=== PATIENT | male | born 1965 | race Caucasian/White ===

== ENCOUNTER 2022-08-18 15:30 | Outpatient (RCR) | payer OTHER, SELFPAY | END 2023-02-05 23:59 | disposition home or self-care (01) | PROVIDERS: PCP Family Medicine; Visit Provider Student in an Organized Health Care Education/Training Program | DX: M54.50 Low back pain, unspecified (principal); M70.61 Trochanteric bursitis, right hip; M54.6 Pain in thoracic spine; Z51.89 Encounter for other specified aftercare | CPT/HCPCS: 97110; 97140; 97162 ==

== ENCOUNTER 2023-02-17 07:01 | Day surgery (SDC) | payer OTHER, SELFPAY ==
[2023-02-17] VITALS (12 sets, daily range): BP systolic 130–157; BP diastolic 62–92; PULSE 52–68; RESP 12–16; TEMP 36.3–36.6; O2SAT 96–99; BMI 39.4
[2023-02-17] MEDS: SODIUM CHLORIDE 0.9 % (FLUSH) 10 ML SYRINGE IVF (07:50)
[2023-02-17] MEDS: LACTATED RINGERS 1000 ML 1,000 ML 100 ML IV (07:50)
--- NOTE | 2023-02-17 09:00 | W.ANESCHARGE ---
Anesthesia Charges Start Date/Time Anesthesia Start Date: 02/17/23 Anesthesia Start Time: 08:30 Stop Date/Time Anesthesia Stop Date: 02/17/23 Anesthesia Stop Time: 09:47
--- NOTE | 2023-02-17 09:10 | W.ANESCHARGE ---
Anesthesia Charges Start Date/Time Anesthesia Start Date: 02/17/23 Anesthesia Start Time: 08:30 Stop Date/Time Anesthesia Stop Date: 02/17/23 Anesthesia Stop Time: 09:47
--- NOTE | 2023-02-17 09:31 | P.ORPRC_ITS ---
Procedure Note Date of procedure: 02/17/23 Procedure: PREOPERATIVE DIAGNOSIS: Right knee medial meniscus root tear POSTOPERATIVE DIAGNOSIS: Right knee medial meniscus root tear NAME OF OPERATION: Right knee arthroscopic medial meniscus root repair SURGEON: Williams Ye MD FIRE PREVENTION CAPTAIN: Winifred Lovett PA-C ANESTHESIA: Spinal ESTIMATED BLOOD LOSS: 0 mL COMPLICATIONS: None SPECIMENS: None DRAINS: None PREOPERATIVE ANTIBIOTICS: Ancef 3 gram INDICATIONS: The patient is a 57-year-old male with a history of right knee medial pain. MRI scan is consistent with a medial meniscus root tear. Despite appropriate nonoperative management, including activity modification, antiinflammatories, [id number] pain medication, bracing, physical therapy, and injections they continue to have pain and disability. Operative intervention was offered. The risks, benefits and expected outcomes were discussed in detail. These included but were not limited to: Infection, bleeding, injury to blood vessel or nerve, venous thromboembolism. All questions were answered to their satisfaction. PROCEDURE: Spinal anesthesia was administered. The patient was placed supine on the operating room table. The right lower extremity was prepped and draped in the usual sterile fashion. The limb was exsanguinated with the Johnie bandage. The pneumatic tourniquet was inflated to 300 mmHg. A standard anterolateral portal was established. The arthroscope was introduced. The working portal was established anteromedially. Diagnostic arthroscopy was performed with findings as follows: The suprapatellar pouch is normal. Articular surface on the patella is normal. Articular surface on the trochlea is normal. The medial gutter is normal. The medial compartment shows diffuse grade 3 change on the medial femoral condyle, grade 2 change on the medial tibial plateau. The medial meniscus has a radial tear from the leading edge, to the capsule, just off of the posterior tibial attachment. This completely detached is it from the tibia. The notch shows the ACL to be intact. The lateral compartment shows normal articular cartilage on the lateral femoral condyle and lateral tibial plateau. The lateral meniscus is normal. The lateral gutter is normal. Unstable chondral flaps on the medial femoral condyle were debrided with the shaver. The knee scorpion was used to pass a fiber link x 2 in the posterior horn of the medial meniscus. The tibial drill guide was used over the footprint of the root. A longitudinal incision over the anteromedial face of the tibia was placed. The flip cutter was drilled into the footprint. The flip cutter was flipped and back cut 10 mm. It was removed and exchanged for a fiber stick. The fiber stick was brought out the anteromedial portal and was used to shuttle both of the fiber link luggage tag sutures on the posterior horn out the anteromedial tibia. We then tensioned the sutures and fixed them to the tibia with a SwiveLock anchor. This provided an excellent repair of the posterior tibial attachment of the medial meniscus to its anatomic footprint. Arthroscopic instruments were removed, the portal sites were Steri-Stripped closed, the incision over the tibia was closed with 3-0 Vicryl and 4-0 Monocryl, the knee was infiltrated with 30 mL of 0.25% Marcaine without epinephrine. A dry dressing was applied, the tourniquet was released. Sponge and needle counts were correct x 2. The patient tolerated the procedure well. There were no apparent complications. They were carefully transferred to the hospital bed and taken to the postanesthesia care unit in satisfactory condition. PLAN: The patient will be discharged to home. They will be strict nonweightbearing on the lower extremity for 6 weeks postoperatively. Range of motion will be allowed from 0-90 degrees x 2 weeks then unrestricted range of motion. They will follow up in 1-2 weeks for a wound check. We will
--- NOTE | 2023-02-17 09:32 | P.NB_ITS ---
Nerve Block Nerve Block Time Seen by Provider: 09:31 Date Seen: 02/17/23 Type of block requested by surgeon for post-operative analgesia: geniculars Side: right Time out performed: Yes Verification of patient name: Yes Verification of date of : Yes Site marking: site marked Name of person performing procedure: Tristan Continuous monitoring Was continuous monitoring of O2 sat, B/P, alarm security or surveillance monitor, recorded every 15 minutes?: Yes Procedure Checklist: sterile prep, needles and gloves Medications given in 5ml increments after negative aspiration: Ropivicaine %: 0.5 mL: 9 Needle gauge: 25 Patient tolerated procedure well: Yes Block Charges Block Charge (with Pro Fee): Genicular Nerve Block Use of Ultrasound Machine for Block: No
[2023-02-17] MEDS: fentaNYL 100 MCG/2 ML inj 50 MCG IVP (10:00)
[2023-02-17] MEDS: hydrOXYzine pamoate 25 MG CAPSULE PO (11:30)
[2023-02-17] MEDS: OxyCODONE/APAP 5-325 TABLET PO (11:30)
== END 2023-02-17 12:00 | disposition home or self-care (01) ==
PROVIDERS: PCP Family Medicine; Visit Provider Orthopaedic Surgery
PROC: (CPT 29882; principal; 2023-02-17 08:15)
DX: S83.241A Other tear of medial meniscus, current injury, right knee, initial encounter (principal); G89.18 Other acute postprocedural pain
CPT/HCPCS: 29882; 01400; 64454; 82962; A9270; C1713; J1100; J1170; J2250; J2405; J2704; J2795; J3010; J7120

== ENCOUNTER 2023-04-30 08:46 | Emergency (ER) | payer OTHER, SELFPAY ==
[2023-04-30 08:50] VITALS: BP 144/80; PULSE 76; RESP 16; TEMP 36.3; O2SAT 97; BMI 38.7
--- NOTE | 2023-04-30 09:09 | CRLHL7_ITS ---
For Patients: As a result of the Cures Act, medical imaging exams and procedure reports are released immediately into your electronic medical record. You may view this report before your referring provider. If you have questions, please contact your health care provider. Indication: SMASHED FINGER, 2ND DIGIT TIP PAIN Technique: Left hand 2nd digit, 3 views. Comparison: None. Impression: Mildly comminuted fracture involving the medial tuft of the 2nd distal phalanx. Tiny adjacent avulsed fracture fragments. Subjacent soft tissue swelling. Dictated by Marquise Beltran MD @ 04/30/2023 9:32:46 AM (Electronically Signed)
--- NOTE | 2023-04-30 09:10 | ED_ITS ---
HPI - Wound/Laceration General Chief Complaint: Laceration/Wound Stated Complaint: L pointer finger lac Time Seen by Provider: 04/30/23 08:55 History of Present Illness HPI narrative: Patient is a 57-year-old gentleman up-to-date on his tetanus shot who was working outside today pinched his finger between hitch and a left. He suffered a laceration approximately 3 cm in length on the palmar aspect of his left index finger. He is not certain whether the bone underneath the laceration feels broken. Is no neural muscular defects and hemostasis has been achieved. No other concerns are noted. No other injuries noted. Related Data Home Medications Medication Instructions Recorded Confirmed acetaminophen 500 mg tablet 500 mg PO Q6H PRN 01/12/23 04/30/23 (Tylenol Extra Strength) gabapentin 300 mg capsule 300 mg PO TID 01/12/23 04/30/23 naproxen sodium 220 mg capsule 220 mg PO BID PRN 01/12/23 04/30/23 (Aleve) tamsulosin 0.4 mg capsule 0.8 mg PO DAILY 01/12/23 04/30/23 tramadol 50 mg tablet 50 mg PO 3XD PRN 01/12/23 04/30/23 calcium citrate 315 mg-vitamin D3 1 tab PO TID 02/13/23 04/30/23 5 mcg (200 unit) tablet hyoscyamine sulfate 0.125 mg 0.125 mg PO Q4H PRN 02/13/23 04/30/23 sublingual tablet omeprazole 20 mg capsule,delayed 20 mg PO DAILY 02/13/23 04/30/23 release sildenafil 50 mg tablet 50 mg PO PRN PRN 02/13/23 04/30/23 valacyclovir 1 gram tablet 1,000 mg PO BID PRN 02/13/23 04/30/23 (Valtrex) Previous Rx's Medication Instructions Recorded cephalexin 500 mg capsule 500 mg PO TID 7 days #21 caps 04/30/23 Allergies Allergy/AdvReac Type Severity Reaction Status Date / Time penicillin V Allergy Mild Rash Verified 04/30/23 08:54 NSAIDS (Non-Steroidal AdvReac Verified 04/30/23 08:54 Anti-Inflamma Blood group specific Allergy Uncoded 04/01/23 10:48 Substance Review of Systems Status of ROS: Reports: 10 or more systems reviewed and unremarkable except as noted in History and below PFSH PFSH Medical History Hx of pilonidal cyst ?Z87.2 - Personal history of diseases of the skin and subcutaneous tissue (ICD-10) Type 2 diabetes mellitus ?E11.9 - Type 2 diabetes mellitus without complications (ICD-10) Pulmonary nodule ?R91.1 - Solitary pulmonary nodule (ICD-10) Neuropathy ?G62.9 - Polyneuropathy, unspecified (ICD-10) Anxiety state, unspecified ?F41.1 - Generalized anxiety disorder (ICD-10) Diverticulitis ?K57.92 - Diverticulitis of intestine, part unspecified, without perforation or abscess without bleeding (ICD-10) Plantar fasciitis of left foot (~2011) ?M72.2 - Plantar fascial fibromatosis (ICD-10) Medial epicondylitis, right elbow (~11/2017) ?M77.01 - Medial epicondylitis, right elbow (ICD-10) Lateral epicondylitis, right elbow (~11/2017) ?M77.11 - Lateral epicondylitis, right elbow (ICD-10) Bilateral shoulder bursitis ?M75.51 - Bursitis of right shoulder (ICD-10) ?M75.52 - Bursitis of left shoulder (ICD-10) Surgical History History of medial meniscus repair of right knee (02/17/23) ?Z98.890 - Other specified postprocedural states (ICD-10) Hx of vasectomy ?Z98.52 - Vasectomy status (ICD-10) History of bariatric surgery ?Z98.84 - Bariatric surgery status (ICD-10) History of arthroscopy of left knee (10/25/20) ?Z98.890 - Other specified postprocedural states (ICD-10) Family History Mother Lung cancer Diabetes Heart disease Father Diabetes Heart disease Other Aneurysm Bleeding disorder Social History Smoking Status: Never smoker Do you use any of these nicotine containing products: Smokeless Tobacco How often do you have a drink containing alcohol: monthly or less How many standard drinks containing alcohol do you have on a typical day: 1 or 2 How often do you have six or more drinks on one occasion: Never AUDIT-C Alcohol total score: 1 Non-prescribed substance use: denies use Caffeine: Yes (8c/day) service: No Exam Narrative: Exam Narrative: EXAM GENERAL: Patient appears comfortable and well. EYES: No scleral icterus. ENT: Tympanic membranes and oropharynx normal. THYROID: no thyroid nodules or thyromegaly. LYMPH: No supraclavicular or cervical lymphadenopathy. SKIN: Well-approximated laceration noted on the palmar surface of the index finger on the left. 3 cm in length. EXT: No dependent lower extremity pedal edema. HEART: Regular rate and rhythm with no murmurs, rubs, or gallops. LUNGS: Clear to auscultation bilaterally with no crackles or wheezes. ABD: Soft, non tender, non distended. PSYCH: Good eye contact, speech is not pressured. Const: Vital Signs, click to edit/add: Vital Signs - 24 hr 04/30/23 08:50 Temperature 97.4 F L Pulse Rate [Pulse Oximeter] 76 Respiratory Rate 16 Blood Pressure [Ri ght Upper Arm] 144/80 H Pulse Oximetry 97 Oxygen Delivery Me thod Room Air Course Course ED Course: Patient seen and examined. Wound is cleaned. X-ray ordered. Vital Signs Vital signs: Initial Vital Signs Temperature 97.4 F L 04/30/23 08:50 Temperature Source Temporal Artery Scan 04/30/23 08:50 Pulse Rate 76 04/30/23 08:50 Respiratory Rate 16 04/30/23 08:50 Blood Pressure 144/80 H 04/30/23 08:50 Blood Pressure Mean 101 04/30/23 08:50 Blood Pressure Position Sitting 04/30/23 08:50 Pulse Oximetry 97 04/30/23 08:50 Oxygen Delivery Method Room Air 04/30/23 08:50 Vital Signs Temperature 97.4 F L 04/30/23 08:50 Pulse Rate 76 04/30/23 08:50 Respiratory Rate 16 04/30/23 08:50 Blood Pressure 144/80 H 04/30/23 08:50 Pulse Oximetry 97 04/30/23 08:50 Oxygen Delivery Method Room Air 04/30/23 08:50 Temperature 97.4 F L 04/30/23 08:50 Pulse Rate 76 04/30/23 08:50 Respiratory Rate 16 04/30/23 08:50 Blood Pressure 144/80 H 04/30/23 08:50 Pulse Oximetry 97 04/30/23 08:50 Oxygen Delivery Method Room Air 04/30/23 08:50 MDM - Wound/Laceration MDM Narrative Medical decision making narrative: Patient is a 57-year-old gentleman who pinched his left index finger between his trailer and his hitch. He suffered a 3 cm laceration on the palmar surface of his left index finger. He on x-ray does have a small avulsion fracture at the tip of his finger. I did review this with Ortho I did recommend closure of the laceration as well as antibiotic prophylaxis. After explaining the risks and benefits I did provide a digital block of the left index finger. I then aggressively irrigated the wound after which I close the defect with 7 running 3-0 Ethilon [address] did place him in a protective with finger splint. We recommend that he get his sutures out in approximately 10 days. In addition, I did cover him with Keflex for the next week due to the location of his wound. Differential Diagnosis Differential diagnosis: Likely laceration, abscess, abrasion and avulsion of skin Discharge Plan Discharge Clinical Impression: Laceration Patient Disposition: Home, Self-Care Condition: Stable Instructions: Finger Laceration (ED) Additional Instructions: Keep wound covered in clean Change bandage daily Sutures out in approximately 10 days. Keflex for the next week. Activity Level: No Restrictions Discharge Diet: Regular Prescriptions: New cephalexin 500 mg capsule 500 mg PO TID 7 Days Qty: 21 0RF No Action tramadol 50 mg tablet 50 mg PO 3XD PRN gabapentin 300 mg capsule 300 mg PO TID tamsulosin 0.4 mg capsule 0.8 mg PO DAILY acetaminophen [Tylenol Extra Strength] 500 mg tablet 500 mg PO Q6H PRN naproxen sodium [Aleve] 220 mg capsule 220 mg PO BID PRN calcium citrate-vitamin D3 315 mg-5 mcg (200 unit) tablet 1 tab PO TID hyoscyamine sulfate 0.125 mg tablet, sublingual 0.125 mg PO Q4H PRN omeprazole 20 mg capsule,delayed release(DR/EC) 20 mg PO DAILY sildenafil 50 mg tablet 50 mg PO PRN PRN valacyclovir [Valtrex] 1 gram tablet 1,000 mg PO BID PRN Follow Up/Referrals: Trell Akins MD [Primary Care Provider] - Stand Alone Forms: [employer] [facility] Info Instructions
--- NOTE | 2023-04-30 09:47 | ED.NURSE ---
soaking the left hand in Hibiclens and water after Dr. Samayoa placed a local in the index finger on the left hand.
== END 2023-04-30 10:23 | disposition home or self-care (01) ==
PROVIDERS: Emergency Provider Internal Medicine; PCP Family Medicine
DX: S61.211A Laceration without foreign body of left index finger without damage to nail, initial encounter (principal); W23.0XXA Caught, crushed, jammed, or pinched between moving objects, initial encounter
CPT/HCPCS: 12002; 73140; 99283

== ENCOUNTER 2023-05-15 11:05 | Emergency (ER) | payer OTHER, SELFPAY ==
[2023-05-15 11:33] LABS: Appearance Urine Clear (Clear); Bilirubin Urine Negative (Negative); Blood Urine Negative (Negative); Color Urine Yellow (Yellow); Glucose Urine Negative (Negative); Ketones Urine Negative (Negative); Leukocyte Esterase Urine Negative (Negative); Nitrite Urine Negative (Negative); Protein Urine Negative (Negative); Specific Gravity Urine 1.015 (1.000-1.030); Urobilinogen Urine 0.2 (0.2-1.0); pH Urine 5.5 (5.0-8.5)
[2023-05-15 11:48] VITALS: BP 131/88; PULSE 75; RESP 18; TEMP 36.4; O2SAT 98; BMI 37.6
--- NOTE | 2023-05-15 12:21 | ED.ABDPAIN ---
HPI - Abdominal Pain General Time Seen by Provider: 12:21 Date Seen: 05/15/23 Chief Complaint: Abdominal Pain Stated Complaint: L side abdominal pain, diverticulitis flare up Time Seen by Provider: 05/15/23 12:21 Source: patient and RN notes reviewed Mode of arrival: ambulatory Limitations: no limitations History of Present Illness HPI narrative: Darline is a very pleasant 57-year-old gentleman with a history of diverticulitis, recent orthopedic surgeries who comes to the emergency room for evaluation of abdominal pain. Does notes that this started last night and seemed to be rather sudden. He states that within an hour it was rather severe. He is showing this to be his left upper quadrant. It is not associated with fever, chills. He has noticed increased constipation but no blood in his stools lately. He notes that he has had episodes of diverticulitis in the past in this particular area. It has not happened for a couple of years. He states he has had a colonoscopy and even a surgical consult but at the that time it was decided that he did not need to have surgery. He is preferring to lie still and seems to have more discomfort with movement. Patient does imply that the pain radiates to the left side of the abdomen and maybe even to the back a bit Patient did have COVID 3 weeks ago otherwise has been healthy with no fever cough cold today. Related Data Home Medications Medication Instructions Recorded Confirmed acetaminophen 500 mg tablet 500 mg PO Q6H PRN 01/12/23 05/13/23 (Tylenol Extra Strength) gabapentin 300 mg capsule 300 mg PO TID 01/12/23 05/13/23 naproxen sodium 220 mg capsule 220 mg PO BID PRN 01/12/23 05/13/23 (Aleve) tamsulosin 0.4 mg capsule 0.8 mg PO DAILY 01/12/23 05/13/23 tramadol 50 mg tablet 50 mg PO 3XD PRN 01/12/23 05/13/23 calcium citrate 315 mg-vitamin D3 1 tab PO TID 02/13/23 05/13/23 5 mcg (200 unit) tablet hyoscyamine sulfate 0.125 mg 0.125 mg PO Q4H PRN 02/13/23 05/13/23 sublingual tablet omeprazole 20 mg capsule,delayed 20 mg PO DAILY 02/13/23 05/13/23 release sildenafil 50 mg tablet 50 mg PO PRN PRN 02/13/23 05/13/23 valacyclovir 1 gram tablet 1,000 mg PO BID PRN 02/13/23 05/13/23 (Valtrex) Allergies Allergy/AdvReac Type Severity Reaction Status Date / Time penicillin V Allergy Mild Rash Verified 05/28/23 11:55 NSAIDS (Non-Steroidal AdvReac Verified 05/28/23 11:55 Anti-Inflamma Blood group specific Allergy Uncoded 05/13/23 14:33 Substance Review of Systems Status of ROS Reports: 10 or more systems reviewed and unremarkable except as noted in History and below Const Denies: fever, chills, change in weight or fatigue ENMT Denies: difficulty swallowing Cardio Denies: chest pain or shortness of breath with exertion Resp Denies: shortness of breath or cough GI Reports: abdominal pain and constipation; Denies: nausea, vomiting, diarrhea, difficulty swallowing or blood in stool Denies: painful urination or urinary frequency Endo Denies: fatigue PFSH PFSH Medical History Hx of pilonidal cyst ?Z87.2 - Personal history of diseases of the skin and subcutaneous tissue (ICD-10) Type 2 diabetes mellitus ?E11.9 - Type 2 diabetes mellitus without complications (ICD-10) Pulmonary nodule ?R91.1 - Solitary pulmonary nodule (ICD-10) Neuropathy ?G62.9 - Polyneuropathy, unspecified (ICD-10) Anxiety state, unspecified ?F41.1 - Generalized anxiety disorder (ICD-10) Diverticulitis ?K57.92 - Diverticulitis of intestine, part unspecified, without perforation or abscess without bleeding (ICD-10) Plantar fasciitis of left foot (~2011) ?M72.2 - Plantar fascial fibromatosis (ICD-10) Medial epicondylitis, right elbow (~11/2017) ?M77.01 - Medial epicondylitis, right elbow (ICD-10) Lateral epicondylitis, right elbow (~11/2017) ?M77.11 - Lateral epicondylitis, right elbow (ICD-10) Bilateral shoulder bursitis ?M75.51 - Bursitis of right shoulder (ICD-10) ?M75.52 - Bursitis of left shoulder (ICD-10) Surgical History History of medial meniscus repair of right knee (02/17/23) ?Z98.890 - Other specified postprocedural states (ICD-10) Hx of vasectomy ?Z98.52 - Vasectomy status (ICD-10) History of bariatric surgery ?Z98.84 - Bariatric surgery status (ICD-10) History of arthroscopy of left knee (10/25/20) ?Z98.890 - Other specified postprocedural states (ICD-10) Family History Mother Lung cancer Diabetes Heart disease Father Diabetes Heart disease Other Aneurysm Bleeding disorder Social History Smoking Status: Never smoker Do you use any of these nicotine containing products: Smokeless Tobacco Second hand tobacco smoke exposure: Yes How often do you have a drink containing alcohol: monthly or less How many standard drinks containing alcohol do you have on a typical day: 1 or 2 How often do you have six or more drinks on one occasion: Never AUDIT-C Alcohol total score: 1 Non-prescribed substance use: denies use Caffeine: Yes (8c/day) service: No Exam Narrative: Exam Narrative: Patient is alert and oriented very well-spoken gentleman in no acute distress. He is moving slowly it does appear to be uncomfortable with movement. External ears eyes nose clear. Speech is normal mentation normal. Heart with regular rate and rhythm without murmur or rub Lungs are clear bilaterally. Abdomen is soft and not bloated. Tenderness noted in the left upper quadrant. No significant rebound tenderness. Lower extremities without edema calf tenderness. Const: Vital Signs, click to edit/add: Vital Signs - 24 hr 05/15/23 11:48 Temperature 97.6 F Pulse Rate [Pulse Oximeter] 75 Respiratory Rate 18 Blood Pressure [Ri ght Upper Arm] 131/88 Pulse Oximetry 98 Oxygen Delivery Me thod Room Air Documenting provider has reviewed patient's vital signs: yes Course Course ED Course: Differential diagnosis includes but is not limited to colitis, diverticulitis, internal hernia, musculoskeletal issue, shingles. We will place IV and give Toradol and fluids. We will check labs to include CBC, Comp panel, CRP. Abd CT with contrast, as well. Reevaluation(s) Reevaluation #1: Patient noted to be much improved with Toradol Vital Signs Vital signs: Initial Vital Signs Temperature 97.6 F 05/15/23 11:48 Temperature Source Temporal Artery Scan 05/15/23 11:48 Pulse Rate 75 05/15/23 11:48 Pulse Rhythm Regular 05/15/23 11:48 Respiratory Rate 18 05/15/23 11:48 Blood Pressure 131/88 05/15/23 11:48 Blood Pressure Mean 102 05/15/23 11:48 Blood Pressure Position Sitting 05/15/23 11:48 Pulse Oximetry 98 05/15/23 11:48 Oxygen Delivery Method Room Air 05/15/23 11:48 Vital Signs Temperature 97.6 F 05/15/23 11:48 Pulse Rate 75 05/15/23 11:48 Respiratory Rate 18 05/15/23 11:48 Blood Pressure 131/88 05/15/23 11:48 Pulse Oximetry 98 05/15/23 11:48 Oxygen Delivery Method Room Air 05/15/23 11:48 Temperature 97.6 F 05/15/23 11:48 Pulse Rate 75 05/15/23 11:48 Respiratory Rate 18 05/15/23 11:48 Blood Pressure 131/88 05/15/23 11:48 Pulse Oximetry 98 05/15/23 11:48 Oxygen Delivery Method Room Air 05/15/23 11:48 MDM - Abdominal Pain MDM Narrative Medical decision making narrative: 1. Diverticulitis - Diverticulitis of the proximal descending colon noted on CT. White count normal, CRP elevated at 5.7. No evidence of sepsis or abscess or perfpration at this time. WIll treat with Flagyl 500mg tid x 7 days as well as Cipro 500mg bid x 7 days. Suggest follow up with primary MD before the end of the seven days as with ongoing pain, we may want to extend the dosing for additional days. Push fluids. For pain, Vicodin 5.325 1-2 tabs q6 hours prn. Using sparingly and take a stool softener. 2. Cholelithiasis - no evidence of cholecystitis. 3. Disposition - home with clinic follow up. Suggest scheduling of colonoscopy in the near future. Return for increasing abd pain, vomiting, fever and worsening symptoms. Medical Records Attestation: I reviewed the patient's medical records. Lab Data Attestation: I reviewed the patient's lab results. Labs: Lab Results 05/15/23 05/15/23 Range/Units 11:10 13:03 WBC 7.53 (4.50-11.00) K/uL RBC 4.44 (4.30-5.90) m/uL Hgb 14.0 (13.5-17.5) gm/dL Hct 42.3 (37.0-53.0) % MCV 95 (80-100) fL MCH 32 (26-34) pg MCHC 33 (32-36) gm/dL RDW Coeff of Mariia 13.1 (11.5-15.5) % Plt Count 206 (140-440) K/uL Neut % (Auto) 71.5 (42.0-72.0) % Lymph % (Auto) 17.3 L (20-44) % [place] % (Auto) 8.5 (0.0-11.0) % Eos % (Auto) 1.6 (0.0-7.0) % Baso % (Auto) 0.3 (0.0-3.0) % Neut # (Auto) 5.39 (1.7-7.0) K/uL Lymph # (Auto) 1.30 (0.90-2.90) K/uL [place] # (Auto) 0.60 (0.00-0.90) K/UL Eos # (Auto) 0.12 (0.00-0.50) K/uL Baso # (Auto) 0.02 (0.00-0.30) K/uL Abs Immat Gran (auto) 0.06 (0.00-0.30) K/uL Imm/Tot Granulo (auto) 0.8 % Sodium 138 (135-149) mmol/L Potassium 4.1 (3.6-5.1) mmol/L Chloride 103 (96-114) mmol/L Carbon Dioxide 28 (20-32) mmol/L Anion Gap 7 (7-15) mEq/L BUN 13 (7-30) mg/dL Creatinine 0.9 (0.5-1.5) mg/dL Estimated Creat Clear 103.57 Estimated GFR 100 ml/min Glucose 106 (60-115) mg/dL Calcium 9.0 (8.4-10.6) mg/dL Total Bilirubin 1.1 (0.1-1.5) mg/dL AST 24 (12-35) U/L ALT 19 (4-50) U/L Alkaline Phosphatase 75 (40-150) U/L C-Reactive Protein 5.7 H (0.5-1.0) mg/dL Total Protein 7.1 (6.0-8.3) g/dL Albumin 4.2 (3.3-5.0) g/dL Urine Color Yellow (Yellow) Urine Appearance Clear (Clear) Urine pH 5.5 (5.0-8.5) Ur Specific [place] 1.015 (1.000-1.030) Urine Protein Negative (Negative) Urine Glucose (UA) Negative (Negative) Urine Ketones Negative (Negative) Urine Blood Negative (Negative) Urine Nitrite Negative (Negative) Urine Bilirubin Negative (Negative) Urine Urobilinogen 0.2 (0.2-1.0) Ur Leukocyte Esterase Negative (Negative) Imaging Data CT scan - abdomen: Attestation: I have reviewed the pertinent imaging results. My impression: NO evidence of free air, Suspect diverticulitis Radiologist's impression: Lower chest: Discoid atelectasis in the right middle lobe and right lower lobe. Liver: Diffusely decreased density of the liver with calcification consistent with old granulomatous disease. Gallbladder and bile ducts: Minimal density within the dependent portion of the gallbladder, likely cholelithiasis Spleen: Unremarkable. Normal in size without mass. Pancreas: Unremarkable. No mass or inflammation. Adrenal glands: Unremarkable. No nodules. Kidneys: Unremarkable. No masses, stones, or hydronephrosis. Vasculature: Unremarkable. GI tract: The patient is status post a gastric bypass. No dilated loops of large or small intestine. Normal appendix. Colonic diverticulosis with focal inflammation adjacent to a proximal descending colon diverticulum. Trace fascial thickening. No abscess. Pelvis: Unremarkable. Bones: Degenerative disc disease lumbar spine. IMPRESSION: 1. Acute diverticulitis proximal descending colon without evidence of abscess. 2. Moderate hepatic steatosis. 3. Likely cholelithiasis without evidence of cholecystitis. Discharge Plan Discharge Clinical Impression: Diverticulitis, Cholelithiasis Patient Disposition: Home, Self-Care Condition: Improved Additional Instructions: 2 antibiotics will be utilized for the treatment of diverticulitis: Flagyl and Cipro. Do not use alcohol with either of these medications. Complete the full treatment. Follow-up with your MD in about 1 week because if you are having continued pain they may extend both of these medications for an additional 5 4-7 days. For discomfort you may use Vicodin sparingly. This is a narcotic containing medication mixed with Tylenol. This will make you constipated so you will want to start on a stool softener. Return to the emergency room for worsening symptoms and as needed. Again, follow-up with your MD/surgeon to see if they want to do a colonoscopy in a month. Note on your CT there was evidence of gallbladder stones in the gallbladder. However, they are not causing any problems. Stones will cause problems when they tried to escape and blocked the ducts Prescriptions: No Action tramadol 50 mg tablet 50 mg PO 3XD PRN gabapentin 300 mg capsule 300 mg PO TID tamsulosin 0.4 mg capsule 0.8 mg PO DAILY acetaminophen [Tylenol Extra Strength] 500 mg tablet 500 mg PO Q6H PRN naproxen sodium [Aleve] 220 mg capsule 220 mg PO BID PRN calcium citrate-vitamin D3 315 mg-5 mcg (200 unit) tablet 1 tab PO TID hyoscyamine sulfate 0.125 mg tablet, sublingual 0.125 mg PO Q4H PRN omeprazole 20 mg capsule,delayed release(DR/EC) 20 mg PO DAILY sildenafil 50 mg tablet 50 mg PO PRN PRN valacyclovir [Valtrex] 1 gram tablet 1,000 mg PO BID PRN Follow Up/Referrals: Trell Akins MD [Primary Care Provider] - Stand Alone Forms: [facility] Schouer Info Instructions
--- NOTE | 2023-05-15 12:28 | CRLHL7_ITS ---
For Patients: As a result of the Century Cures Act, medical imaging exams and procedure reports are released immediately into your electronic medical record. You may view this report before your referring provider. If you have questions, please contact your health care provider. INDICATION: Left upper quadrant pain TECHNIQUE: Axial images were obtained from the diaphragm to the pubic symphysis. Reformats were obtained in the coronal and sagittal plane. IV Contrast: 139 cc Isovue 370 Oral Contrast: None COMPARISON: Abdomen and pelvis CT 10/29/2017 FINDINGS: Lower chest: Discoid atelectasis in the right middle lobe and right lower lobe. Liver: Diffusely decreased density of the liver with calcification consistent with old granulomatous disease. Gallbladder and bile ducts: Minimal density within the dependent portion of the gallbladder, likely cholelithiasis Spleen: Unremarkable. Normal in size without mass. Pancreas: Unremarkable. No mass or inflammation. Adrenal glands: Unremarkable. No nodules. Kidneys: Unremarkable. No masses, stones, or hydronephrosis. Vasculature: Unremarkable. GI tract: The patient is status post a gastric bypass. No dilated loops of large or small intestine. Normal appendix. Colonic diverticulosis with focal inflammation adjacent to a proximal descending colon diverticulum. Trace fascial thickening. No abscess. Pelvis: Unremarkable. Bones: Degenerative disc disease lumbar spine. IMPRESSION: 1. Acute diverticulitis proximal descending colon without evidence of abscess. 2. Moderate hepatic steatosis. 3. Likely cholelithiasis without evidence of cholecystitis. Please note that all CT scans at this facility use dose modulation, iterative reconstruction, and/or weight-based dosing when appropriate to reduce radiation dose to as low as reasonably achievable. Dictated by Choco Begum MD @ 05/15/2023 2:36:03 PM (Electronically Signed)
[2023-05-15 13:14] LABS: Basophils Absolute Auto 0.02 K/uL (0.00-0.30); Basophils Percent Auto 0.3 % (0.0-3.0); Eosinophils Absolute Auto 0.12 K/uL (0.00-0.50); Eosinophils Percent Auto 1.6 % (0.0-7.0); Hematocrit 42.3 % (37.0-53.0); Immature Granulocytes Abs Auto 0.06 K/uL (0.00-0.30); Immature Granulocytes Pct Auto 0.8 %; Lymphocytes Percent Auto 17.3 % (20-44); Mean Corpuscular HGB Conc 33 gm/dL (32-36); Mean Corpuscular Hemoglobin 32 pg (26-34); Mean Corpuscular Volume 95 fL (80-100); Monocytes Percent Auto 8.5 % (0.0-11.0); Neutrophils Absolute Auto 5.39 K/uL (1.7-7.0); Neutrophils Percent Auto 71.5 % (42.0-72.0); Platelet Count* 206 K/uL (140-440); RDW Coefficient of Variation % 13.1 % (11.5-15.5); Red Blood Count 4.44 m/uL (4.30-5.90); White Blood Count* 7.53 K/uL (4.50-11.00)
[2023-05-15 13:15] LABS: Slide Review Reflex No
[2023-05-15 13:29] LABS: Albumin* 4.2 g/dL (3.3-5.0); Chloride* 103 mmol/L (96-114); Sodium* 138 mmol/L (135-149)
[2023-05-15 13:30] LABS: Potassium* 4.1 mmol/L (3.6-5.1)
[2023-05-15 13:31] LABS: Creatinine* 0.9 mg/dL (0.5-1.5); Est. Creatinine Clearance* 103.57
[2023-05-15 13:32] LABS: Alanine Aminotransferase* 19 U/L (4-50); Alkaline Phosphatase* 75 U/L (40-150); Anion Gap 7 mEq/L (7-15); Aspartate Amino Transferase* 24 U/L (12-35); Bilirubin Total* 1.1 mg/dL (0.1-1.5); Blood Urea Nitrogen* 13 mg/dL (7-30); Carbon Dioxide* 28 mmol/L (20-32); Estimated Glomerular Filt Rate 100 ml/min; Total Protein* 7.1 g/dL (6.0-8.3)
[2023-05-15 13:33] LABS: Glucose* 106 mg/dL (60-115)
[2023-05-15 13:35] LABS: C Reactive Protein* 5.7 mg/dL (0.5-1.0)
[2023-05-15] MEDS: KETOROLAC 15 MG/ML inj IVP (13:45)
[2023-05-15] MEDS: 0.9 % SODIUM CHLORIDE 1000 ml 1,000 ML IV (13:46)
== END 2023-05-15 15:04 | disposition home or self-care (01) ==
PROVIDERS: Emergency Provider Family Medicine; PCP Family Medicine
DX: K80.20 Calculus of gallbladder without cholecystitis without obstruction (principal)
CPT/HCPCS: 36415; 74177; 80053; 81001; 81003; 85025; 86140; 96374; 99284; J1885; J7030; Q9967

== ENCOUNTER 2023-05-22 16:15 | Outpatient (RCR) | payer OTHER, SELFPAY | END 2023-08-07 17:20 | disposition home or self-care (01) | PROVIDERS: PCP Family Medicine; Visit Provider Orthopaedic Surgery | DX: S83.241A Other tear of medial meniscus, current injury, right knee, initial encounter (principal); Z02.6 Encounter for examination for insurance purposes; Z98.890 Other specified postprocedural states; M25.561 Pain in right knee; M25.661 Stiffness of right knee, not elsewhere classified; Z48.89 Encounter for other specified surgical aftercare | CPT/HCPCS: 97110; 97116; 97161 ==

== ENCOUNTER 2023-05-28 11:13 | Outpatient (CLI) | payer OTHER, SELFPAY | END 2023-05-28 11:14 | disposition home or self-care (01) | PROVIDERS: PCP Family Medicine; Visit Provider Student in an Organized Health Care Education/Training Program | DX: M54.9 Dorsalgia, unspecified (principal) | CPT/HCPCS: A0425; A0427 ==

== ENCOUNTER 2023-05-28 11:42 | Emergency (ER) | payer OTHER, SELFPAY ==
[2023-05-28 11:49] VITALS: BP 143/85; PULSE 59; RESP 18; TEMP 36.6; O2SAT 98; BMI 42.3
--- NOTE | 2023-05-28 12:14 | CRLHL7_ITS ---
For Patients: As a result of the Century Cures Act, medical imaging exams and procedure reports are released immediately into your electronic medical record. You may view this report before your referring provider. If you have questions, please contact your health care provider. INDICATION: Cold foot. Left foot pain. TECHNIQUE: Right lower extremity arterial duplex ultrasound with color Doppler and spectral waveform analysis. COMPARISON: None. FINDINGS: Atherosclerosis is present. Arterial blood flow is as follows: Common femoral: 101 cm/sec. Triphasic. The femoral: 149 cm/sec. Triphasic. Femoral proximal: 99 cm/sec. Triphasic. Femoral mid: 76 cm/sec. Triphasic. Femoral distal: 67 cm/sec. Triphasic. Popliteal: 70 cm/sec. Triphasic. Peroneal: 67 cm/sec. Triphasic. Posterior tibial: 90 cm/sec. Triphasic. Anterior tibial: 42 cm/sec. Biphasic. Dorsalis pedis: 22 cm/sec. Biphasic. IMPRESSION: Unremarkable ultrasound of the right lower extremity arteries. No major occlusions or significant stenoses. Blood flow is demonstrated in the foot. Dictated by Aly Hawk MD @ 05/28/2023 3:26:01 PM (Electronically Signed)
--- NOTE | 2023-05-28 12:16 | ED_ITS ---
HPI - General Adult General Date Seen: 05/28/23 Chief complaint: Extremity Pain/Injury, Lower Stated complaint: Back pain Time Seen by Provider: 05/28/23 12:01 Source: patient and old records reviewed Mode of arrival: EMS Limitations: no limitations History of Present Illness HPI narrative: Patient is a 57-year-old male who has had chronic left foot pain for over a decade. It sounds like he had attributed this to plantar fasciitis but the diagnosis may have come in to question and he was treated today with a sympathetic nerve block to help with pain. This was done at [facility]. He is not sure what imaging he had prior to this. He says after the procedure he had some difficulty moving his leg which they said was not unexpected. He knows that they put something in with a kevin at the end of it. He went home feeling okay otherwise and after a few hours developed severe pain in the left back. He does not have any numbness, movement has improved although he says it hurts to move. He did call the clinic but says that while he was on the phone with them he just changed his mind and called 911. He received morphine EN route and is feeling better. He does not have a history of diabetes or vascular disease that he is aware of. He was unable to walk due to pain. Related Data Home Medications Medication Instructions Recorded Confirmed acetaminophen 500 mg tablet 500 mg PO Q6H PRN 01/12/23 05/13/23 (Tylenol Extra Strength) gabapentin 300 mg capsule 300 mg PO TID 01/12/23 05/13/23 naproxen sodium 220 mg capsule 220 mg PO BID PRN 01/12/23 05/13/23 (Aleve) tamsulosin 0.4 mg capsule 0.8 mg PO DAILY 01/12/23 05/13/23 tramadol 50 mg tablet 50 mg PO 3XD PRN 01/12/23 05/13/23 calcium citrate 315 mg-vitamin D3 1 tab PO TID 02/13/23 05/13/23 5 mcg (200 unit) tablet hyoscyamine sulfate 0.125 mg 0.125 mg PO Q4H PRN 02/13/23 05/13/23 sublingual tablet omeprazole 20 mg capsule,delayed 20 mg PO DAILY 02/13/23 05/13/23 release sildenafil 50 mg tablet 50 mg PO PRN PRN 02/13/23 05/13/23 valacyclovir 1 gram tablet 1,000 mg PO BID PRN 02/13/23 05/13/23 (Valtrex) Allergies Allergy/AdvReac Type Severity Reaction Status Date / Time penicillin V Allergy Mild Rash Verified 05/28/23 11:55 NSAIDS (Non-Steroidal AdvReac Verified 05/28/23 11:55 Anti-Inflamma Blood group specific Allergy Uncoded 05/13/23 14:33 Substance Review of Systems Status of ROS: Reports: 6 or more systems reviewed and unremarkable except as noted in History and below [facility] Medical History Hx of pilonidal cyst ?Z87.2 - Personal history of diseases of the skin and subcutaneous tissue (ICD-10) Type 2 diabetes mellitus ?E11.9 - Type 2 diabetes mellitus without complications (ICD-10) Pulmonary nodule ?R91.1 - Solitary pulmonary nodule (ICD-10) Neuropathy ?G62.9 - Polyneuropathy, unspecified (ICD-10) Anxiety state, unspecified ?F41.1 - Generalized anxiety disorder (ICD-10) Diverticulitis ?K57.92 - Diverticulitis of intestine, part unspecified, without perforation or abscess without bleeding (ICD-10) Plantar fasciitis of left foot (~2011) ?M72.2 - Plantar fascial fibromatosis (ICD-10) Medial epicondylitis, right elbow (~11/2017) ?M77.01 - Medial epicondylitis, right elbow (ICD-10) Lateral epicondylitis, right elbow (~11/2017) ?M77.11 - Lateral epicondylitis, right elbow (ICD-10) Bilateral shoulder bursitis ?M75.51 - Bursitis of right shoulder (ICD-10) ?M75.52 - Bursitis of left shoulder (ICD-10) Surgical History History of medial meniscus repair of right knee (02/17/23) ?Z98.890 - Other specified postprocedural states (ICD-10) Hx of vasectomy ?Z98.52 - Vasectomy status (ICD-10) History of bariatric surgery ?Z98.84 - Bariatric surgery status (ICD-10) History of arthroscopy of left knee (10/25/20) ?Z98.890 - Other specified postprocedural states (ICD-10) Family History Mother Lung cancer Diabetes Heart disease Father Diabetes Heart disease Other Aneurysm Bleeding disorder Social History Smoking Status: Never smoker Do you use any of these nicotine containing products: Smokeless Tobacco Second hand tobacco smoke exposure: Yes How often do you have a drink containing alcohol: monthly or less How many standard drinks containing alcohol do you have on a typical day: 1 or 2 How often do you have six or more drinks on one occasion: Never AUDIT-C Alcohol total score: 1 Non-prescribed substance use: denies use Caffeine: Yes (8c/day) service: No Exam Narrative: Exam Narrative: Vital signs as noted above. In general, an alert, well-appearing patient. Looks comfortable this time. Head: Normocephalic, atraumatic. Eyes: Pupils are equal reactive. Extraocular movements are full. Conjunctivae are normal. ENT: Mucous membranes are moist. Throat is normal. Neck: Supple without lymphadenopathy. Heart: Regular rate and rhythm. No murmur or rub. Lungs: Clear bilaterally. No increased work of breathing, crackles or wheezes. Abdomen: Soft and nontender. No organomegaly. Extremities: Both feet are warm and appear well perfused, capillary refill less than 2 seconds. He has an easily palpable pulse on the right, I am not able to palpate a pulse on the left. Neurologic: Patient is alert and oriented to person and place. Speech is fluent. Face is symmetric. Moves all extremities equally. Strength is 5 of 5 in bilateral lower extremities, sensation is intact to light touch. Notes back pain with active flexion of left hip. Affect: Normal. Skin: Warm and dry. Well perfused. Const: Vital Signs, click to edit/add: Vital Signs - 24 hr 05/28/23 11:49 Temperature 97.8 F Pulse Rate [Right Pulse Oximeter] 59 L Respiratory Rate 18 Blood Pressure [Ri ght Upper Arm] 143/85 H Pulse Oximetry 98 Oxygen Delivery Me thod Room Air Documenting provider has reviewed patient's vital signs: yes Course Course ED Course: I had the nurse try to Doppler a pulse and she is not able to find 1 with the Doppler either. His foot certainly does not look like it is poorly perfused but in the presence of severe pain following this injection I think we do need to make sure that arterial supply is normal. I have ordered an ultrasound to that effect. Ultrasound showed good blood flow to the foot. Patient complained more more of back pain in the left low lumbar region. Had some tenderness in that area. Did not have fever, neurologic exam remained intact. I did talk with somebody at the pain clinic as to whether not this was typical after sympathetic nerve block, felt to be outside the range of typical and ultimately I decided to do an MRI to evaluate for any evidence of hematoma. In the meantime, he had a couple more doses of morphine and then an oxycodone. He is able to be up and ambulatory with a walker. MRI of the lumbar spine read by Radiology showing a small fluid collection in the psoas muscle about 2 cm, unclear whether this is hematoma or residual fluid from his injection. I talked with the doctor on-call at the [facility] and he said that they typically inject 10 mL of lidocaine which may account for that small fluid collection. I do not think that is infection given that he just had his injection earlier today. The myositis apparently is not unexpected related to the injection itself, and the pain clinic doctor felt it was reasonable to give him pain management and observation. Would anticipate this should gradually improve over the next few days. It should not get significantly worse. If severe uncontrolled pain, new symptoms such as fever or neurologic changes return at any time. Otherwise I have asked him to check in with the pain clinic unless he is feeling significantly improved by Thursday. Vital Signs Vital signs: Initial Vital Signs Temperature 97.8 F 05/28/23 11:49 Temperature Source Temporal Artery Scan 05/28/23 11:49 Pulse Rate 59 L 05/28/23 11:49 Pulse Rhythm Regular 05/28/23 11:49 Pulse Strength 3+ Normal 05/28/23 11:49 Respiratory Rate 18 05/28/23 11:49 Blood Pressure 143/85 H 05/28/23 11:49 Blood Pressure Mean 104 05/28/23 11:49 Blood Pressure Position Sitting 05/28/23 11:49 Pulse Oximetry 98 05/28/23 11:49 Oxygen Delivery Method Room Air 05/28/23 11:49 Vital Signs Temperature 97.8 F 05/28/23 11:49 Pulse Rate 59 L 05/28/23 11:49 Respiratory Rate 18 05/28/23 11:49 Blood Pressure 143/85 H 05/28/23 11:49 Pulse Oximetry 98 05/28/23 11:49 Oxygen Delivery Method Room Air 05/28/23 11:49 Temperature 97.8 F 05/28/23 11:49 Pulse Rate 59 L 05/28/23 11:49 Respiratory Rate 18 05/28/23 11:49 Blood Pressure 143/85 H 05/28/23 11:49 Pulse Oximetry 98 05/28/23 11:49 Oxygen Delivery Method Room Air 05/28/23 11:49 Medications Administered Medications: Discontinued Medications Generic Name Dose Route Start Last Admin Trade Name Jennie PRN Reason Stop Dose Admin Morphine Sulfate 4 mg 05/28/23 12:54 05/28/23 13:03 Morphine 4 Mg/Ml Inj IVP 05/28/23 12:55 4 mg ONCE ONE Administration Discharge Plan Discharge Clinical Impression: Myositis Patient Disposition: Home, Self-Care Condition: Improved Additional Instructions: Your MRI shows inflammation of the psoas muscle. Your spinal cord is normal. For now, we will manage pain with ibuprofen and/or Tylenol, with oxycodone for more significant pain. Pain should gradually improve over the next few days, check in with your clinic on Thursday if not significantly improved. For wo rsening, severe uncontrolled pain, new symptoms such as fever or neurologic changes, return to the emergency department at any time. Prescriptions: No Action tramadol 50 mg tablet 50 mg PO 3XD PRN gabapentin 300 mg capsule 300 mg PO TID tamsulosin 0.4 mg capsule 0.8 mg PO DAILY acetaminophen [Tylenol Extra Strength] 500 mg tablet 500 mg PO Q6H PRN naproxen sodium [Aleve] 220 mg capsule 220 mg PO BID PRN calcium citrate-vitamin D3 315 mg-5 mcg (200 unit) tablet 1 tab PO TID hyoscyamine sulfate 0.125 mg tablet, sublingual 0.125 mg PO Q4H PRN omeprazole 20 mg capsule,delayed release(DR/EC) 20 mg PO DAILY sildenafil 50 mg tablet 50 mg PO PRN PRN valacyclovir [Valtrex] 1 gram tablet 1,000 mg PO BID PRN Follow Up/Referrals: Trell Akins MD [Primary Care Provider] - Stand Alone Forms: [employer] Info Instructions
[2023-05-28] MEDS: MORPHINE 4 MG/ML INJ IVP (13:03)
--- NOTE | 2023-05-28 14:47 | CRLHL7_ITS ---
For Patients: As a result of the Century Cures Act, medical imaging exams and procedure reports are released immediately into your electronic medical record. You may view this report before your referring provider. If you have questions, please contact your health care provider. Indication: Severe back pain. Recent lumbar sympathetic nerve block injection. Technique: Multiplanar, multisequence MRI of the lumbar spine was performed without intravenous contrast. Comparison: CT abdomen/pelvis 05/15/2023. Findings: There are 5 lumbar type vertebral segments identified. The vertebral body heights are maintained without evidence of fracture. There is no discrete T1 hypointense marrow infiltrating process. The conus medullaris terminates at L1, normal. Cauda equina appears unremarkable. T12-L1: No spinal canal or neural foraminal stenosis. L1-2: No spinal canal or neural foraminal stenosis. L2-3: Disc degeneration. Minimal disc bulge without spinal canal or neural foraminal narrowing. Facet arthropathy. L3-4: Disc degeneration. Mild disc bulge without spinal canal narrowing. Mild neural foraminal narrowing. Mild facet arthropathy. L4-5: Disc degeneration. Disc bulge coupled with facet hypertrophy resulting in mild spinal canal narrowing. Mild neural foraminal narrowing. Moderate facet arthropathy. L5-S1: Disc degeneration. Disc bulge coupled with facet hypertrophy and ligamentum flavum thickening resulting in mild spinal canal narrowing. Mild neural foraminal narrowing. Moderate facet arthropathy. The visualized sacroiliac joints appear patent. There is enlargement and T2 hyperintensity involving the left psoas muscle. There appears a small, 2.2 x 1.9 cm fluid collection located within the psoas muscle centered at the L3-4 disc level. Impression: 1. Small left psoas intramuscular fluid collection or hematoma, with surrounding myositis. 2. Mild multilevel spondylosis throughout the lumbar spine. The above findings were communicated over the telephone with Dr. Pat Childers by Dr. Pacheco at 1713 hours on 05/28/2023. Dictated by Silver Pacheco MD @ 05/28/2023 5:14:41 PM (Electronically Signed)
== END 2023-05-28 18:37 | disposition home or self-care (01) ==
PROVIDERS: Emergency Provider Emergency Medicine; PCP Family Medicine
DX: M60.9 Myositis, unspecified (principal)
CPT/HCPCS: 72148; 93926; 96374; 99283; 99284; J2270

== ENCOUNTER 2023-08-16 00:10 | Observation (INO) | payer OTHER, SELFPAY ==
[2023-08-16] VITALS (10 sets, daily range): BP systolic 113–137; BP diastolic 70–91; PULSE 57–70; RESP 16–18; TEMP 36.3–36.8; O2SAT 95–98; BMI 36.9; BMI 38.8
--- NOTE | 2023-08-16 00:27 | CRLHL7_ITS ---
For Patients: As a result of the Century Cures Act, medical imaging exams and procedure reports are released immediately into your electronic medical record. You may view this report before your referring provider. If you have questions, please contact your health care provider. INDICATION: Left lower quadrant pain, constipation for 1 week TECHNIQUE: CT abdomen and pelvis acquired with 138 cc Isovue 370 IV contrast. Permanently recorded images are archived. COMPARISON: CT abdomen and pelvis 05/15/2023 FINDINGS: Lower chest: Unremarkable. Liver: Calcified granuloma. Normal in size and attenuation. No suspicious masses. Gallbladder and bile ducts: Cholelithiasis. No inflammation or biliary ductal dilation. Pancreas: Unremarkable. No mass or inflammation. Spleen: Unremarkable. Normal in size. No masses. Adrenal glands: Unremarkable. No nodules. Kidneys, Ureters, and Bladder: Unremarkable. No suspicious masses, stones, or hydronephrosis. Unremarkable ureters and bladder. GI tract: Prior Sarah-en-Y gastric bypass. No bowel obstruction. Distal colon diverticulosis. Short-segment mural thickening and pericolonic inflammation about an inflamed diverticulum within the mid descending colon. No evidence for perforation or abscess. Normal appendix. Vasculature: Abdominal aorta is normal in caliber. Mesenteric arteries are patent. Lymph nodes: No lymphadenopathy. Peritoneum/Abdominal Wall: Unremarkable. No free air or significant free fluid. Pelvis: Unremarkable. Bones: Unremarkable for age. IMPRESSION: 1. Acute uncomplicated mid descending colon diverticulitis. 2. Cholelithiasis. Please note that all CT scans at this facility use dose modulation, iterative reconstruction, and/or weight-based dosing when appropriate to reduce radiation dose to as low as reasonably achievable. Dictated by Moses Andrade MD @ 08/16/2023 1:56:50 AM (Electronically Signed)
[2023-08-16] MEDS: 0.9 % SODIUM CHLORIDE 1000 ml 1,000 ML IV (00:40)
--- OUTSIDE RECORDS SUMMARY | 2023-08-16 00:46 | XMS_ITS | Encounter Summary ---
Author Name Unknown Organization [facility] Address [address] [place] [address] Care Team Providers Care Clay Structure Builder And Servicer Name Role Phone Trell Akins MD Primary Care Provider [phone] Encounter Details Date Type Department Care Team Description 05/25/2007 Consent for Procedure/Treatme nt [facility] [address] [place] [address]. 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
--- OUTSIDE RECORDS SUMMARY | 2023-08-16 00:46 | XMS_ITS | Data Portability ---
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 Plan of Treatment Reminders Order Date Submit Date Provider Last Modified By Organization Details Last Modified Time Details Appointments ESTABLISH ED 20 2023 03:20P Geovani Aguilar PAC Not available Not available Not available Lab None recorded. Referral None recorded. Procedures None recorded. Surgeries None recorded. Imaging None recorded. Medication Orders tadalafil 10 mg tablet 2022 023 Amanda Huff DBA [id number], [address] [place], [place], [phone], 04/28/2023 16:13:15 oxybutyni n chloride ER 5 mg tablet,ex tended release 24 hr 2022 023 [id number], [address] [place], [place], [phone], 04/28/2023 16:23:57 Patient TargetsNo targets recorded. Patient Instructions Encounter Date Encounter Id Patient Instructions Last Modified By Organization Details Last Modified Time 04/28/2023 [id number] 57 y/o male presents for an evaluation of peyronies disease, ED and voiding dysfunction Peyronie's disease - Educated patient on peyronies disease and treatment options available such as surveillance, oral medications, xiaflex, RestoreX penile traction device and surgery. Patient is not bothered enough by the symptoms to pursue treatment. He will continue to monitor for worsening of symptoms. ED - Educated on etiology of ED (hormonal, nerve function, blood supply, psychological, medications). Discussed diagnostics such as penile US and testosterone labs. Educated on treatment options such as PDE-5 inhibitors, penile injections, muse, vacuum erection device (ADRIAN), shockwave therapy and penile implant (IPP). Discontinue Sildenafil. Trial of Tadalafil 10-20 mg timed around sexual activity. Educated on side effects such as vision/hearing changes, hypotension, facial flushing, headache, nasal congestion, GERD, and priapism. Voiding dysfunction - Emptying well per PVR bladder scan. Continue tamsulosin 0.8 mg daily. Limit excessive bladder irritant intake such as caffeine, alcohol and carbonation. Stop all fluid consumption 2-3 hours prior to bed. Trial of oxybutynin 5 mg daily. Monitor for dry eyes/mouth, urinary retention and cognitive status changes. [email or web address] Not available 04/28/2023 16:30:28 Reason for Referral None Reported. Problems Name Status Onset Date Resolution Date Notes Provider Name and Address Organization Details Recorded Time Type 2 diabetes mellitus Active 3 Guido lewis [facility] 04/28/2023 15:52:21 Problem Notes None recorded. Procedures Surgical History Date Name Laterality Status Provider Name and Address Organization Details Recorded Time 04/28/20 23 Bladder Scan completed Guido lewis [facility] 04/28/2023 16:20:06 05/06/20 17 Colonoscopy completed Guido lewis [facility] 04/28/2023 15:53:[address] gastr adj device completed Not Available Health Note 04/27/2023 16:20:27 Removal of sperm duct(s) completed Not Available Health Note 04/27/2023 16:20:27 Imaging Results None recorded. Procedure Notes None recorded. Medical Equipment None Reported. Allergies Allergen ID Allergen Name Allergen Category Reaction Reaction Severity Criticality Documentation Date Start Date Code Code System Note Provider Name and Address Organization Details Recorded Time [id number] Non-stero idal anti-infl ammatory agent (product) medicatio n Not available Not available Not available 04/28/2023 47560 005 SNOMED Guido lewis [facility] 3 15:52:43 Medications Name Sig Start Date Stop Date Status Note LastModified by Organization Details LastModified Time prednisone 5 mg tablet TAKE DIRECTED active Not Available Not Available No t Available metronidazo le 500 mg tablet active Not Available Not Available Not Available ciprofloxac in 500 mg tablet active Not Available Not Available Not Available tramadol 50 mg tablet 50mg 3/day active Not Available Not Available No t Available oxycodone-a cetaminophe n 5 mg-325 mg tablet TAKE 1 TO 2 TABLETS BY MOUTH EVERY 4 TO 6 HOURS NEEDED FOR PAIN 04/28 completed Not Available Not Available Not Available tamsulosin 0.4 mg capsule 0.4mg 2/day active Not Available Not Available No t Available imiquimod 5 % topical cream packet active Not Available Not Available Not Available cephalexin 500 mg capsule TAKE 1 CAPSULE BY MOUTH THREE TIMES DAILY FOR 7 DAYS active Not Available Not Available No t Available hyoscyamine 0.125 mg sublingual tablet active Not Available Not Available Not Available oxybutynin chloride ER 5 mg tablet,exte nded release 24 hr TAKE 1 TABLET BY MOUTH EVERY DAY active Not Available Not Available No t Available gabapentin 300 mg capsule active Not Available Not Available Not Available azelastine 137 mcg (0.1 %) nasal spray aerosol USE 2 SPRAYS IN EACH NOSTRIL TWICE DAILY active Not Available Not Available No t Available fluticasone propionate 50 mcg/actuati on nasal spray,suspe nsion SHAKE LIQUID AND USE 2 SPRAYS IN EACH NOSTRIL EVERY DAY active Not Available Not Available No t Available tadalafil 10 mg tablet TAKE 1-2 TABLETS BY MOUTH NEEDED TIME AROUND SEXUAL ACTIVITY active Not Available Not Available No t Available vitamin B12 0.5 mg-folic acid 1 mg tablet 1000iu 3x wk active Not Available Not Available No t Available Vitamin D3 1000iu 1/day active Not Available Not Available No t Available gabapentin 300 3/day 04/28 completed Not Available Not Available Not Available multivitami n MULTIVITA MIN 1/day active Not Available Not Available No t Available calcium carbonate 195 mg calcium (500 mg) chewable tablet 500mg 2/day active Not Available Not Available No t Available Paxlovid 300 mg (150 mg x 2)-100 mg tablets in a dose pack TK 2 NIRMATREL VIR TS AND 1 RITONAVIR T TOGETHER PO BID FOR 5 DAYS active Not Available Not Available No t Available Vitals Date Recorded Body mass index (BMI) Body weight Body height Provider Name and Address Organization Details Last Updated DateTime 04/28/2023 38.7 kg/m2 293765.8875 63655 g 182.88 cm Not Available Health Note 04/28/2023 15:22:46 Social History Question Answer Notes LastModified by Organizat ion Details LastModified Time Tobacco Smoking Status Former Smoker Not Available Health Note 04/27/2023 16:20:28 What Is Your Level Of Alcohol Consumption? Occasional Information not available 04/28/2023 What Is Your Level Of Caffeine Consumption? Heavy [email or web address] Information not available 04/27/2023 How Much Tobacco Do You Chew? 5+/day [email or web address] Information not available 04/27/2023 Do You Or Have You Ever Used E-cigarettes Or Vape? Former User Of Electronic Cigarettes [email or web address] Information not available 04/27/2023 When Did You Quit Smoking? 6-10yearssince lastcigarette Information not available 04/28/2023 What Was The Date Of Your Most Recent Tobacco Screening? 04/28/2023 [email or web address] Information not available 04/27/2023 Have You Ever Been Counseled For Unhealthy Alcohol Use? Yes Information not available 04/28/2023 What Is Your Relationship Status? [email or web address] Information not available 04/27/2023 Are You Sexually Active? Yes [email or web address] Information not available 04/27/2023 Do You Or Have You Ever Used Smokeless Tobacco? Currently Uses Moist Powdered Tobacco [email or web address] Information not available 04/27/2023 Do You Use Any Illicit Or Recreational Drugs? No [email or web address] Information not available 04/27/2023 Has Tobacco Cessation Counseling Been Provided? Yes Information not available 04/28/2023 On What Date Was Tobacco Cessation Counseling Provided? 04/28/2023 Information not available 04/28/2023 How Many Years Have You Smoked Tobacco? 36 [email or web address] Information not available 04/27/2023 Do You Or Have You Ever Used Any Other Forms Of Tobacco Or Nicotine? No Information not available 04/28/2023 How Many Days In The Past Year Have You Consumed 5 Or More Drinks? 10 [email or web address] Information no t available 04/27/2023 Sex: Male Functional Status None recorded. Mental Status None recorded. Family History Relationship Description Onset Age of this Age Resolved Age Notes Father Family history of diabetes mellitus Paternal Grandmother Family history of diabetes mellitus Mother Family history of cancer Maternal Grandfather Family history of cancer Paternal Grandfather Family history of cancer Medical History Condition Response Sexually Transmitted Infection Y Diabetes Y Bleeding Disorder N High Blood Pressure N Kidney Stones N Cancer N Depression N Lung Disease N High Cholesterol N GERD/Acid Reflux N Heart Disease N Immunizations Vaccine Type Date Status Provider Name and Address Organization Details Recorded Time influenza, unspecified formulation 04/07/2023 completed Guido lewis [facility] 04/28/2023 15:38:04 Pneumococcal [facility] 15:38:04 SARS-COV-2 (COVID-19) vaccine, UNSPECIFIED 04/07/2023 completed Guido lewis [facility] 04/28/2023 15:38:04 influenza, injectable, quadrivalent 05/24/2014 completed Guido lewis [facility] 04/28/2023 15:38:04 influenza, injectable, quadrivalent 05/27/2018 completed Gudio lewis [facility] 04/28/2023 15:38:04 influenza, injectable, quadrivalent 05/28/2016 completed Guido lewis [facility] 04/28/2023 15:38:04 influenza, injectable, quadrivalent 05/29/2015 completed Guido lewis [facility] 04/28/2023 15:38:04 Influenza, injectable, MDCK, preservative free, quadrivalent 04/07/2023 completed Guido lewis [facility] 04/28/2023 15:38:04 Influenza, injectable, MDCK, preservative free, quadrivalent 04/14/2022 completed Guido lewis [facility] 04/28/2023 15:38:04 zoster recombinant 07/29/2019 [facility] 15:38:04 zoster recombinant 10/14/2019 [facility] 15:38:04 COVID-19, mRNA, LNP-S, PF, 100 mcg/0.5mL dose or 50 mcg/0.25mL dose 10/03/2020 [facility] 15:38:04 COVID-19, mRNA, LNP-S, PF, 100 mcg/0.5mL dose or 50 mcg/0.25mL dose 11/01/2020 completed Guido lewis, [facility] 04/28/2023 15:38:04 COVID-19, mRNA, LNP-S, PF, 100 mcg/0.5mL dose or 50 mcg/0.25mL dose 11[facility]20/2021 [facility] 15:38:04 COVID-19, mRNA, LNP-S, PF, 100 mcg/0.5mL dose or 50 mcg/0.25mL dose 05/20/2021 [facility] 15:38:04 Pneumococcal conjugate PCV20, polysaccharide [id number] conjugate, adjuvant, PF 07/30/2022 [facility] 15:38:04 COVID-19, mRNA, LNP-S, bivalent, PF, 30 mcg/0.3 mL dose 04/14/2022 [facility] 15:38:04 pneumococcal polysaccharide PPV23 10/02/2011 [facility] 15:38:04 influenza, unspecified formulation [facility]20[facility] 15:38:04 influenza, unspecified formulation 04/19/2013 [facility] 15:38:04 influenza, unspecified formulation 04/19/2014 completed Guido Stalmakov null, [facility] 04/28/2023 15:38:04 influenza, unspecified formulation 04/19/2016 completed Guido Stalmakov null, [facility] 04/28/2023 15:38:04 Tdap 07/30/2021 [facility], [facility] 04/[facility] 15:38:04 Tdap 03/11/2012 [facility], [facility] 04/28/2023 15:38:04 Tdap 06/18/2007 completed Guido Stalmakov null, [facility] 04/28/2023 15:38:04 Novel Ffazizlao-[id number], all formulations 09/06/2009 completed Guido Stalmakov null, [facility] 04/28/2023 15:38:04 Novel Xphdqkgtm-[id number], all formulations 06/05/2009 completed [facility] 04/28/[facility]23 15:38:04 Influenza, seasonal, injectable 04/15/2010 completed Guido Stalmakov null, [facility] 04/28/2023 15:38:04 Influenza, seasonal, injectable 04/28/2012 completed Guido Stalmakov null, [facility] 04/28/2023 15:38:04 Influenza, seasonal, injectable, preservative free 06/05/2009 completed Guido Stalmakov null, [facility] 04/28/2023 15:38:04 Hep B, adult 08/27/2016 completed Guido Stalmakov null, [facility] 04/28/2023 15:38:04 Hep B, adult 10/13/2016 completed Guido Stalmakov null, [facility] 04/28/2023 15:38:04 Hep B, adult 04/13/2017 completed Guido Stalmakov null, [facility] 04/28/2023 15:38:04 influenza, injectable, quadrivalent, preservative free 04/04/2021 completed Guido Stalmakov null, [facility] 04/28/2023 15:38:04 influenza, injectable, quadrivalent, preservative free 04/05/2020 completed Guido Stalmakov null, [facility] 04/28/2023 15:38:04 influenza, injectable, quadrivalent, preservative free 04/13/2017 completed Guido lewis [facility] 04/28/2023 15:38:04 influenza, injectable, quadrivalent, preservative free 05/10/2019 completed Guido lewis [facility] 04/28/2023 15:38:04 Past Encounters Encounter ID Performer Location Encounter Start Date Encounter Closed Date Diagnosis/Indication [id number] [facility] [address] [address] 04/28/2023 15:18:44 04/28/2023 17:02:14 Induration penis plastica Primary erectile dysfunction Lower urinary tract symptoms due to benign prostatic hypertrophy Increased frequency of urination Health Concerns Section Related Observation LastModified by Organization Detai ls LastModified Time None Recorded Concern Status LastModified by Organization Details LastModified Time None Recorded Advance Directives Directive None Recorded Payers Encounter Date Sequence Insurance Name Policy Number Policy Kruger Covered Member ID Kruger Member ID Guarantor Name 04/28/2023 1 [facility] [id number] Choco Marvin [id number] Choco Marvin 04/28/2023 2 [facility] [id number] Choco Marvin [id number] Choco Marvin Notes Date Note Type Note Provider Name and Address Organization Details Recorded Time 04/28/2023 text/html HPI Notes: Peyronie's Disease Reported by patient. Notes: Patient presents for an evaluation of subtle rightward curvature. The curvature has been present for the past 6 months. No preceding event he can associate to the development of curvature. His curvature has remained stable for 4+ months. He reports penile narrowing with erections. No penile pain or shortening with erections. His partner is not bothered by the change in penile shape during sexual activity. He is able to achieve an ehs of 3-3.5 with adequate maintenance. He has used Sildenafil sparingly which is effective. He is interested in trial of a different medicaton for ED. Peyronie's Disease Bother Domain Questionnaire Question 1: 0 Question 2: 1 Question 3: 0 Question 4: 0 Total: 1 (0-16 severity) Voiding Dysfunction Reported by patient. Notes: Patient presents for an evaluation of urinary frequency and nocturia. He reports decline in his urinary function over the past 5-6 years. He was started on tamsulosin 0.4 mg daily for concerns of BPH. Minimal improvement in urinary function noted so he was increased to 0.8 mg daily. Further improvement (minimal) noted with increased dosage. He tends to void every 2 hours. Minimal issues with urinary urgency. He is waking up 3x a night to void. Denies dysuria, gross hematuria, urinary incontinence, abdominal pain and sensation of incomplete bladder emptying with voids. PATRICK AGUILAR, [facility] [address] [place] [address],[address], [place], [address], [facility] 04/28/2023 16:30:50
--- OUTSIDE RECORDS SUMMARY | 2023-08-16 00:46 | XMS_ITS | Encounter Summary ---
Author Name Unknown Organization [facility] Address [address] [place] [address] Care Team Providers Care Washcloth Folder Name Role Phone Trell Akins MD Primary Care Provider [phone] Reason for Referral * (Routine) - New Request Specialty Diagnoses / Procedures Referred By Contac t Referred To Contact Diagnoses Greater trochanteric bursitis of right hip Procedures Triamcinolone Acet Inj Nos: (per 10 mg) Luis Enrique Pearce PA-C [address] [place] [address] Referral ID Status Reason Start Date Expiration Date V isits Requested Visits Authorized [id number] New Request 12/07/2022 03/07/2024 1 1 Reason for Visit * Reason Comments HIP PAIN Encounter Details Date Type Department Care Team Description 11/28/2022 2:10 PM CDT Office Visit [facility] [address] [place] [address] Luis Enrique Pearce PA-C [address] [place] [id number] Greater trochanteric bursitis of right hip (Primary Dx) Social History Tobacco Use Types Packs/Day Years Used Date Smoking Tobacco: Former Cigarettes 1 20 0 08/18/1986 - 08/18/2006 Comments:chew tobacco Alcohol Use Standard Drinks/Week Comments No 0 (1 standard drink = 0.6 oz pur e alcohol) Sex and Gender Information Value Date Recorded Sex Assigned at Not on file Gender Identity Not on file Sexual Orientation Not on file documented as of this encounter Patient Instructions * Patient Instructions* Bernice Bryant MA - 11/28/2022 2:10 PM CDT Thank you for Choosing [facility] for your health care visit today. Luis Enrique Pearce PA-C Sports Medicine and General Orthopedics Medication Requests: Prescriptions are not filled on weekends or on weekdays after 3:00 PM. For all medication refills: Request a refill using BlackbookHRt or contact your pharmacy. What is Know Your Cost? Know Your Cost is a service for patients and patient/members to call and receive personalized cost information and estimates across our care group. The phone number is (COST) Thursday - Thursday 8 AM to 5 PM Advanced Imaging Scheduling: To schedule an MRI, Ultrasound, or Image guided injection at [facility] please call [phone]. To schedule an MRI or CT at a [facility] please call [phone]. [facility] Workers' Compensation [address] [place] [address] (Phone) Email: [email or web address] Release of Information: Radiology/Imaging [address] [place] [address] (Phone) Health Information Management [address] [place] [address] (Phone) MYOS documented in this encounter Progress Notes * Luis Enrique Pearce PA-C - 11/28/2022 2:10 PM CDT Choco Marvin [id number] 1965 [facility] Follow-Up 11/28/2022 Chief Complaint: Right hip pain. History of Present Illness: Choco Marvin is a 57 y.o. male who presents for reexamination of the right hip, last seen by me on 07/29/2022. At that time, he was diagnosed with greater trochanteric bursitis of the right hipand low back pain. He received a trochanteric bursa injection at that time with good relief. He notes his pain returned about 6 weeks ago, denies injury or trauma. Please refer to my note dated 07/29/2022 for past medical history. Review of Systems: Positive for right hip pain. No history of other heart, lung, liver, GI, or renal diseases, cancers, diabetes mellitus, or arthritis. Physical Exam: General: The patient is in no acute distress. Neuro: Answers questions appropriately. Alert and oriented x 3. Right Hip: Tenderness to palpation over the greater trochanter. Full ROM of the hip. All tendons are intact. Imaging: Deferred. Assessment: Diagnosis and Associated Orders ICD-10-CM 1. Greater trochanteric bursitis of right hip M70.61 Plan: I discussed with the patient, in detail, the different treatment options available to them including conservative management (rest, ice, oral pain medication, and activity modification), physical therapy, and the risks and benefits of cortisone injection. At this time, he elects to undergo a cortisone injection to the right trochanteric bursa. He will follow-up with me as needed. All questions answered. Procedure: Right Trochanteric Bursa Injection Risks, alternatives, and potential benefits were discussed, and the patient consents to proceed. Using aseptic technique and betadine prep, the patient underwent a right trochanteric bursa injection at the point of maximum tenderness with a combination of 6cc 1% plain Lidocaine and 40mg triamcinolone using a 22-gauge needle. The patient noted immediate relief and no complications were noted. Scribe Disclosure: Cassandra Billings, am serving as a scribe to document services personally performed by Luis Enrique Pearce PA-C at this visit, based upon the provider's statements to me. All documentation has been reviewed by the aforementioned provider prior to being entered into the official medical record. Portions of this medical record were completed by a scribe. UPON MY REVIEW AND AUTHENTICATION BY ELECTRONIC SIGNATURE, this confirms (a) I performed the applicable clinical services, and (b) the record is accurate. Luis Enrique Pearce PA-C documented in this encounter Plan of Treatment Not on file documented as of this encounter Visit Diagnoses Diagnosis Greater trochanteric bursitis of right hip- Primary Enthesopathy of hip region documented in this encounter Care Teams Washcloth Folder Relationship Specialty Start Date End Date Trell Akins MD [address] [place] [address] PCP - General Family Practice 06/27/16 documented as of this encounter
--- OUTSIDE RECORDS SUMMARY | 2023-08-16 00:46 | XMS_ITS | Clinical Summary ---
Author Name Unknown Organization [facility] Address [address] [place] [address] Care Team Providers Care Maintenance Tech Name Role Phone Trell Akins MD Primary Care Provider Source Comments You are receiving this document as you are listed as the primary care provider,follow-up provider, or the patient has been referred to you for consultation.This is in compliance with the Medicare and[facility] [employer] EHR Incentive Program,which states Providers who transition their patient to another setting of careor provider of care or refers their patient to another provider of care shouldprovide summary care record for each transition of care or referral. [facility] Allergies Active Allergy Reactions Criticality Noted Date Comments Penicillins 08/26/2006 Medications Medication Sig Dispensed Refills Start Date End Date Status Naproxen Sodium (ALEVE OR) Take as needed 0 Active valacyclovir (AKA VALTREX) 1000 MG tablet Reported on 08/25/2016 0 Active Cyanocobalamin (VITAMIN B-12) [address] under tongue. 0 Activ e traMADol (ULTRAM) 50 MG tablet 1-2 po QHS prn 0 01/30/2016 Active Active Problems Problem Noted Date Diagnosed Date Substance abuse 08/26/2006 Lumbago 12/24/2002 Overview: Pain Low Back Resolved Problems Problem Noted Date Diagnosed Date Resolved Date Substance abuse 08/26/2006 08/26/2006 Overview: Pt. States he quit using Crack Cocaine in . Immunizations Name Administration Dates Next Due Flu Vac (3+ yrs) 06/05/2009 [id number] 06/05/2009 Influenza, Unspecified Formulation 07/27/2002 Tdap 06/18/2007 Family History Medical History Relation Name Comments Alcohol/Drug Abuse Father Alcohol/Drug Abuse Mother Coronary Artery Disease Negative Family History Relation Name Status Comments Father Mother Social History Tobacco Use Types Packs/Day Years Used Date Smoking Tobacco: Former Cigarettes 1 20 0 08/18/1986 - 08/18/2006 Tobacco Cessation:Counseling Given: Not Answered Comments:chew tobacco Alcohol Use Standard Drinks/Week Comments No 0 (1 standard drink = 0.6 oz pur e alcohol) Sex and Gender Information Value Date Recorded Sex Assigned at Not on file Gender Identity Not on file Sexual Orientation Not on file Last Filed Vital Signs Vital Sign Reading Time Taken Comments Blood Pressure 118/77 10/04/2009 11:00 AM CDT Pulse 68 10/04/2009 11:00 AM CDT Temperature 36.7 ??C (98 ??F) 10/04/2009 11:00 AM CDT Respiratory Rate 18 10/04/2009 11:00 AM CDT Oxygen Saturation 95% 10/04/2009 11:00 AM CDT Inhaled Oxygen Concentration - - Weight 147.4 kg (325 lb) 07/29/2022 2:48 PM 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 Height 185.4 cm (6' 1) 07/29/2022 2:48 PM 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 Body Mass Index 42.88 07/29/2022 2:48 PM 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 Plan of Treatment Health Maintenance Due Date Last Done Comments Colon Cancer Screening Plan Due 1966 Hep C Screening (Preventive Services) 1966 HepB (1) 1966 COVID-19 Vaccine (#1) 02/18/1967 HIV Screening (Preventive Services) 1982 Adult Preventive Visit 08/26/2007 08/26/2006 Cholesterol 10/04/2014 10/04/2009, 10/18, 05/14/1998 Influenza (#1) 2023 04/14/2022, 03/20, 04/05/2020, Additional history exists PSA Screening Discussion 07/23/2023 07/23/2022, 12/18 DTaP/Tdap/Td (5 - Tdap) 07/30/2031 07/30/19, 03/11/2012, 07/20/2007, Additional history exists Zoster/Shingles Completed 10/14/2019, 07/29/2019 Pneumococcal Aged Out 07/30/2022, 10/02/2011 No lo nger eligible based on patient's age to complete this topic HepA Aged Out No longer eligi ble based on patient's age to complete this topic Hib Aged Out No longer eligi ble based on patient's age to complete this topic IPV (Polio) Aged Out No longer eligi ble based on patient's age to complete this topic MCV4 Aged Out No longer eligi ble based on patient's age to complete this topic Advance Directives Latest Code Status on File Code Status Date Activated Date Inactivated Comments Full Code 10/03/2009 6:10 PM 10/04/2009 3:47 PM Care Teams Maintenance Tech Relationship Specialty Start Date End Date Trell Akins MD [address] [place] [address] PCP - General Family Practice 06/27/16
--- OUTSIDE RECORDS SUMMARY | 2023-08-16 00:46 | XMS_ITS | Clinical Summary ---
Author Name Unknown Organization [facility] Address [place], [place] [address] Care Team Providers Care Material Yard Clerk Name Role Phone Trell Akins MD Primary Care Provider Maribel Jimenez MD Unavailable [phone] Allergies Active Allergy Reactions Criticality Noted Date Comments Blood-Group Specific Substance Other - Describe In Comment Field 06/15/2012 Patient has an anti-Big E antibody. Blood product orders may be delayed. Draw two purple top tubes and one red top tube for all Type and Screen/Type and Crossmatch orders. Nsaids (Non-Steroidal Anti-Inflammatory Drug) Other - Describe In Comment Field 06/08/2012 Patient had gastric bypass surgery. Should not take oral NSAID's ever. Penicillins Rash 08/26/2006 Medications Medication Sig Dispensed Refills Start Date End Date Status CALCIUM CITRATE/VITAMIN D3 (CALCIUM CITRATE + ORAL) Take 2,000 mg by mouth. Take 2,000mg in three divided doses 0 Active pediatric multivitamins-ir on 18 mg chewable (FLINTSTONES PLUS IRON; BUGS BUNNY PLUS IRON) chewable tablet Take 1 tablet by mouth 2 times daily. 180 tablet 4 4 Active blood-glucose meterIndications :Diabetes mellitus without complication (HC) Dispense contour meter. 1 Device 0 9 Active medication order composerIndicati ons:MAUDE (obstructive sleep apnea) 10/30/2020 AHI-18 HST 05/03/2021 AHI-11; diagnosis obstructive sleep apnea; MRD #1 1 unit 0 1 Active sildenafil citrate (VIAGRA) 50 mg tabletIndication s:Erectile dysfunction, unspecified erectile dysfunction type Take 1 Tablet (50 mg) by mouth once daily if needed for Erectile Dysfunction. Take 30min to 4 hours before sexual activity. Max 100mg/24hr 5 tablet. 10 1 Active naproxen (ALEVE) 220 mg tabletIndication s:Bilateral foot pain Take 1 Tablet (220 mg) by mouth every 12 hours if needed for Pain. 0 2 Active CPAPIndications: MAUDE (obstructive sleep apnea) CPAP machine for home use at pressure 4-15cmw, nasal mask x1/3month with nasal cushion x2/mo 1 Each 11 2 Active imiquimod 5% cream (ALDARA) 5 % creamIndications :HPV in male Apply at bedtime and leave on skin for 8 hours. Thursday, Thursday, Thursday for up 12 weeks. 24 Packet 0 3 Active cyanocobalamin (VITAMIN B12) 1,000 mcg tablet One tab oral every other day. 0 3 Active blood sugar diagnostic (Blood Glucose Test) stripIndications :Diabetes mellitus without complication (HC) Test 1 times per day as needed for hypoglycemia. 100 Each 3 3 Active traMADoL (ULTRAM) 50 mg tabletIndication s:Bilateral foot pain Take 1 Tablet (50 mg) by mouth 3 times daily if needed for Pain. 90 Tablet 0 4 Active metroNIDAZOLE (FLAGYL) 500 mg tabletIndication s:Diverticulitis Take 1 Tablet (500 mg) by mouth three times daily for 10 days. 30 Tablet 0 4 08/23/19 24 Active ciprofloxacin HCl (CIPRO) 500 mg tabletIndication s:Diverticulitis Take 1 Tablet (500 mg) by mouth two times daily for 10 days. 20 Tablet 0 4 08/23/19 24 Active gabapentin (NEURONTIN) 300 mg capsuleIndicatio ns:Bilateral foot pain Take 1 Capsule (300 mg) by mouth three times daily. 270 Capsule 3 4 Active tamsulosin (FLOMAX) 0.4 mg capsuleIndicatio ns:BPH without urinary obstruction Take 2 Capsules (0.8 mg) by mouth once daily after a meal. 180 Capsule 3 4 Active valACYclovir (VALTREX) 1 gram tabletIndication s:Rash TAKE 1 TABLET BY MOUTH TWICE DAILY NEEDED 30 Tablet 3 4 Active valACYclovir (VALTREX) 1 gram tabletIndication s:Rash TAKE 1 TABLET BY MOUTH TWICE DAILY NEEDED 30 Tablet 3 1 08/13/19 24 Discontinued(Reo rder (E-cancel not sent)) omeprazole 20 mg tabletIndication s:High risk medication use Take 1 Tablet (20 mg) by mouth once daily before a meal. 90 Tablet 3 2 08/13/19 24 Discontinued(*Me d complete/Regimen complete/Level of care change) fluticasone (50 mcg per actuation) nasal solution (FLONASE)Indicat ions:Allergic rhinitis due to pollen, unspecified seasonality Inhale 2 Sprays to both nostrils once daily. 16 g 12 2 08/13/19 24 Discontinued(*Me d complete/Regimen complete/Level of care change) methylPREDNISolo ne (Medrol, [place]asper,) 4 mg tabletIndication s:Foot pain, left Take by mouth as instructed per packaging. 21 Tablet 0 2 08/13/19 24 Discontinued(*Me d complete/Regimen complete/Level of care change) tamsulosin (FLOMAX) 0.4 mg capsuleIndicatio ns:BPH without urinary obstruction Take 2 Capsules (0.8 mg) by mouth once daily after a meal. 180 Capsule 3 3 08/13/19 24 Discontinued(Reo rder (E-cancel not sent)) gabapentin (NEURONTIN) 300 mg capsuleIndicatio ns:Bilateral foot pain Take 1 Capsule (300 mg) by mouth three times daily. 270 Capsule 3 3 08/13/19 24 Discontinued(Reo rder (E-cancel not sent)) hyoscyamine sublingual (LEVSIN SL) 0.125 mg sublIndications: Irritable bowel syndrome with diarrhea Place 1 Tablet (0.125 mg) under the tongue every 4 hours if needed (IBS). 60 Tablet 6 3 08/13/19 24 Discontinued(*Me d complete/Regimen complete/Level of care change) traMADoL (ULTRAM) 50 mg tabletIndication s:Bilateral foot pain Take 1 Tablet (50 mg) by mouth 3 times daily if needed for Pain. 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 S ees Protein Chemist (Russ) at [facility] Rheum 01/30/2016 01/24/2021 Heel pain 03/05/2009 07/29/2019 Acute prostatitis 03/05/2009 01/27/2023 Encounters Date Type Department Care Team Description 08/13/2023 3:45 PM AWAKE OVERNIGHT MONITOR Office Visit [facility] [place] [address] [place] [address] Trell Akins MD Physical (57 year old) 08/13/2023 Travel 08/06/2023 8:00 AM AWAKE OVERNIGHT MONITOR Orders Only [facility] [address] [place] [address] Lab 08/06/2023 Travel 07/31/2023 Refill [facility] [place] [address] [place] [address] Trell Akins MD Refill Request (Tramadol) 07/01/2023 Refill [facility] [address] [place] [address] Trell Akins MD Refill Request (Tramadol) 06/01/2023 Refill [facility] [place] [address] [place] [address] Trell Akins MD Refill Request (Tramadol) 05/28/2023 Orders Only [facility] Scanner 1 scan: (1-Ord) [facility], MR LUMBAR SPINE WO CON, 05/28/2023 from Last 3 Months Immunizations Name Administration Dates Next Due AMB Influenza, IIV4 PF (=>6 mos Flulaval,Fluzone Fluarix)(Flu Clinic Only) 04/05/2020,05/10/2019 COVID-19 vaccine (Moderna 100mcg/0.5mL) PF, MDV 04/07/2023,10/03/2020 Hepatitis B (Adult) 04/13/2017,10/13/2016,2016 Influenza A (H1N1), Inactivated 09/06/2009,06/05 Influenza A (H1N1), Inactiva joshua (Age >=3 Years) 09/06/2009 Influenza Virus, Unspecified 04/07/2023, 04/19/2016,07/20/2014,2013,04/19/2013,05/05/2012,06/05/2009,0 07/27/2002 Influenza, IIV3 (Age 6-35 mos) 06/05/2009 Influenza, IIV3 (Age >=3 years) 04/28/20 12,04/15/2010,06/19/2009,2007 Influenza, IIV4 04/04/2021,04/13/2017 Influenza, IIV4 (=>6mos) MDV 05/27/2018, 05/28/2016,05/29/2015,2013 Influenza,CCIIV4 PRESERV FREE 04/07/2023, 022 Pneumococcal Conj 20-valent (Prevnar 20) 07/30/2022 Pneumococcal Poly,23-Valent (Pneumovax) 10/02/2011 Pneumococcal conj 13-Valent (Prevnar 13) 08/08/2022 Td (Age >=7 Years) 07/20/2007 Tdap 07/30/2021,03/11/2012,06/18/2007 Zoster (Shingrix-RZV, recombinant) 10/14/2019, Family History Medical History Relation Name Comments Asthma Brother Diabetes Brother on insulin Other Brother brother with co merari polyps at age 41 Alcohol/Drug Father sober for 20 yr s, also many uncles with alcoholism Diabetes Father on insulin Cancer Mother lung/ in remiss ion Other Mother lung cancer, wa s a smoker Diabetes Paternal Grandfather Stroke Paternal Grandmother Other Sister brother with co merari polyps Anesthesia Problem No Family History Cancer-colon No Family History Cancer-prostate No Family History Heart Disease No Family History Relation Name Status Comments Brother Father Alive Mother Alive Paternal Grandfather Paternal Grandmother Sister Social History Tobacco Use Types Packs/Day Years Used Date Smoking Tobacco: Former Cigarettes 0.3 20 Smokeless Tobacco: Current Chew Tobacco Cessation:Ready to Q uit: Yes; Counseling Given: No Comments:on Chantix-no cigs in 10 days 12-13-13 Alcohol Use Standard Drinks/Week Comments Yes 0 (1 standard drink = 0.6 oz pur e alcohol) rare since surgery PHQ-2 Answer Date Recorded PHQ-2 TOTAL SCORE 0 08/13/2023 Social Connections Answer Date Recorded Frequency of Communication with Friends and Fami ly Not on file 07/31/2023 Financial Resource Strain Answer Date R ecorded Difficulty of Paying Living Expenses 3 07/30/2022 Difficulty of Paying Living Expenses Not on file 07/30/2022 Food Insecurity Answer Date Recorded Worried About Running Out of Food in the Last Ye ar 1 07/30/2022 Transportation Needs Answer Date Record ed Lack of Transportation (Medical) 1 07/30/2022 Housing Stability Answer Date Recorded Unable to Pay for Housing in the Last Year 1 07/30/2022 Sex and Gender Information Value Date Recorded Sex Assigned at Male 05/17/2020 10:21 PM CDT Gender Identity Male 05/17/2020 10:21 PM CDT Sexual Orientation Straight 05/17/2020 10 :21 PM CDT Obstetrics History Last Filed Vital Signs Vital Sign Reading Time Taken Comments Blood Pressure 147/87 08/13/2023 3:44 PM AWAKE OVERNIGHT MONITOR Pulse 64 08/13/2023 3:44 PM AWAKE OVERNIGHT MONITOR Temperature 36.7 ??C (98 ??F) 08/08/2021 9:14 AM AWAKE OVERNIGHT MONITOR Respiratory Rate 12 10/26/2017 11:0 3 AM CDT Oxygen Saturation 98% 08/13/2023 3:44 PM AWAKE OVERNIGHT MONITOR Inhaled Oxygen Concentration - - Weight 135.5 kg (298 lb 12.8 oz) 08/13/2023 3:44 PM AWAKE OVERNIGHT MONITOR Height 182.6 cm (5' 11.89) 08/13/2023 3:[address] Body Mass Index 40.65 08/13/2023 3:44 PM AWAKE OVERNIGHT MONITOR Plan of Treatment Upcoming Encounters Date Type Department Care Team (Late st Contact Info) Description 02/11/2024 3:45 PM CDT Office Visit [facility] [place] [address] [place] [address] Trell Akins MD [address] [place] [address] Health Maintenance Due Date Last Done Comments COVID-19 vaccine series (2022- season) 2023 04/07/2023, 04/14/2022, 11/20/2021, Additional history exists BMI (ht and wt on same day) for age 18+ 08/13/2024 08/13/2023, 01/27/2023, 01/27/2023, Additional history exists Depression screening for age 12+ 08/13/2024 08/13/2023, 08/01/2022, 07/30/2022, Additional history exists Colonoscopy through age 75 09/24/2026 09/24/2016, Lipids for age 45-75 08/06/2028 08/06/2023, 07/23/2022, 07/19/2021, Additional history exists Tetanus booster 07/30/2031 07/30/2021, 02/18, 07/20/2007, Additional history exists Hepatitis C screening for ag e 18-79 Completed 09/25/2015 Hepatitis B series for Diabetes Completed 04/13/2017, 10/13/2016, 08/27/2016 Zoster (shingles) series for age 50+ Completed 10/14/2019, 07/29/2019 Tdap Completed 07/30/2021, 02/18, 06/18/2007 Pneumococcal series for age 6-64 Completed 08/08/2022, 07/30/2022, 10/02/2011 HIV for age 15-65 Completed 01/26/2023, 07/23/2022 Influenza for age 50-64 Completed 04/07/20 23, 04/07/2023, 04/14/2022, Additional history exists Medical Devices Implanted Type Area Switchboard Troubleshooter Device Identifier Shelf Expiration Date Model / Serial / Lot [id number] Implanted:Qty: [address] on 06/15/[address] [facility] Explanted:at [facility] (Quantity not on file) Stomach [employer] WING 02/17/2014 [id number] / [id number] / Description:ALLODERM 2X12 Procedures Procedure Name Priority Date/Time Associated Diagnosis Comments VITAMIN B12 Routine 08/13/2023 4:26 PM AWAKE OVERNIGHT MONITOR Vitamin B12 deficiency URINE ALBUMIN TO CREATININE RATIO, RANDOM Routine 08/06/2023 8:42 AM AWAKE OVERNIGHT MONITOR Type II or unspecified type diabetes mellitus without mention of complication, not stated as uncontrolled BASIC METABOLIC PANEL Routine 08/06/2023 8:05 AM AWAKE OVERNIGHT MONITOR Type II or unspecified type diabetes mellitus without mention of complication, not stated as uncontrolled LIPID PANEL W REFLEX MEASURED LDL Routine 08/06/2023 8:05 AM AWAKE OVERNIGHT MONITOR Type II or unspecified type diabetes mellitus without mention of complication, not stated as uncontrolled HEMOGLOBIN A1C Routine 08/06/2023 8:05 AM AWAKE OVERNIGHT MONITOR Type II or unspecified type diabetes mellitus without mention of complication, not stated as uncontrolled SCAN-MRI INTERPRETATION 05/28/2023 12:00 AM AWAKE OVERNIGHT MONITOR from Last 3 Months Results * (ABNORMAL) VITAMIN B12 (08/13/2023 4:26 PM AWAKE OVERNIGHT MONITOR) VITAMIN B12 1,523(H) 232 - 1,245 pg/mL 08/14/2023 3:58 PM AWAKE OVERNIGHT MONITOR [facility] Blood BLOOD SPECIMEN / Unknown Venipuncture / Unknown 08/13/2023 4:26 PM AWAKE OVERNIGHT MONITOR 08/13/2023 4:27 PM AWAKE OVERNIGHT MONITOR Narrative [facility] - 08/14/2023 3:58 PM AWAKE OVERNIGHT MONITOR Biotin supplements may cause clinically significant interference for this test assay. ??If interference is suspected, it is strongly recommended that biotin is discontinued for at least one week prior to retesting. Trell Akins MD CHEMISTRY Performing Organization Address [facility] Co de Phone Number [facility] [address] [place] [address], * URINE ALBUMIN TO CREATININE RATIO, RANDOM (08/06/2023 8:42 AM AWAKE OVERNIGHT MONITOR) ALB RAND URINE <12.0 mg/L 08/06/2023 6:38 PM AWAKE OVERNIGHT MONITOR [facility] CREATININE,URINE 0.99 g/L 08/06/19 24 6:38 PM AWAKE OVERNIGHT MONITOR [facility] ALBUMIN TO CREATININE RATIO,RAND UR 08/06/2023 6:38 PM AWAKE OVERNIGHT MONITOR [facility] Comment:Urine Albumin below measurement range, unable to calculate. Urine URINE SPECIMEN / Unknown Non-Blood / Unknown 08/06/2023 8:42 AM AWAKE OVERNIGHT MONITOR 08/06/2023 8:43 AM AWAKE OVERNIGHT MONITOR Narrative [facility] - 08/06/2023 6:38 PM AWAKE OVERNIGHT MONITOR If Albumin to Creatinine Ratio is elevated, consider the following: ? Elevations seen with incipient nephropathy associated ?? with diabetes mellitus or hypertension. Stress, exercise,hematuria, ?? and urinary tract infection may also produce elevated results. If clinically indicated, confirm with ?24 Hour Albumin to Creatinine Ratio. ?? Trell Akins MD URINE Performing Organization Address [facility] Co de Phone Number [facility] [address] [place] [address], * LIPID PANEL W REFLEX MEASURED LDL (08/06/2023 8:05 AM AWAKE OVERNIGHT MONITOR) CHOLESTEROL,TOTAL 153 100 - 199 mg/dL 08/06/2023 2:17 PM AWAKE OVERNIGHT MONITOR [facility] Comment: Cholesterol, Total Reference Ranges Desirable <200 mg/dL Borderline 200-239 mg/dL High >=240 mg/dL TRIGLYCERIDES 96 <150 mg/dL 08/06/2023 2:17 PM AWAKE OVERNIGHT MONITOR [facility] HDL CHOLESTEROL 46 >40 mg/dL 2:17 PM AWAKE OVERNIGHT MONITOR [facility] NON-HDL CHOLESTEROL 107 <145 mg/dl 08/06/2023 2:17 PM AWAKE OVERNIGHT MONITOR [facility] CHOL/HDL RATIO 3.33 <4.50 08/06/2023 2:17 PM AWAKE OVERNIGHT MONITOR [facility] LDL CHOLESTEROL 88 <=130 mg/dL 08/06/2023 2:17 PM [facility] VLDL CHOLESTEROL 19 <=30 mg/dL 08/06/2023 2:17 PM AWAKE OVERNIGHT MONITOR [facility] PROVIDER ORDERED STATUS RANDOM 08/06/2023 2:17 PM AWAKE OVERNIGHT MONITOR [facility] Blood BLOOD SPECIMEN / Unknown Venipuncture / Unknown 08/06/2023 8:05 AM AWAKE OVERNIGHT MONITOR 08/06/2023 8:05 AM AWAKE OVERNIGHT MONITOR Trell Akins MD CHEMISTRY [facility] [address] [place] [address], * HEMOGLOBIN A1C MONITORING (POCT) (08/06/2023 8:05 AM AWAKE OVERNIGHT MONITOR) HEMOGLOBIN A1C MONITORING (POCT) 5.7 <=6.4 % 08/06/2023 8:37 AM AWAKE OVERNIGHT MONITOR [facility] Blood BLOOD SPECIMEN / Unknown Venipuncture / Unknown 08/06/2023 8:05 AM AWAKE OVERNIGHT MONITOR 08/06/2023 8:05 AM AWAKE OVERNIGHT MONITOR Narrative [facility] - 08/06/2023 8:37 AM AWAKE OVERNIGHT MONITOR ? (<=6.9%) ? Indicates good control ? (7.0% to 7.9%) ? Indicates fair control ? (>=8.0%) ? Indicates poor control ?? NOTE: ??These thresholds are guidelines and ?individual targets may vary. Falsely low levels may be seen with: Recent Transfusion, Recent Significant Blood Loss, Hemolytic Diseases, or Falsely elevated levels may be seen with: Untreated Anemias, Splenectomy ? Trell Akins MD CHEMISTRY [facility] [address] [place] [address] * (ABNORMAL) BASIC METABOLIC PANEL (08/06/2023 8:05 AM AWAKE OVERNIGHT MONITOR) Pathologist [facility] SODIUM 140 136 - 145 mmol/L 08/06/2023 2:17 PM [facility] POTASSIUM 4.3 3.5 - 5.1 mmol/L 08/06/2023 2:17 PM [facility] CHLORIDE 101 98 - 107 mmol/L 08/06/2023 2:17 PM [facility] CO2,TOTAL 28 22 - 29 mmol/L 08/06/2023 2:17 PM [facility] ANION GAP 11 5 - 18 08/06/2023 2:17 PM [facility] GLUCOSE 131(H) 70 - 99 mg/dL 08/06/2023 2:17 PM [facility] CALCIUM 9.6 8.6 - 10.0 mg/dL 08/06/2023 2:17 PM [facility] BUN 17 6 - 20 mg/dL 08/06/2023 2:17 PM [facility] CREATININE 1.11 0.70 - 1.20 mg/dL 08/06/2023 2:17 PM [facility] BUN/CREAT RATIO 15 10 - 20 2:17 PM [facility] eGFR 78(L) >90 mL/min/1.7 3m2 08/06/2023 2:17 PM [facility] Comment:As of 2021, eG FR is calculated by the CKD-EPI creatinine equation without race adjustment. ??eGFR can be influenced by muscle mass, exercise, and diet. ??The reported eGFR is an estimation only and is only applicable if the renal function is stable. Blood BLOOD SPECIMEN / Unknown Venipuncture / Unknown 08/06/2023 8:05 AM AWAKE OVERNIGHT MONITOR 08/06/2023 8:05 AM AWAKE OVERNIGHT MONITOR Trell Akins MD CHEMISTRY [facility] [address] [place] [address], * SCAN-MRI INTERPRETATION (05/28/2023 12:00 AM AWAKE OVERNIGHT MONITOR) Anatomical Region Laterality Modality Other Scanner OTHER from Last 3 Months Advance Directives Latest Code Status on File Code Status Date Activated Date Inactivated Comments Full Code 06/15/2012 9:21 AM 06/16/2012 2:41 PM Care Teams Material Yard Clerk Relationship Specialty Start Date End Date Trell Akins MD [address] [place] [address] PCP - General Family Practice 09/20/12 Maribel Jimenez MD [address] [facility] [address] [place] [address] Rheumatology Rheumatology 10/06/16
--- OUTSIDE RECORDS SUMMARY | 2023-08-16 00:46 | XMS_ITS | Encounter Summary ---
Author Name Unknown Organization [facility] Address [address] [place] [address] Care Team Providers Care Lime Slaker Name Role Phone Trell Akins MD Primary Care Provider Reason for Visit * Reason Comments Questions Encounter Details Date Type Department Care Team Description 04/08/2023 Telephone [facility] [address] [place] [address] [id number] Nisa Fraire MD [address] [place], [place] [address], [place] [address] Questions Social History Tobacco Use Types Packs/Day Years [...] on file documented as of this encounter Nursing Notes * Roxana Asher RN - 04/09/2023 1:22 PM CDT Called patient and he is seeing [facility] for pain. He no longer wishes to consult with Dr. Fraire. Advised him to call [facility]'s mainline if he wishes to see her in the future. * Nisa Fraire MD - 04/09/2023 12:46 PM CDT Yes please go ahead and schedule him. Thank you. * Gabriela Whitehead - 04/08/2023 10:21 AM CDT GENERAL QUESTIONS How may we help you today? Patient requesting call back. Please advise. Describe your symptoms/concerns: Patient is calling in to schedule appointment with Dr. Fraire. Patient has issues with both feet, mainly the left one foot. Patient has had surgery for plantar fascitis on the left foot in 2011. Patient believes he may have neuropathy. Patient is looking for pain management options and is wondering if this is something Dr. Fraire can see him for? When did the issue start: NA Have you been seen for this recently?: No If we are unable to reach you can we leave a detailed message on your voicemail? Yes If we are unable to reach you can we send you a message in [employer]? No [Traffic Administrator/Client Services Director: Relay to patient; We make every effort to get back to you sameday, however it may take 1-2 business days depending on the nature of the communication.] documented in this encounter Plan of Treatment Not on file documented as of this encounter Visit Diagnoses Not on filedocumented in this encounter Care Teams Lime Slaker Relationship Specialty Start Date End Date Trell Akins MD [address] [place] [address] PCP - General Family Practice 06/27/16 documented as of this encounter
[2023-08-16 00:47] LABS: Appearance Urine Clear (Clear); Bilirubin Urine Negative (Negative); Blood Urine Negative (Negative); Color Urine Yellow (Yellow); Glucose Urine Negative (Negative); Ketones Urine Negative (Negative); Leukocyte Esterase Urine Negative (Negative); Nitrite Urine Negative (Negative); Protein Urine Negative (Negative); Urobilinogen Urine 0.2 (0.2-1.0); pH Urine 6.5 (5.0-8.5)
[2023-08-16 00:55] LABS: Basophils Absolute Auto 0.07 K/uL (0.00-0.30); Basophils Percent Auto 0.8 % (0.0-3.0); Eosinophils Absolute Auto 0.13 K/uL (0.00-0.50); Eosinophils Percent Auto 1.5 % (0.0-7.0); Hematocrit 42.6 % (37.0-53.0); Hemoglobin* 13.9 gm/dL (13.5-17.5); Immature Granulocytes Abs Auto 0.01 K/uL (0.00-0.30); Immature Granulocytes Pct Auto 0.1 %; Lymphocytes Percent Auto 16.4 % (20-44); Mean Corpuscular HGB Conc 33 gm/dL (32-36); Mean Corpuscular Hemoglobin 31 pg (26-34); Mean Corpuscular Volume 95 fL (80-100); Monocytes Percent Auto 10.7 % (0.0-11.0); Neutrophils Absolute Auto 5.95 K/uL (1.7-7.0); Neutrophils Percent Auto 70.5 % (42.0-72.0); Platelet Count* 231 K/uL (140-440); RDW Coefficient of Variation % 12.6 % (11.5-15.5); Red Blood Count 4.47 m/uL (4.30-5.90); White Blood Count* 8.44 K/uL (4.50-11.00)
[2023-08-16 00:56] LABS: Slide Review Reflex No
[2023-08-16 01:11] LABS: Albumin* 4.3 g/dL (3.3-5.0); Chloride* 105 mmol/L (96-114); Potassium* 3.9 mmol/L (3.6-5.1); Sodium* 139 mmol/L (135-149)
[2023-08-16 01:13] LABS: Amylase* 82 U/L (18-89); Anion Gap 8 mEq/L (7-15); Carbon Dioxide* 26 mmol/L (20-32); Creatinine* 0.9 mg/dL (0.5-1.5); Est. Creatinine Clearance* 103.57; Estimated Glomerular Filt Rate 100 ml/min
[2023-08-16 01:14] LABS: Alanine Aminotransferase* 21 U/L (4-50); Alkaline Phosphatase* 60 U/L (40-150); Aspartate Amino Transferase* 25 U/L (12-35); Bilirubin Total* 1.1 mg/dL (0.1-1.5); Blood Urea Nitrogen* 13 mg/dL (7-30); Glucose* 129 mg/dL (60-115); Total Protein* 7.1 g/dL (6.0-8.3)
--- NOTE | 2023-08-16 02:10 | ED_ITS ---
HPI - Abdominal Pain General Chief Complaint: Abdominal Pain Stated Complaint: diverticulitis, left side abdominal pain Time Seen by Provider: 08/16/23 00:25 History of Present Illness HPI narrative: Patient is a 57-year-old gentleman who was seen by his primary doctor several days ago and was diagnosed clinically with diverticulitis and placed on oral Cipro and Flagyl. His symptoms have worsened with worsening abdominal pain in the left lower quadrant and mid abdomen. He has not been eating or drinking much in feel somewhat dehydrated. He has had no fevers no chills no dysuria. He has had no diarrhea. He has had no chest pain shortness a breath orthopnea or PND. He has been compliant with his medication but feels like he is getting sicker. Related Data Home Medications Medication Instructions Recorded Confirmed acetaminophen 500 mg tablet 500 mg PO Q6H PRN 01/12/23 08/16/23 (Tylenol Extra Strength) gabapentin 300 mg capsule 300 mg PO TID 01/12/23 08/16/23 naproxen sodium 220 mg capsule 220 mg PO BID PRN 01/12/23 08/16/23 (Aleve) tamsulosin 0.4 mg capsule 0.8 mg PO DAILY 01/12/23 08/16/23 tramadol 50 mg tablet 50 mg PO 3XD PRN 01/12/23 08/16/23 calcium citrate 315 mg-vitamin D3 1 tab PO TID 02/13/23 08/16/23 5 mcg (200 unit) tablet omeprazole 20 mg capsule,delayed 20 mg PO DAILY 02/13/23 08/16/23 release sildenafil 50 mg tablet 50 mg PO PRN PRN 02/13/23 08/16/23 valacyclovir 1 gram tablet 1,000 mg PO BID PRN 02/13/23 08/16/23 (Valtrex) ciprofloxacin HCl 500 mg tablet 500 mg PO BID 08/16/23 08/16/23 metronidazole 500 mg tablet 500 mg PO 3XD 08/16/23 08/16/23 Allergies Allergy/AdvReac Type Severity Reaction Status Date / Time Penicillins Allergy Unknown Verified 08/16/23 00:24 NSAIDS (Non-Steroidal AdvReac Verified 08/16/23 00:24 Anti-Inflamma Blood group specific Allergy Uncoded 05/13/23 14:33 Substance Review of Systems Status of ROS Reports: 10 or more systems reviewed and unremarkable except as noted in History and below [facility] Medical History Hx of pilonidal cyst ?Z87.2 - Personal history of diseases of the skin and subcutaneous tissue (ICD-10) Type 2 diabetes mellitus ?E11.9 - Type 2 diabetes mellitus without complications (ICD-10) Pulmonary nodule ?R91.1 - Solitary pulmonary nodule (ICD-10) Neuropathy ?G62.9 - Polyneuropathy, unspecified (ICD-10) Anxiety state, unspecified ?F41.1 - Generalized anxiety disorder (ICD-10) Diverticulitis ?K57.92 - Diverticulitis of intestine, part unspecified, without perforation or abscess without bleeding (ICD-10) Plantar fasciitis of left foot (~2011) ?M72.2 - Plantar fascial fibromatosis (ICD-10) Medial epicondylitis, right elbow (~11/2017) ?M77.01 - Medial epicondylitis, right elbow (ICD-10) Lateral epicondylitis, right elbow (~11/2017) ?M77.11 - Lateral epicondylitis, right elbow (ICD-10) Bilateral shoulder bursitis ?M75.51 - Bursitis of right shoulder (ICD-10) ?M75.52 - Bursitis of left shoulder (ICD-10) Surgical History History of medial meniscus repair of right knee (02/17/23) ?Z98.890 - Other specified postprocedural states (ICD-10) Hx of vasectomy ?Z98.52 - Vasectomy status (ICD-10) History of bariatric surgery ?Z98.84 - Bariatric surgery status (ICD-10) History of arthroscopy of left knee (10/25/20) ?Z98.890 - Other specified postprocedural states (ICD-10) Family History Mother Lung cancer Diabetes Heart disease Father Diabetes Heart disease Other Aneurysm Bleeding disorder Social History Smoking Status: Former smoker Do you use any of these nicotine containing products: None and Smokeless Tobacco Second hand tobacco smoke exposure: Yes How often do you have a drink containing alcohol: monthly or less How many standard drinks containing alcohol do you have on a typical day: 1 or 2 How often do you have six or more drinks on one occasion: Never AUDIT-C Alcohol total score: 1 Non-prescribed substance use: denies use Caffeine: Yes (8c/day) service: No Exam Narrative: Exam Narrative: EXAM GENERAL: Patient appears comfortable and well. EYES: No scleral icterus. ENT: Tympanic membranes and oropharynx normal. THYROID: no thyroid nodules or thyromegaly. LYMPH: No supraclavicular or cervical lymphadenopathy. SKIN: Visible skin seen during exam normal or with benign process only. EXT: No dependent lower extremity pedal edema. HEART: Regular rate and rhythm with no murmurs, rubs, or gallops. LUNGS: Clear to auscultation bilaterally with no crackles or wheezes. ABD: Minimally tender throughout with the exception of his with a tenderness in the left lower quadrant. Hypoactive bowel sounds. PSYCH: Good eye contact, speech is not pressured. Const: Vital Signs, click to edit/add: Vital Signs - 24 hr 08/16/23 00:18 08/16/23 00:46 08/16/23 01:00 Temperature 97.8 F Pulse Rate 59 L 59 L Pulse Rate [Pulse Oximeter] 62 Respiratory Rate 18 Blood Pressure Blood Pressure [Ri ght Upper Arm] 136/76 Pulse Oximetry 96 95 96 Oxygen Delivery Me thod Room Air Room Air Room Air 08/16/23 01:26 Temperature Pulse Rate Pulse Rate [Pulse Oximeter] Respiratory Rate Blood Pressure 131/77 Blood Pressure [Ri ght Upper Arm] Pulse Oximetry Oxygen Delivery Me thod Course Vital Signs Vital signs: Initial Vital Signs Temperature 97.8 F 08/16/23 00:18 Temperature Source Temporal Artery Scan 08/16/23 00:18 Pulse Rate 62 08/16/23 00:18 Respiratory Rate 18 08/16/23 00:18 Blood Pressure 136/76 08/16/23 00:18 Blood Pressure Mean 96 08/16/23 00:18 Blood Pressure Position Supine 08/16/23 00:18 Pulse Oximetry 96 08/16/23 00:18 Oxygen Delivery Method Room Air 08/16/23 00:18 Vital Signs Temperature 97.8 F 08/16/23 00:18 Pulse Rate 62 08/16/23 00:18 Respiratory Rate 18 08/16/23 00:18 Blood Pressure 136/76 08/16/23 00:18 Pulse Oximetry 96 08/16/23 00:18 Oxygen Delivery Method Room Air 08/16/23 00:18 Temperature 97.8 F 08/16/23 00:18 Pulse Rate 59 L 08/16/23 01:00 Respiratory Rate 18 08/16/23 00:18 Blood Pressure 131/77 08/16/23 01:26 Pulse Oximetry 96 08/16/23 01:00 Oxygen Delivery Method Room Air 08/16/23 01:00 Medications Administered Medications: Discontinued Medications Generic Name Dose Route Start Last Admin Trade Name Freq PRN Reason Stop Dose Admin Sodium Chloride 1,000 mls @ 1,000 mls/hr 08/16/23 00:28 08/16/23 01:37 0.9 % Sodium Chloride 1000 Ml IV 08/16/23 01:27 Infused .Q1H WILLIAM Infusion MDM - Abdominal Pain MDM Narrative Medical decision making narrative: Patient is a 57-year-old gentleman who has normal labs normal vital signs and significant tenderness on abdominal exam who presents with acute diverticulitis on CT. He is on day 3 of his oral Cipro and Flagyl with lack of progress and actual worsening of his symptoms. This time we did discuss hospitalization I do think it is in his best interest to come in for IV antibiotics and IV fluids with admission to observation at this time. Care transferred to hospitalist. Differential Diagnosis Differential diagnosis: Likely abdominal pain, acute appendicitis, calculus of kidney, constipation, diverticulitis, gastroenteritis, pancreatitis and small bowel obstruction Lab Data Labs: Lab Results 08/16/23 08/16/23 Range/Units 00:20 00:40 WBC 8.44 (4.50-11.00) K/uL RBC 4.47 (4.30-5.90) m/uL Hgb 13.9 (13.5-17.5) gm/dL Hct 42.6 (37.0-53.0) % MCV 95 (80-100) fL MCH 31 (26-34) pg MCHC 33 (32-36) gm/dL RDW Coeff of Mariia 12.6 (11.5-15.5) % Plt Count 231 (140-440) K/uL Neut % (Auto) 70.5 (42.0-72.0) % Lymph % (Auto) 16.4 L (20-44) % [place] % (Auto) 10.7 (0.0-11.0) % Eos % (Auto) 1.5 (0.0-7.0) % Baso % (Auto) 0.8 (0.0-3.0) % Neut # (Auto) 5.95 (1.7-7.0) K/uL Lymph # (Auto) 1.40 (0.90-2.90) K/uL [place] # (Auto) 0.90 (0.00-0.90) K/UL Eos # (Auto) 0.13 (0.00-0.50) K/uL Baso # (Auto) 0.07 (0.00-0.30) K/uL Abs Immat Gran (auto) 0.01 (0.00-0.30) K/uL Imm/Tot Granulo (auto) 0.1 % Sodium 139 (135-149) mmol/L Potassium 3.9 (3.6-5.1) mmol/L Chloride 105 (96-114) mmol/L Carbon Dioxide 26 (20-32) mmol/L Anion Gap 8 (7-15) mEq/L BUN 13 (7-30) mg/dL Creatinine 0.9 (0.5-1.5) mg/dL Estimated Creat Clear 103.57 Estimated GFR 100 ml/min Glucose 129 H (60-115) mg/dL Calcium 9.0 (8.4-10.6) mg/dL Total Bilirubin 1.1 (0.1-1.5) mg/dL AST 25 (12-35) U/L ALT 21 (4-50) U/L Alkaline Phosphatase 60 (40-150) U/L Total Protein 7.1 (6.0-8.3) g/dL Albumin 4.3 (3.3-5.0) g/dL Amylase 82 (18-89) U/L Urine Color Yellow (Yellow) Urine Appearance Clear (Clear) Urine pH 6.5 (5.0-8.5) Ur Specific [place] 1.010 (1.000-1.030) Urine Protein Negative (Negative) Urine Glucose (UA) Negative (Negative) Urine Ketones Negative (Negative) Urine Blood Negative (Negative) Urine Nitrite Negative (Negative) Urine Bilirubin Negative (Negative) Urine Urobilinogen 0.2 (0.2-1.0) Ur Leukocyte Esterase Negative (Negative) Discharge Plan Discharge Clinical Impression: Diverticulitis Patient Disposition: Admitted As Observation Condition: Stable Activity Level: No Restrictions Discharge Diet: Other Prescriptions: No Action tramadol 50 mg tablet 50 mg PO 3XD PRN gabapentin 300 mg capsule 300 mg PO TID tamsulosin 0.4 mg capsule 0.8 mg PO DAILY acetaminophen [Tylenol Extra Strength] 500 mg tablet 500 mg PO Q6H PRN naproxen sodium [Aleve] 220 mg capsule 220 mg PO BID PRN calcium citrate-vitamin D3 315 mg-5 mcg (200 unit) tablet 1 tab PO TID omeprazole 20 mg capsule,delayed release(DR/EC) 20 mg PO DAILY sildenafil 50 mg tablet 50 mg PO PRN PRN valacyclovir [Valtrex] 1 gram tablet 1,000 mg PO BID PRN metronidazole 500 mg tablet 500 mg PO 3XD ciprofloxacin HCl 500 mg tablet 500 mg PO BID Follow Up/Referrals: Trell Akins MD [Primary Care Provider] -
--- NOTE | 2023-08-16 02:21 | W.PM.TELEH&P ---
Telehealth- H&P: HPI History of Present Illness Date Seen: 08/16/23 Chief complaint: diverticulitis, left side abdominal pain Narrative: Choco Marvin is seen as an Interactive Telehealth visit. Choco Marvin is a 57 year old male who is relatively healthy at baseline who presents to the emergency department with left-sided abdominal pain. Patient was seen by his primary care physician approximately 2 to 3 days ago and diagnosed with diverticulitis. He has had bouts of diverticulitis in the past, and they have improved with PO antibiotics. He was prescribed ciprofloxacin and Flagyl this time, however this has failed to provide improvement for the current episode. He denies any fevers, but does endorse chills. He also complains of some nausea and constipation. He comes to the ER today with persistent symptoms. Workup however was rather unremarkable. Patient does not have leukocytosis. Patient is afebrile, no signs of sepsis. CT scan of the abdomen and pelvis acutely in the emergency department reveals uncomplicated mid descending colonic diverticulitis. Patient is being admitted for failure of outpatient treatment. Review of Systems Status of ROS: Reports: 10 or more systems reviewed and unremarkable except as noted in History and below [facility] Medical History Hx of pilonidal cyst ?Z87.2 - Personal history of diseases of the skin and subcutaneous tissue (ICD-10) Type 2 diabetes mellitus ?E11.9 - Type 2 diabetes mellitus without complications (ICD-10) Pulmonary nodule ?R91.1 - Solitary pulmonary nodule (ICD-10) Neuropathy ?G62.9 - Polyneuropathy, unspecified (ICD-10) Anxiety state, unspecified ?F41.1 - Generalized anxiety disorder (ICD-10) Diverticulitis ?K57.92 - Diverticulitis of intestine, part unspecified, without perforation or abscess without bleeding (ICD-10) Plantar fasciitis of left foot (~2011) ?M72.2 - Plantar fascial fibromatosis (ICD-10) Medial epicondylitis, right elbow (~11/2017) ?M77.01 - Medial epicondylitis, right elbow (ICD-10) Lateral epicondylitis, right elbow (~11/2017) ?M77.11 - Lateral epicondylitis, right elbow (ICD-10) Bilateral shoulder bursitis ?M75.51 - Bursitis of right shoulder (ICD-10) ?M75.52 - Bursitis of left shoulder (ICD-10) Surgical History History of medial meniscus repair of right knee (02/17/23) ?Z98.890 - Other specified postprocedural states (ICD-10) Hx of vasectomy ?Z98.52 - Vasectomy status (ICD-10) History of bariatric surgery ?Z98.84 - Bariatric surgery status (ICD-10) History of arthroscopy of left knee (10/25/20) ?Z98.890 - Other specified postprocedural states (ICD-10) Family History Mother Lung cancer Diabetes Heart disease Father Diabetes Heart disease Other Aneurysm Bleeding disorder Social History Smoking Status: Former smoker Do you use any of these nicotine containing products: None and Smokeless Tobacco Second hand tobacco smoke exposure: Yes How often do you have a drink containing alcohol: monthly or less How many standard drinks containing alcohol do you have on a typical day: 1 or 2 How often do you have six or more drinks on one occasion: Never AUDIT-C Alcohol total score: 1 Non-prescribed substance use: denies use Caffeine: Yes (8c/day) service: No Meds Home Medications and Allergies Home Medications Medication Instructions Recorded Confirmed Type acetaminophen 500 mg tablet 500 mg PO Q6H PRN 01/12/23 08/16/23 History (Tylenol Extra Strength) gabapentin 300 mg capsule 300 mg PO TID 01/12/23 08/16/23 History naproxen sodium 220 mg capsule 220 mg PO BID PRN 01/12/23 08/16/23 History (Aleve) tamsulosin 0.4 mg capsule 0.8 mg PO DAILY 01/12/23 08/16/23 History tramadol 50 mg tablet 50 mg PO 3XD PRN 01/12/23 08/16/23 History calcium citrate 315 mg-vitamin D3 1 tab PO TID 02/13/23 08/16/23 History 5 mcg (200 unit) tablet omeprazole 20 mg capsule,delayed 20 mg PO DAILY 02/13/23 08/16/23 History release sildenafil 50 mg tablet 50 mg PO PRN PRN 02/13/23 08/16/23 History valacyclovir 1 gram tablet 1,000 mg PO BID PRN 02/13/23 08/16/23 History (Valtrex) ciprofloxacin HCl 500 mg tablet 500 mg PO BID 08/16/23 08/16/23 History metronidazole 500 mg tablet 500 mg PO 3XD 08/16/23 08/16/23 History Allergies Allergy/AdvReac Type Severity Reaction Status Date / Time Penicillins Allergy Unknown Verified 08/16/23 00:24 NSAIDS (Non-Steroidal AdvReac Verified 08/16/23 00:24 Anti-Inflamma Blood group specific Allergy Uncoded 05/13/23 14:33 Substance Exam Narrative Exam Narrative: Physical Exam GENERAL: ?vital signs reviewed, well developed and nourished, in no distress HEENT: pupils are equal round and reactive to light, extraocular movements are grossly within normal limits and oral mucosa is moist. NECK: Supple without lymphadenopathy or thyromegaly according to nursing staff examination observation HEART: Regular rate and rhythm without any rubs, murmurs, or gallops. LUNGS: Clear to auscultation bilaterally with good air movement throughout ABDOMEN: Observation from nurse assisted exam, abdomen tender with palpation on left compared to right, soft, no distention. EXTREMITIES: Strength and sensation is observed to be grossly within normal limits in the upper and lower extremities.? No focal strength deficit is observed. SKIN:? Observed warm and dry with color normal Const Vital Signs, click to edit/add: Vital Signs - 24 hr 08/16/23 00:18 08/16/23 00:46 08/16/23 01:00 Temperature 97.8 F Pulse Rate 59 L 59 L Pulse Rate [Pulse Oximeter] 62 Respiratory Rate 18 Blood Pressure Blood Pressure [Right Upper Arm] 136/76 Pulse Oximetry 96 95 96 Oxygen Delivery Method Room Air Room Air Room Air 08/16/23 01:26 Temperature Pulse Rate Pulse Rate [Pulse Oximeter] Respiratory Rate Blood Pressure 131/77 Blood Pressure [Right Upper Arm] Pulse Oximetry Oxygen Delivery Method Hospitalist - H&P: Result Labs Labs: Short CBC 08/16/23 Range/Units 00:40 WBC 8.44 (4.50-11.00) K/uL Hgb 13.9 (13.5-17.5) gm/dL Hct 42.6 (37.0-53.0) % Plt Count 231 (140-440) K/uL BMP 08/16/23 00:40 Sodium 139 Potassium 3.9 Chloride 105 Carbon Dioxide 26 BUN 13 Creatinine 0.9 Glucose 129 H Calcium 9.0 Liver Function 08/16/23 Range/Units 00:40 Total Bilirubin 1.1 (0.1-1.5) mg/dL AST 25 (12-35) U/L ALT 21 (4-50) U/L Alkaline Phosphatase 60 (40-150) U/L Albumin 4.3 (3.3-5.0) g/dL Urine 08/16/23 Range/Units 00:20 Urine Color Yellow (Yellow) Urine Appearance Clear (Clear) Urine pH 6.5 (5.0-8.5) Ur Specific [place] 1.010 (1.000-1.030) Urine Protein Negative (Negative) Urine Glucose (UA) Negative (Negative) Assessment and Plan Assessment and plan (1) Diverticulitis: Status: Acute Assessment and Plan: Presumed failure of Ciprofloxacin and Flagyl, we will give the patient a trial of IV Ceftriaxone and Flagyl (patient has a PCN allergy). Diet as tolerated. Monitor for signs of sepsis. Telehealth: Statement Statement Telehealth Visit: Today's History and Physical is provided via interactive telehealth by Ramon King MD.? Patient is located at [facility].? Provider is located at [facility].? Nursing staff assisted with the patient's exam. The visit being done today meets criteria for a telehealth visit and the patient or patient?s parent/guardian is aware the visit is a telehealth visit.
--- NOTE | 2023-08-16 02:40 | PC.NURSE ---
report given to ronnie BARBOSA RN
--- NOTE | 2023-08-16 02:48 | PC.NURSE ---
patient admitted to room 259 all belongings sent with patient
[2023-08-16] MEDS: ACETAMINOPHEN 500 MG TABLET PO ×2 (04:07→12:39)
[2023-08-16] MEDS: cefTRIAXone 2 GM in 0.9 % SODIUM CHLORIDE Mini-bag 100 ML IVPB (04:08)
[2023-08-16] MEDS: 0.9 % SODIUM CHLORIDE 250 ml IV (04:09)
[2023-08-16] MEDS: polyethylene glycoL 3350 17 GM PACK PO (04:17)
[2023-08-16] MEDS: metroNIDAZOLE 500 MG/100 ML PIGGYBACK 100 MG IVPB ×3 (05:16→20:46)
[2023-08-16 06:39] LABS: Lactate* 0.7 mmol/L (0.5-1.9)
--- NOTE | 2023-08-16 07:15 | PC.NURSE ---
End of shift [id number] ? Pt arrived to floor from ED at approximately 0250. Pt alert, oriented, cooperative. Independent in room, tolerating RA and regular fluids. Pt reported pain in LLQ as 6/10 that increased with movement. Pt given intervention per SEP, pt behavior indicated relief. Pt reported concerns related to constipation to RN and MD. Medication given per SEP. Pt observed to sleep during shift, appears to be resting comfortably at the end of shift.
[2023-08-16] MEDS: TAMSULOSIN HCL 0.4 MG CAPSULE 0.8 MG PO (09:51)
[2023-08-16] MEDS: GABAPENTIN 300 MG CAPSULE PO ×3 (09:51→20:46)
[2023-08-16] MEDS: OMEPRAZOLE 20 MG CAPSULE DR PO (09:54)
[2023-08-16] MEDS: SODIUM CHLORIDE 0.9 % (FLUSH) 10 ML SYRINGE 5 ML IVF ×3 (09:55→20:47)
[2023-08-16] MEDS: ACETAMINOPHEN 500 MG TABLET 1000 MG PO ×2 (13:00→22:05)
--- NOTE | 2023-08-16 15:08 | P.IMPN_ITS ---
Progress Note: A&P Assessment and plan (1) Diverticulitis: Problem details: -failed outpatient therapy, ciprofloxacin and Flagyl -continue IV ceftriaxone and Flagyl -ADAT -consider General surgery consult if new or worsening symptoms or no resolve Status: Acute (2) Chronic pain: Problem details: -continue home medications Status: Chronic Plan Likely discharge 08/17/2023 on oral antibiotics pending continued clinical improvement Time Spent With Patient Total time spent: Total time spent caring for the patient today was 45 minutes. This includes time spent for the visit reviewing the chart, time spent during the visit, time spent after the visit and documentation and planning in coordination of care. Subjective Date Seen: 08/16/23 Interval history: Patient reports feeling much better this morning. Had a moderate-sized bowel movement which seemed to help his pain. Denies dark or bloody stools. Nausea has resolved. Has not had any vomiting (nor has he vomited in 14 years). Denies headache or dizziness. Denies chest pain or shortness of breath. He reports this is his 3rd episode of diverticulitis, the previous 2 managed with oral antibiotics. Exam Narrative: Exam Narrative: PHYSICAL EXAM General: Pleasant, conversant, NAD HEENT: Normocephalic, atraumatic, sclera white, EOMI, oral mucosa moist Cardiovascular: RRR, S1S2. No pitting edema Pulmonary: CTA bilaterally without rhonchi, rales, expiratory wheezes. No dyspnea Abdominal: Soft, nondistended, NTTP, no guarding Neurological: Alert, answering questions appropriately, cranial nerves intact, no focal findings Extremities: No gross joint deformity or swelling. AROMI. Neurovascularly intact Skin: Warm, dry. Const: Vital Signs, click to edit/add: Vital Signs - 24 hr 08/16/23 00:18 08/16/23 00:46 08/16/23 01:00 Temperature 97.8 F Pulse Rate 59 L 59 L Pulse Rate [Pulse Oximeter] 62 Respiratory Rate 18 Blood Pressure Blood Pressure [Le ft Arm] Blood Pressure [Ri ght Upper Arm] 136/76 Pulse Oximetry 96 95 96 Oxygen Delivery Me thod Room Air Room Air Room Air 08/16/23 01:26 08/16/23 04:39 08/16/23 04:39 Temperature 97.4 F L Pulse Rate Pulse Rate [Pulse Oximeter] 57 L Respiratory Rate 16 16 Blood Pressure 131/77 Blood Pressure [Le ft Arm] 113/74 Blood Pressure [Ri ght Upper Arm] Pulse Oximetry 97 97 Oxygen Delivery Me thod Room Air Room Air 08/16/23 07:00 08/16/23 07:00 08/16/23 11:00 Temperature 97.9 F 98.1 F Pulse Rate Pulse Rate [Pulse Oximeter] 59 L 59 L 59 L Respiratory Rate 18 18 18 Blood Pressure Blood Pressure [Le ft Arm] 123/77 137/91 H Blood Pressure [Ri ght Upper Arm] Pulse Oximetry 96 96 Oxygen Delivery Me thod Room Air Room Air Labs Labs: Laboratory Results - last 24 hr 08/16/23 08/16/23 08/16/23 00:20 00:40 06:17 WBC 8.44 RBC 4.47 Hgb 13.9 Hct 42.6 MCV 95 MCH 31 MCHC 33 RDW Coeff of Mariia 12.6 Plt Count 231 Neut % (Auto) 70.5 Lymph % (Auto) 16.4 L [place] % (Auto) 10.7 Eos % (Auto) 1.5 Baso % (Auto) 0.8 Neut # (Auto) 5.95 Lymph # (Auto) 1.40 [place] # (Auto) 0.90 Eos # (Auto) 0.13 Baso # (Auto) 0.07 Abs Immat Gran (auto) 0.01 Imm/Tot Granulo (auto) 0.1 Sodium 139 Potassium 3.9 Chloride 105 Carbon Dioxide 26 Anion Gap 8 BUN 13 Creatinine 0.9 Estimated Creat Clear 103.57 Estimated GFR 100 Glucose 129 H Lactate 0.7 Calcium 9.0 Total Bilirubin 1.1 AST 25 ALT 21 Alkaline Phosphatase 60 Total Protein 7.1 Albumin 4.3 Amylase 82 Urine Color Yellow Urine Appearance Clear Urine pH 6.5 Ur Specific [place] 1.010 Urine Protein Negative Urine Glucose (UA) Negative Urine Ketones Negative Urine Blood Negative Urine Nitrite Negative Urine Bilirubin Negative Urine Urobilinogen 0.2 Ur Leukocyte Esterase Negative
--- NOTE | 2023-08-16 19:42 | PC.NURSE ---
Shift Note: Pt c/o intermittent 3-5/10 abdominal pain and declines Oxy at this time. Pt states discomfort is being well managed with Tylenol. Moves well independently and had a medium formed BM this afternoon. IV abx ongoing.
[2023-08-17 04:00] VITALS: BP 106/70; PULSE 50; RESP 16; TEMP 36.7; O2SAT 96
[2023-08-17] MEDS: cefTRIAXone 2 GM in 0.9 % SODIUM CHLORIDE Mini-bag 100 ML IVPB (04:01)
[2023-08-17] MEDS: 0.9 % SODIUM CHLORIDE 250 ml IV (04:02)
[2023-08-17] MEDS: metroNIDAZOLE 500 MG/100 ML PIGGYBACK 100 MG IVPB (04:44)
[2023-08-17 06:36] LABS: Basophils Absolute Auto 0.06 K/uL (0.00-0.30); Basophils Percent Auto 0.9 % (0.0-3.0); Eosinophils Percent Auto 3.1 % (0.0-7.0); Hemoglobin* 13.8 gm/dL (13.5-17.5); Immature Granulocytes Abs Auto 0.01 K/uL (0.00-0.30); Immature Granulocytes Pct Auto 0.2 %; Lymphocytes Absolute Auto 1.35 K/uL (0.90-2.90); Lymphocytes Percent Auto 20.6 % (20-44); Mean Corpuscular HGB Conc 33 gm/dL (32-36); Mean Corpuscular Hemoglobin 32 pg (26-34); Mean Corpuscular Volume 96 fL (80-100); Monocytes Percent Auto 10.4 % (0.0-11.0); Neutrophils Absolute Auto 4.25 K/uL (1.7-7.0); Neutrophils Percent Auto 64.8 % (42.0-72.0); Platelet Count* 231 K/uL (140-440); RDW Coefficient of Variation % 12.8 % (11.5-15.5); Red Blood Count 4.38 m/uL (4.30-5.90); White Blood Count* 6.55 K/uL (4.50-11.00)
[2023-08-17 06:48] LABS: Slide Review Reflex No
[2023-08-17 06:53] LABS: Chloride* 106 mmol/L (96-114); Potassium* 4.3 mmol/L (3.6-5.1); Sodium* 142 mmol/L (135-149)
[2023-08-17 06:56] LABS: Anion Gap 9 mEq/L (7-15); Carbon Dioxide* 27 mmol/L (20-32); Creatinine* 0.8 mg/dL (0.5-1.5); Est. Creatinine Clearance* 116.52; Estimated Glomerular Filt Rate 104 ml/min
[2023-08-17 06:57] LABS: Blood Urea Nitrogen* 12 mg/dL (7-30); Calcium* 8.8 mg/dL (8.4-10.6); Glucose* 125 mg/dL (60-115)
[2023-08-17 08:00] VITALS: BP 120/79; PULSE 51; RESP 16; RESP 18; TEMP 36.6; O2SAT 97
[2023-08-17] MEDS: OMEPRAZOLE 20 MG CAPSULE DR PO (08:27)
[2023-08-17] MEDS: GABAPENTIN 300 MG CAPSULE PO (08:28)
[2023-08-17] MEDS: TAMSULOSIN HCL 0.4 MG CAPSULE 0.8 MG PO (08:28)
--- NOTE | 2023-08-17 10:20 | PM.DS1 ---
DS: Providers Provider Date Seen: 08/17/23 Date of admission: 08/16/23 02:43 Primary care physician: Trell Akins MD Admitting Clinician: Ramon King MD Attending Physician on discharge: Yoana Craven [facility] Date of Discharge: 08/17/23 DS: Diagnosis Discharge Diagnosis (1) Diverticulitis: Status: Acute Problem details: Patient admitted, with 3rd episode of diverticulitis, after failed outpatient therapy with oral ciprofloxacin and Flagyl. Started on IV ceftriaxone and Flagyl. Had several bowel movements which improved pain. Tolerated advancing diet. Discharged to home to complete initial outpatient antibiotics with Cipro and Flagyl. (2) Chronic pain: Status: Chronic Problem details: Continued on home medications DS: Summary Hospital Course Hospital Course: [age] year old male past medical history significant for chronic pain, previous diverticulitis was admitted to the medical floor for further management failed outpatient therapy of 3rd bout of diverticulitis. Course of care and details as noted above. Remainder of chronic medical comorbidities were monitored and managed with home medications. Status at Discharge Overall status at discharge: patient is back to baseline Time Spent with Patient Time attestation: Total time spent providing and/or coordinating discharge services: Time spent: Greater than 30 minutes Exam Narrative: Exam Narrative: PHYSICAL EXAM General: Pleasant, conversant, NAD Cardiovascular: RRR Pulmonary: No dyspnea Neurological: Alert, answering questions appropriately Skin: Warm, dry. Const: Vital Signs, click to edit/add: Vital Signs - 24 hr 08/16/23 11:00 08/16/23 15:00 08/16/23 15:00 Temperature 98.1 F 97.8 F Pulse Rate [Pulse Oximeter] 59 L 70 70 Respiratory Rate 18 18 18 Blood Pressure [Le ft Arm] 137/91 H 115/70 Pulse Oximetry 96 98 Oxygen Delivery Me thod Room Air Room Air 08/16/23 20:30 08/16/23 20:30 08/16/23 22:00 Temperature 98.3 F 97.7 F Pulse Rate [Pulse Oximeter] 63 63 64 Respiratory Rate 16 16 18 Blood Pressure [Le ft Arm] 133/82 127/76 Pulse Oximetry 96 96 Oxygen Delivery Me thod Room Air Room Air 08/17/23 04:00 Temperature 98.0 F Pulse Rate [Pulse Oximeter] 50 L Respiratory Rate 16 Blood Pressure [Le ft Arm] 106/70 Pulse Oximetry 96 Oxygen Delivery Me thod Room Air DS: Data Data Completed and Pending Labs on day of discharge: Labs from last 24 hours 08/17/23 05:28 WBC 6.55 RBC 4.38 Hgb 13.8 Hct 42.0 MCV 96 MCH 32 MCHC 33 RDW Coeff of Mariia 12.8 Plt Count 231 Neut % (Auto) 64.8 Lymph % (Auto) 20.6 [place] % (Auto) 10.4 Eos % (Auto) 3.1 Baso % (Auto) 0.9 Neut # (Auto) 4.25 Lymph # (Auto) 1.35 [place] # (Auto) 0.70 Eos # (Auto) 0.20 Baso # (Auto) 0.06 Abs Immat Gran (auto) 0.01 Imm/Tot Granulo (auto) 0.2 Sodium 142 Potassium 4.3 Chloride 106 Carbon Dioxide 27 Anion Gap 9 BUN 12 Creatinine 0.8 Estimated Creat Clear 116.52 Estimated GFR 104 Glucose 125 H Calcium 8.8 Discharge Plan Discharge Disposition: Home, Self-Care Date of Admission: 08/16/23 02:43 Attending Provider on Discharge: Yoana Craven Primary Care Provider: Trell Akins Condition: Stable Anticipated Discharge Date/Time: 08/17/23 10:04 Discharge Medications: Continued tramadol 50 mg tablet 50 mg PO 3XD PRN gabapentin 300 mg capsule 300 mg PO TID tamsulosin 0.4 mg capsule 0.8 mg PO DAILY acetaminophen [Tylenol Extra Strength] 500 mg tablet 500 mg PO Q6H PRN naproxen sodium [Aleve] 220 mg capsule 220 mg PO BID omeprazole 20 mg capsule,delayed release(DR/EC) 20 mg PO DAILY valacyclovir [Valtrex] 1 gram tablet 1,000 mg PO BID PRN metronidazole 500 mg tablet 500 mg PO 3XD ciprofloxacin HCl 500 mg tablet 500 mg PO BID calcium carbonate 600 mg calcium (1,500 mg) tablet 600 mg PO DAILY cholecalciferol (vitamin D3) [D3-2000] 50 mcg (2,000 unit) capsule 50 mcg PO DAILY cyanocobalamin (vitamin B-12) 1,000 mcg tablet 1,000 mcg PO DAILY Flintstones Tab Chew 100 mcg tablet,chewable 1 tab PO DAILY tadalafil 10 mg tablet 10 - 20 mg PO PRN Discharge Orders: Discharge Order (Routine); Ordered 08/17/23 Ordered By: Yoana Craven Patient Education: Diverticulitis (GEN) Additional Instructions: Continue taking your oral antibiotics that you received prior to admission to the hospital, completing all of it. Activity Level: No Restrictions Discharge Diet: Regular and Other Follow Up Appointments: Trell Akins MD [Primary Care Provider] - 08/28/23 8:25 am ([facility] for Follow-up appointment. ) Forms: [employer] Info Instructions
--- NOTE | 2023-08-17 13:35 | PC.NURSE ---
BOWEL SOUNDS ACTIVE AND PATIENT PASSING GAS. HAD BM THIS AM. TOLERATING REGULAR DIET WITH NO C/O N/V. PATIENT DENIED PAIN. SALINE LOCK DC'D. REVIEWED DC INSTRUCTIONS WITH PATIENT AND HE DENIED QUESTIONS OR CONCERNS. PATIENT DC'D HOME WITH .
== END 2023-08-17 11:28 | disposition home or self-care (01) ==
LOC: ED 02:16 → MEDSURG 02:44
PROVIDERS: Physician Assistant; Admitting Provider Internal Medicine; Emergency Provider Internal Medicine; PCP Family Medicine; Visit Provider Internal Medicine
DX: K57.92 Diverticulitis of intestine, part unspecified, without perforation or abscess without bleeding (principal); G89.29 Other chronic pain; R10.32 Left lower quadrant pain; K59.00 Constipation, unspecified; R11.0 Nausea; K21.9 Gastro-esophageal reflux disease without esophagitis; Z98.52 Vasectomy status; Z98.84 Bariatric surgery status; Z87.2 Personal history of diseases of the skin and subcutaneous tissue; Z87.891 Personal history of nicotine dependence; Z98.890 Other specified postprocedural states
CPT/HCPCS: 36415; 74177; 80048; 80053; 81003; 82150; 83605; 85025; 93005; 96361; 96365; 96366; 96367; 96375; 99283; 99284; 99285; A9270; G0378; J0696; J1836; J7030; J7050; Q9967

== ENCOUNTER 2024-04-06 01:44 | Outpatient (CLI) | payer OTHER, SELFPAY ==
--- OUTSIDE RECORDS SUMMARY | 2024-04-09 08:37 | XMS_ITS | Clinical Summary ---
Author Organization [facility] Address [address] [place] [address] Care Team Providers Care Financial Aids Officer Name Role Phone Trell Akins MD Primary Care Provider Source Comments You are receiving this document as you are listed as the primary care provider,follow-up provider, or the patient has been referred to you for consultation.This is in compliance with the Medicare and[facility] E[facility] Incentive Program,which states Providers who transition their patient to another setting of careor provider of care or refers their patient to another provider of care shouldprovide summary care record for each transition of care or referral. [facility] Allergies Active Allergy Reactions Criticality Noted Date [...] Next Due Flu Vac (3+ yrs) 06/05/2009 [id number] 06/05/2009 Influenza, Unspecified Formulation 07/27/2002 Tdap 06/18/2007 [...] 147.4 kg (325 lb) 07/29/2022 2:48 PM SEO EXPERT Height 185.4 cm (6' 1) 07/29/2022 2:48 PM SEO EXPERT Body Mass Index 42.88 07/29/2022 2:48 PM SEO EXPERT Plan of Treatment Health Maintenance Due Date Last Done Comments Colon Cancer Screening Plan Due 1965 Hep C Screening (Preventive Services) 1965 HIV Screening (Preventive Services) 1982 HepB [...] 5:28 AM CDT Trell Bansal MD LAB[facility]1 [place], [place] [phone] * Prostatic Specific Antigen (Screen) (12/29/2001 10:28 AM CDT) Prostate Specific Antigen 0.3 0.0 - 4.0 ng/mL HP CONVERSION 12/29/2001 10:2 8 AM CDT Valente Gibson [facility]1 HP CONVERSION from Last 3 Months or Most Recently Relevant to Health Maintenance Advance Directives * Full Code (Latest Code Status on File) Date Activated Date Inactivated Comments 10/03/2009 6:10 PM 10/04/2009 3:47 PM Care Teams Financial Aids Officer Relationship Specialty Start Date End Date Trell Akins MD [address] [place] [address] PCP - General Family Practice 06/27/16
--- OUTSIDE RECORDS SUMMARY | 2024-04-09 08:37 | XMS_ITS | Clinical Summary ---
Author Organization [facility] Address [place], [place] [address] Care Team Providers Care Tower Switch Operator Name Role Phone Trell Akins MD Primary Care Provider Maribel Jimenez MD Unavailable [phone] Allergies Active Allergy Reactions Criticality Noted Date [...] Resolved Date Psoriatic arthritis (HCC). S ees Molding Process Technician (Russ) at [facility] 01/30/2016 01/24/2021 Heel pain 03/05/2009 07/29/2019 Acute prostatitis 03/05/2009 01/27/2023 Encounters Date Type Department Care Team Description 04/06/2024 Telephone [facility] [address] [facility] [address] [place] [phone] Anam Zimmerman MD paroxysmal atrial fibrillation 04/04/2024 3:45 PM CDT Office Visit [facility] [address] [place] [address] Trell Akins MD Preoperative Exam (DOS: 04/15/2024, colonoscopy, [facility], Dr. Singh) 04/04/2024 Travel 03/29/[address] [facility] [address] [place] [address] Trell Akins MD Refill Request (Tramadol) 02/28/[address] [facility] [address] [place] [address] Trell Akins MD Refill Request (Tramadol) 02/19/2024 Orders Only [facility] Scanner 1 scan: [facility]-Ord[facility] RIGHT GLUTEAL TENDON INSERTION, 02/19/2024 02/17/2024 Orders Only [facility] Scanner 1 scan: (1-Ord) [facility], FOREIGN BODY REMOVAL, 02/17/2024 01/28/2024 Orders Only [facility] Scanner 1 scan: (1-Ord) [facility], SUBACROMIAL INJ, 01/28/2024 01/26/[address] [facility] [address] [place] [address] Trell Akins MD Refill Request (Tramadol) 01/18/2024 10:55 AM CDT Office Visit [facility] [address] [place] [address] Trell Akins MD Abdominal Pain (LUQ pain, started 01/17/2024) 01/18/[address] [facility] [address] [place] [address] Johnie Singh MD Pre Procedure 01/18/2024 Travel 01/18/[address] [facility] [address] [place] [address] Trell Akins MD Error-please disregard from Last [...] 36.7 ??C (98 ??F) 08/08/2021 9:14 AM MIRROR INSPECTOR Respiratory Rate 12 10/26/2017 11:0 3 AM [...] Description 04/15/2024 12:15 PM CDT Office Visit [facility] [address] [place] [phone] Johnie Singh MD [address] [place] [address] 04/27/2024 2:00 PM CDT Ancillary Procedure [facility] [address] [place] [phone] 05/13/2024 3:00 PM CDT Office Visit [address] [place] [address] Janay Lea MD [address] [place] [address] 05/23/2024 1:40 PM MIRROR INSPECTOR Office Visit [facility] [address] [place] [address] Robinson Gómez MD [address] [place], [place] [phone] Health Maintenance Due Date Last Done Comments [...] 01/26/2023, 07/23/2022 Medical Devices Implanted Type Area Roll Threader Operator Device Identifier Shelf Expiration Date Model / Serial / Lot [id number] Implanted:Qty: 1 on 06/15/2012 at [facility] Explanted:at [facility] (Quantity not on file) Stomach LIFECELL WING 02/17/2014 [id number] / [id number] / Description:ALLODERM 2X12 Procedures Procedure Name Priority [...] REFLEX MEASURED LDL Routine 08/06/2023 8:05 AM MIRROR INSPECTOR Type II or unspecified type diabetes mellitus without mention of complication, not stated as uncontrolled LC HIV-1/O/2, 4TH GENERATION Routine 01/26/2023 2:58 PM CDT Screening for HIV (human immunodeficiency virus) COLONOSCOPY 09/24/2016 11:00 AM MIRROR INSPECTOR ANTI HCV Routine 09/25/2015 5:16 PM MIRROR INSPECTOR Vitamin D deficiency DM (diabetes mellitus) from [...] 11.0 thou/cu mm 01/18/2024 11:36 AM CDT [facility] RED BLOOD COUNT 4.45 4.30 - 5.90 mil/cu mm 01/18/2024 11:36 AM CDT [facility] HEMOGLOBIN 14.1 13.5 - 17.5 g/dL 01/18/2024 11:36 AM CDT [facility] HEMATOCRIT 41.9 37.0 - 53.0 % 01/18/2024 11:36 AM CDT [facility] MCV 94 80 - 100 fL 01/18/2024 11:36 AM CDT [facility] MCH 31.7 26.0 - 34.0 pg 01/18/2024 11:36 AM CDT [facility] MCHC 33.7 32.0 - 36.0 g/dL 01/18/2024 11:36 AM CDT [facility] RDW 13.8 11.5 - 15.5 % 01/18/2024 11:36 AM CDT [facility] PLATELET COUNT 235 140 - 440 thou/cu mm 01/18/2024 11:36 AM CDT [facility] MPV 10.7 6.5 - 11.0 fL 01/18/2024 11:36 AM CDT [facility] % NEUT 66.3 % 01/18/2024 11:36 AM CDT [facility] % LYMPH 21.4 % 01/18/2024 11:36 AM CDT [facility] % MONO 9.7 % 01/18/2024 11:36 AM CDT [facility] % EOS 2.0 % 01/18/2024 11:36 AM CDT [facility] % BASO 0.6 % 01/18/2024 11:36 AM CDT [facility] ABSOLUTE NEUTROPHILS 4.2 1.7 - 7.0 thou/cu mm 01/18/2024 11:36 AM CDT [facility] ABSOLUTE LYMPHOCYTES 1.4 0.9 - 2.9 thou/cu mm 01/18/2024 11:36 AM CDT [facility] ABSOLUTE MONOCYTES 0.6 <0.9 thou/cu mm 01/18/2024 11:36 AM CDT [facility] ABSOLUTE EOSINOPHILS 0.1 <0.5 thou/cu mm 01/18/2024 11:36 AM CDT [facility] ABSOLUTE BASOPHILS 0.0 <0.3 thou/cu mm 01/18/2024 11:36 AM CDT [facility] Blood BLOOD SPECIMEN / Unknown Venipuncture / Unknown 01/18/2024 11:32 AM CDT 01/18/2024 11:32 AM CDT Trell Akins MD HEMATOLOGY [facility] [address] [place] [address], * TESTOSTERONE,TOTAL (01/18/2024 11:32 AM CDT) Pathologist [facility] TESTOSTERONE,T OTAL 454.0 ng/dL 01/19/2024 4:19 AM CDT [facility] Blood BLOOD SPECIMEN / Unknown Venipuncture / Unknown 01/18/2024 11:32 AM CDT 01/18/2024 11:32 AM CDT Narrative [facility] - 01/19/2024 4:19 AM CDT ? TESTOSTERONE, TOTAL REFERENCE RANGES Age Range ? Female ?Male ?Units 20-50 years ? 8.4-48.1 ?249.0-836.0 ?? ng/dl 50-999 years ?2.9-40.8 ?193.0-740.0 ?? ng/dl Trell Akins MD CHEMISTRY [facility] [address] [place] [address], * HEMOGLOBIN A1C MONITORING (POCT) (01/18/2024 11:32 AM CDT) HEMOGLOBIN A1C MONITORING (POCT) 6.1 <=6.4 % 01/18/2024 11:41 AM CDT [facility] Blood BLOOD SPECIMEN / Unknown Venipuncture / Unknown 01/18/2024 11:32 AM CDT 01/18/2024 11:32 AM CDT Narrative [facility] - 01/18/2024 11:41 AM CDT ? (<=6.9%) [...] Anemias, Splenectomy ? Trell Akins MD CHEMISTRY Performing Organization Address City/[facility]/ZIP Co de Phone Number [facility] [address] [place] [address], * (ABNORMAL) VITAMIN B12 (01/18/2024 11:32 AM CDT) VITAMIN B12 1,446(H) 232 - 1,245 pg/mL 01/19/2024 3:48 AM CDT [facility] Blood BLOOD SPECIMEN / Unknown Venipuncture / Unknown 01/18/2024 11:32 AM CDT 01/18/2024 11:32 AM CDT [facility] - 01/19/2024 3:48 AM CDT Biotin supplements may cause clinically significant interference for this test assay. ??If interference is suspected, it is strongly recommended that biotin is discontinued for at least one week prior to retesting. Trell Akins MD CHEMISTRY Performing Organization Address [facility] de Phone Number [facility] [address] [place] [address], [place] * PSA TOTAL SCREEN (01/18/2024 11:32 AM CDT) PSA TOTAL (SCREEN) 0.24 <4.00 ng/mL 01/19/2024 3:48 AM CDT [facility] Blood BLOOD SPECIMEN / Unknown Venipuncture / Unknown 01/18/2024 11:32 AM CDT 01/18/2024 11:32 AM CDT [facility] - 01/19/2024 3:48 AM CDT The [...] Trell Akins MD LABORATORY Performing Organization Address [facility] Co de Phone Number [facility] [address] [place] [address], [place] * LIPID PANEL W REFLEX MEASURED LDL (08/06/2023 8:05 AM MIRROR INSPECTOR) CHOLESTEROL,TOTAL 153 100 - 199 mg/dL 08/06/2023 2:17 PM MIRROR INSPECTOR [facility] Comment: Cholesterol, Total Reference Ranges Desirable <200 mg/dL Borderline 200-239 mg/dL High >=240 mg/dL TRIGLYCERIDES 96 <150 mg/dL 08/06/2023 2:17 PM MIRROR INSPECTOR [facility] HDL CHOLESTEROL 46 >40 mg/dL 2:17 PM MIRROR INSPECTOR [facility] NON-HDL CHOLESTEROL 107 <145 mg/dl 08/06/2023 2:17 PM MIRROR INSPECTOR [facility] CHOL/HDL RATIO 3.33 <4.50 08/06/2023 2:17 PM MIRROR INSPECTOR [facility] LDL CHOLESTEROL 88 <=130 mg/dL 08/06/2023 2:17 PM MIRROR INSPECTOR [facility] VLDL CHOLESTEROL 19 <=30 mg/dL 08/06/2023 2:17 PM MIRROR INSPECTOR [facility] PROVIDER ORDERED STATUS RANDOM 08/06/2023 2:17 PM MIRROR INSPECTOR [facility] Blood BLOOD SPECIMEN / Unknown Venipuncture / Unknown 08/06/2023 8:05 AM MIRROR INSPECTOR 08/06/2023 8:05 AM MIRROR INSPECTOR Trell Akins MD CHEMISTRY [facility] [address] [place] [address], * LC HIV-1/O/2, 4TH GENERATION (01/26/2023 2:58 PM CDT) HIV Scr 4th Gen Non Reactive Non Reactive 01/29/2023 4:08 AM CDT [facility]) Comment: HIV Negative HIV-1/HIV-2 antibodies and HIV-1 p24 antigen were NOT detected. There is no laboratory evidence of HIV infection. Blood BLOOD SPECIMEN / Unknown Venipuncture / Unknown 01/26/2023 2:58 PM CDT 01/26/2023 2:59 PM CDT Narrative [facility] - 01/29/2023 4:08 AM CDT Performed at: ??01 - [facility] [address] [place], [place] ??[id number] Occupational Rehabilitation Aide: Dylan Foss MD, Phone: ??[phone] Trell Akins MD LABORATORY [facility] ([facility]) [facility] [place] [address], * COLONOSCOPY (09/24/2016 11:00 AM MIRROR INSPECTOR) 09/24/2016 11:0 0 AM MIRROR INSPECTOR Narrative Transcriptions Johnie Singh MD - 09/24/2016 11:51 AM CST Patient Name: Choco Oneil Procedure Date: 09/24/2016 Gender: Male Date of : 1965 Admit Type: Outpatient Procedure: Colonoscopy Proceduralist: Johnie Singh MD , Alecia Burektt (Nurse) Indications/Pre-Op Diagnosis: Screening for colorectal malignant neoplasm, This is the patient's first colonoscopy Medications: Fentanyl 100 micrograms IV, Midazolam 4 mgIV, The level of sedation administered wasmoderate Procedure Description: The patient had risks, benefits and alternatives explained to andgave informed consent. The patient had a stable cardiopulmonary status and judged an adequate candidate for conscious sedation. The [id number] was passed through the anus and advanced [...] reponse to care. [facility] and nursing notes for moderate sedation details. Total physician intraservice time was 19 minutes. Johnie Singh MD 09/24/2016 11:51:47 AM This report has been signed electronically. Note Initiated On: 09/24/2016 11:00 AM Procedure Code(s): --- Professional --- 45237, Colonoscopy, flexible; diagnostic, including collection of specimen(s) bybrushing or washing, when performed (separateprocedure) Diagnosis Code(s): --- Professional --- Z12.11, Encounter for screening formalignant neoplasm of colon K57.30, Diverticulosis of large intestine without perforation or abscess withoutbleeding CPT copyright 2016 [employer]. All rights reserved. The codes documented in this report are preliminary and upon golf club maker reviewmay be revised to meet current compliance requirements. Scope In: 11:30:28 AM Scope Withdrawal Time 0 hours 11 minutes 38 seconds Scope Out: 11:47:42 AM Johnie Singh MD PROCEDURE ORD * ANTI HCV (09/25/2015 5:16 PM MIRROR INSPECTOR) HEPATITIS C ANTIBODY Non-Reacti ve Non-Reacti ve 09/26/2015 1:29 PM MIRROR INSPECTOR [facility] Blood specimen (specimen) BLOOD SPECIMEN / Unknown Venipuncture / Unknown 09/25/2015 5:16 PM MIRROR INSPECTOR 09/25/2015 5:16 PM MIRROR INSPECTOR Narrative [facility] - 09/26/2015 1:29 PM MIRROR INSPECTOR Antibodies to HCV not detected; does not exclude the possibility of exposure to HCV. Trell Akins MD SEND OUTS [facility] [address] [place] [address], from Last 3 Months or Most Recently Relevant to Health Maintenance Advance Directives * Full Code (Latest Code Status on File) Date Activated Date Inactivated Comments 06/15/2012 9:21 AM 06/16/2012 2:41 PM Care Teams Tower Switch Operator Relationship Specialty Start Date End Date Trell Akins MD [address] [place] [address] PCP - General Family Practice 09/20/12 Maribel Jimenez MD [address] [facility] [address] [place] [address] Rheumatology Rheumatology 10/06/16
--- OUTSIDE RECORDS SUMMARY | 2024-04-09 08:37 | XMS_ITS | Data Portability ---
Author Organization [facility], [facility] Address [address] [place] [address] Care Team Providers Care Marine Technician Name Role Phone JASEN BO Primary Care Provider Assessment No assessment recorded. Plan of Treatment Reminders Order Date Submit Date Provider Last Modified By Organization Details Last Modified Time Details Appointments None recorded. Lab None recorded. Referral None recorded. Procedures None recorded. Surgeries None recorded. Imaging None recorded. Medication Orders tadalafil 10 mg tablet 2022 023 [id number], [address] [place], [place], [id number], 16:13:15 oxybutynin chloride ER 5 mg tablet,exte nded release 24 hr 2022 023 [id number], [address] [place], [place], [phone], 16:23:57 Patient TargetsNo targets recorded. Patient Instructions Encounter Date Encounter Id Patient Instructions Last Modified By Organization Details Last Modified Time 04/28/2023 [id number] 57 y/o male presents for an evaluation [...] Details Recorded Time Type 2 diabetes mellitus [id number] [facility] Problem Notes None recorded. Procedures Surgical History Date Name Laterality Status Provider Name and Address Organization Details Recorded Time 04/28/20 23 Bladder Scan completed Guido Grey [facility] 04/28/2023 16:20:06 05/06/20 17 Colonoscopy completed Guido Grey [facility] 04/28/2023 15:53:[address] gastr adj device [...] Name and Address Organization Details Recorded Time 335142 Non-stero idal anti-infl ammatory agent (product) medicatio n Not available Not available Not available 04/28/2023 23634 005 SN[facility]ED [facility] 15:52:43 Medications Name Sig Start Date [...] Details Last Updated DateTime 04/28/2023 38.7 kg/m2 468307.4735 55008 g 182.88 cm Not Available Health Note [...] Many Years Have You Smoked Tobacco? 36 [facility]-685 Information not available 04/27/2023 Do You [...] Time Father Family history of diabetes mellitus [facility] Not available 2022 16:20:25 Paternal Grandmother Family history of diabetes mellitus [facility] Not available 2022 16:20:25 Mother Family history of malignant neoplasm [facility]68 Not available 2022 16:20:25 Maternal Grandfather Family history of malignant neoplasm [place] [id number] Not available 2022 16:20:25 Paternal Grandfather Family history of malignant neoplasm [place] [address] Not available 2022 16:20:25 Medical History Condition Response High Blood Pressure N Kidney Stones N Depression N Sexually Transmitted Infection Y Cancer N Bleeding Disorder N Lung Disease N GERD/Acid Reflux N High Cholesterol N Diabetes Y Heart Disease N Immunizations Vaccine Type Date Status Provider Name and Address Organization Details Recorded Time influenza, unspecified formulation 04/07/2023 completed Guido lewis [facility] 04/28/2023 15:38:04 Pneumococcal conjugate PCV 13 08/08/2022 completed Guido lewis [facility] 04/28/2023 15:38:04 SARS-COV-2 (COVID-19) vaccine, UNSPECIFIED 04/07/2023 completed Guido lewis [facility] 04/28/2023 15:38:04 Influenza, split virus, quadrivalent, preservative 05/24/2014 completed Guido lewis [facility] 04/28/2023 15:38:04 Influenza, split virus, quadrivalent, preservative 05/27/2018 completed Guido lewis [facility] 04/28/2023 15:38:04 Influenza, split virus, quadrivalent, preservative 05/28/2016 completed Guido Stapaulaakov null, [facility] 04/28/2023 15:38:04 Influenza, split virus, quadrivalent, preservative 05/29/2015 completed Guido Stapaulaakov null, [facility] 04/28/2023 15:38:04 Influenza, MDCK, quadrivalent, PF 04/07/2023 completed [facility], [facility] 04/28/2023 15:38:04 Influenza, MDCK, quadrivalent, PF 04/14/2022 completed Guido Stapaulaakov null, [facility] 04/28/2023 15:38:04 zoster recombinant 07/29/2019 completed [facility] Sandovalakov null, [facility] 04/28/2023 15:38:04 zoster recombinant 10/14/2019 completed Guido Sandovalakov null, [facility] 04/28/2023 15:38:04 COVID-19, mRNA, LNP-S, PF, 100 mcg/0.5mL dose or 50 mcg/0.25mL dose 10/03/2020 completed Guido Garciav null, [facility] 04/28/2023 15:38:04 COVID-19, mRNA, LNP-S, PF, 100 mcg/0.5mL dose or 50 mcg/0.25mL dose 11/01/2020 [facility] 04/28/2023 15:38:04 COVID-19, mRNA, LNP-S, PF, 100 mcg/0.5mL dose or 50 mcg/0.25mL dose 11/20/2021 completed Guido Sandovalakov null, [facility] 04/28/2023 15:38:04 COVID-19, mRNA, LNP-S, PF, 100 mcg/0.5mL dose or 50 mcg/0.25mL dose 05/20/2021 [facility] 15:38:04 Pneumococcal conjugate PCV20, polysaccharide [id number] conjugate, adjuvant, PF 07/30/2022 [facility]2023 15:38:04 COVID-19, mRNA, LNP-S, bivalent, PF, 30 mcg/0.3 mL dose 04/14/2022 completed [facility]ido Stalmakov null, [facility] 04/28/2023 15:38:04 pneumococcal polysaccharide PPV23 10/02/2011 completed Guido Stalmakov null, [facility] 04/28/2023 15:38:04 influenza, unspecified formulation 07/20/2014 completed Guido Stalmakov null, [facility] 04/28/2023 15:38:04 influenza, unspecified formulation 04/19/2013 completed Guido Stalmakov null, [facility] 04/28/2023 15:38:04 influenza, unspecified formulation 04/19/2014 completed Guido Stalmakov null, [facility] 04/28/2023 15:38:04 influenza, unspecified formulation 04/19/2016 completed Guido Stalmakov null, [facility] 04/28/2023 15:38:04 Tdap 07/30/2021 completed Guido Stalmakov null, [facility] 04/28/2023 15:38:04 Tdap 03/11/2012 completed Guido Stalmakov null, [facility] 04/28/2023 15:38:04 Tdap 06/18/2007 completed Guido Stalmakov null, [facility] 04/28/2023 15:38:04 Novel Jvfubjzmp-[id number], all formulations 09/06/2009 completed Guido Stalmakov null, [facility] 04/28/2023 15:38:04 Novel Frtxikwhx-G4N0-79, all formulations 06/05/2009 completed Guido Stalmakov null, [facility] 04/28/2023 15:38:04 Influenza, split virus, trivalent, preservative 04/15/2010 completed Guido Stalmakov null, [facility] 04/28/2023 15:38:04 Influenza, split virus, trivalent, preservative 04/28/2012 completed Guido Stalmakov null, [facility] 04/28/2023 15:38:04 Influenza, split virus, trivalent, PF 06/05/2009 completed Guido Stalmakov null, [facility] 04/28/2023 15:38:04 Hep B, adult 08/27/2016 completed Guido Stapaulaakov null, [facility] 04/28/2023 15:38:04 Hep B, adult 10/13/2016 completed Guido Stapaulaakov null, [facility] 04/28/2023 15:38:04 Hep B, adult 04/13/2017 completed Guido Stapaulaakov null, [facility] 04/28/2023 15:38:04 Influenza, split virus, quadrivalent, PF 04/04/2021 completed Guido Stalmakov null, [facility] 04/28/2023 15:38:04 Influenza, split virus, quadrivalent, PF 04/05/2020 completed Guido Stalmakov null, [facility] 04/28/2023 15:38:04 Influenza, split virus, quadrivalent, PF 04/13/2017 completed Guido Stalmakov null, [facility] 04/28/2023 15:38:04 Influenza, split virus, quadrivalent, PF 05/10/2019 completed Guido Stalmakov null, [facility] 04/28/2023 15:38:04 Past Encounters Encounter ID Performer Location Encounter Start Date Encounter Closed Date Diagnosis/Indication Diagnosis SNOMED-CT Code Diagnosis ICD10 Code [id number] PATRICK DIANALYDIA [facility] [place] [address] [address] 04/28/2023 15:18:44 04/28/2023 17:02:14 Induration penis plastica 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.6 Primary er ectile dysfunction 054472561 N52.9 Lower urin beatris tract symptoms due to benign prostatic hypertrophy [id number] 9101 N40.1 Increased frequency of urination 597547161 R35.0 Health Concerns Section Related Observation LastModified by Organization Detai ls LastModified Time None Recorded Concern Status LastModified by Organization Details LastModified Time None Recorded Advance Directives Directive None Recorded Payers Encounter Date Sequence Insurance Name Policy Number Policy Kruger Covered Member ID Kruger Member ID Guarantor Name 04/28/2023 1 [facility] [id number] Choco Marvin [id number] Choco Marvin 04/28/2023 2 [facility] [id number] Choco Marvin [id number] Choco Bucio Clarice Notes Date Note Type [...] bladder emptying with voids. PATRICK ORTIZ, PAC [address] [place] [address],[address], [place], [address], [facility] 04/28/2023 16:30:50
--- OUTSIDE RECORDS SUMMARY | 2024-04-09 08:37 | XMS_ITS | Encounter Summary ---
Author Organization [facility] Address [address] [place] [address] Care Team Providers Care Immigration Specialist Name Role Phone Trell Akins MD Primary Care Provider Encounter Details Date Type Department Care Team (Late st Contact Info) Description 05/25/2007 Consent for Procedure/Treatme nt [facility] [address] [place] [id number] Joselito Geiger MD INFORMED CONSENT RECORD Social [...] * Joselito Geiger - 05/25/2007 12:00 AM OBSERVER GRAVITY PROSPECTING RVER GRAVITY PROSPECTING documented in this encounter Plan of Treatment Not on file documented as of this encounter Visit Diagnoses Not on filedocumented in this encounter Care Teams Immigration Specialist Relationship Specialty Start Date End Date Trell Akins MD [address] [place] [address] PCP - General Family Practice 06/27/16 documented as of this encounter
== END 2024-04-06 01:45 | disposition home or self-care (01) ==
LOC: AMB 04-09 08:36
PROVIDERS: PCP Family Medicine; Visit Provider Emergency Medicine
DX: I49.9 Cardiac arrhythmia, unspecified (principal)
CPT/HCPCS: A0425; A0427

== ENCOUNTER 2024-04-06 02:08 | Emergency (ER) | payer OTHER, SELFPAY ==
--- NOTE | 2024-04-06 02:11 | ED_ITS ---
HPI - General Adult General Date Seen: 04/06/24 Chief complaint: Chest Pain Stated complaint: Chest pain Time Seen by Provider: 04/06/24 02:11 History of Present Illness HPI narrative: Pleasant 58-year-old male with a history BPH, history of diverticulitis, presen ting to the ER today for evaluation of chest pressure and palpitations. Patient developed symptoms of chest pressure and a funny feeling in his neck this evening and called 911. He could feel his heart beating rapidly and irregularly. He felt dizzy and lightheaded and presyncopal. He was not nauseous. When paramedics arrived on scene his personnel monitor showed atrial fibrillation with rapid ventricular response. Shortly after they got him on the monitor he spontaneously converted back to sinus rhythm and is now in sinus rhythm. No other symptoms. No recent travel. No swelling in his legs. No recent vomiting or diarrhea. No recent cough or cold or fever. No alcohol intake. He does drink caffeine but does not change his amount of caffeine lately. He recalls that he has had palpitations off and on for several years. He had a heart monitor last year that diagnosed PVCs but no AFib. He does feel palpitations almost every night when he goes to bed. He has never had such a ra pid or intense episode of palpitations as he fell tonight. Related Data Home Medications ?Medication ?Instructions ?Recorded ?Confirmed gabapentin 300 mg capsule 300 mg PO TID 01/12/23 04/06/24 tamsulosin 0.4 mg capsule 0.8 mg PO DAILY 01/12/23 04/06/24 tramadol 50 mg tablet 50 mg PO 3XD PRN 01/12/23 04/06/24 Previous Rx's ?Medication ?Instructions ?Recorded metoprolol succinate 25 mg 12.5 mg (1/2 x 25 mg) PO DAILY #30 04/06/24 tablet,extended release 24 hr tabs Allergies Allergy/AdvReac Type Severity Reaction Status Date / Time Penicillins Allergy Unknown Verified 04/06/24 02:28 NSAIDS (Non-Steroidal AdvReac Verified 04/06/24 02:28 Anti-Inflamma Blood group specific Allergy Uncoded 05/13/23 14:33 Substance PFSH [facility] Medical History Hx of pilonidal cyst ?Z87.2 - Personal history of diseases of the skin and subcutaneous tissue (ICD-10) Type 2 diabetes mellitus ?E11.9 - Type 2 diabetes mellitus without complications (ICD-10) Pulmonary nodule ?R91.1 - Solitary pulmonary nodule (ICD-10) Neuropathy ?G62.9 - Polyneuropathy, unspecified (ICD-10) Anxiety state, unspecified ?F41.1 - Generalized anxiety disorder (ICD-10) Diverticulitis ?K57.92 - Diverticulitis of intestine, part unspecified, without perforation or abscess without bleeding (ICD-10) Plantar fasciitis of left foot (~2011) ?M72.2 - Plantar fascial fibromatosis (ICD-10) Medial epicondylitis, right elbow (~11/2017) ?M77.01 - Medial epicondylitis, right elbow (ICD-10) Lateral epicondylitis, right elbow (~11/2017) ?M77.11 - Lateral epicondylitis, right elbow (ICD-10) Bilateral shoulder bursitis ?M75.51 - Bursitis of right shoulder (ICD-10) ?M75.52 - Bursitis of left shoulder (ICD-10) Surgical History History of medial meniscus repair of right knee (02/17/23) ?Z98.890 - Other specified postprocedural states (ICD-10) Hx of vasectomy ?Z98.52 - Vasectomy status (ICD-10) History of bariatric surgery ?Z98.84 - Bariatric surgery status (ICD-10) History of arthroscopy of left knee (10/25/20) ?Z98.890 - Other specified postprocedural states (ICD-10) Family History Mother Lung cancer Diabetes Heart disease Father Diabetes Heart disease Other Aneurysm Bleeding disorder Social History What is your current living situation?: I presently have a place to live Problems where you live: no known problems Problems where you live details: n/a In the past 12 months, utilities in danger of being shut off: no In past 12 months, lack of transportation kept you from medical appts, meetings, work, or getting things needed for daily living: no In the past 12 mos, have been you worried that your food would run out before you had money to buy more?: never true In the past 12 mos, the food you bought just didn't last and you didn't have money to buy more?: never true Smoking Status: Never smoker Do you use any of these nicotine containing products: Smokeless Tobacco Second hand tobacco smoke exposure: No How often do you have a drink containing alcohol: monthly or less How many standard drinks containing alcohol do you have on a typical day: 1 or 2 How often do you have six or more drinks on one occasion: Less than monthly AUDIT-C Alcohol total score: 2 Non-prescribed substance use: denies use Caffeine: Yes (1 thermos of 1/2 caf coffee/day) How often does anyone, including family, friends and others, physically hurt you : never How often does anyone, including family, friends and others, insult or talk down to you: never How often does anyone, including family, friends and others, threaten you with harm: never How often does anyone, including family, friends and others, scream or curse at you: never service: No Exam Narrative: Exam Narrative: Constitutional: Appears well-developed and well-nourished. Alert. Conversant. Non toxic. HENT: Head: Atraumatic. Nose: Nose normal. Mouth/Throat: Oral mucosa is clear and moist. no trismus. Pharynx normal. Eyes: Conjunctivae normal. EOM normal. Pupils equal, round, and reactive to light. No scleral icterus. Neck: Normal range of motion. Neck supple. No tracheal deviation present. Thyroid normal Cardiovascular: Normal rate, regular rhythm. No gallop. No friction rub. No murmur heard. Symmetric radial and PT artery pulses Pulmonary/Chest: Effort normal. No stridor. No respiratory distress. No wheezes. No rales. No rhonchi . No tenderness. Abdominal: Soft.No distension. No mass. No tenderness. No rebound. No guarding. Musculoskeletal: RUE: Normal range of motion. No tenderness. No deformity LUE: Normal range of motion. No tenderness. No deformity RLE: Normal range of motion. No edema. No tenderness. No deformity LLE: Normal range of motion. No edema. No tenderness. No deformity Lymph: No cervical adenopathy. Neurological: Alert and oriented to person, place, and time. Normal strength. CN II-VII intact. No sensory deficit. GCS eye subscore is 4. GCS verbal subscore is 5. GCS motor subscore is 6. Normal coordination Skin: Skin is warm and dry. No rash noted. No pallor. Normal capillary refill. Psychiatric: Normal mood. Normal affect. Const: Vital Signs, click to edit/add: Vital Signs - 24 hr 04/06/24 02:23 04/06/24 02:55 Temperature 98.7 F Pulse Rate 64 Pulse Rate [Pulse Oximeter] 65 Respiratory Rate 18 Blood Pressure [Le ft Upper Arm] 132/82 Pulse Oximetry 97 93 Oxygen Delivery Me thod Room Air Course Vital Signs Vital signs: Initial Vital Signs Temperature 98.7 F 04/06/24 02:23 Temperature Source Temporal Artery Scan 04/06/24 02:23 Pulse Rate 65 04/06/24 02:23 Pulse Rhythm Regular 04/06/24 02:23 Pulse Strength 3+ Normal 04/06/24 02:23 Respiratory Rate 18 04/06/24 02:23 Blood Pressure 132/82 04/06/24 02:23 Blood Pressure Mean 98 04/06/24 02:23 Blood Pressure Position Semi-Fowlers 04/06/24 02:23 Pulse Oximetry 97 04/06/24 02:23 Oxygen Delivery Method Room Air 04/06/24 02:23 Vital Signs Temperature 98.7 F 04/06/24 02:23 Pulse Rate 65 04/06/24 02:23 Respiratory Rate 18 04/06/24 02:23 Blood Pressure 132/82 04/06/24 02:23 Pulse Oximetry 97 04/06/24 02:23 Oxygen Delivery Method Room Air 04/06/24 02:23 Temperature 98.7 F 04/06/24 02:23 Pulse Rate 64 04/06/24 02:55 Respiratory Rate 18 04/06/24 02:23 Blood Pressure 132/82 04/06/24 02:23 Pulse Oximetry 93 04/06/24 02:55 Oxygen Delivery Method Room Air 04/06/24 02:23 Medical Decision Making MDM Narrative Medical decision making narrative: This patent presents for evaluation of palpitations, with very clear onset at at about 1am this morning. Has had frequent palpitations almost every night for a year or two. Has a prior diagnosis of PVCs but no previous mention of AFib. Rhythm strip from EMS confirms AFib with RVR. He spontaneously converted back to sinus rhythm while he was being transported by EMS here to the hospital.. I doubt acute coronary syndrome, thyroid issues, PE, dissection, drug ingestion, acute electrolyte imbalance, etc. Labs and CXR look ok. EKG looks excellent. He has sinus rhythm in the 60s and sometimes sinus bradycardia in the high 50s here in the ER. Asymptomatic after spontaneous conversion now and would not hospitalize. Discussed with patient and the patient is in agreement. Discussed with Cardiology Will start metoprolol XR 12.5 mg daily to try to help keep heart rate under control. We recognize that he has sinus rhythm in the low 60s and high 50s here in the ER. If this metoprolol is causing too much bradycardia or weakness he will have postop. Chads Vasc 2 score is 0. Per Cardiology, hold off on anticoagulation. Should see cardiology . Will need outpatient Holter monitor, echocardiogram, arranged through his primary care provider at the [facility] clinic here in [place] Lab Data Labs: Lab Results 04/06/24 04/06/24 Range/Units 02:12 02:40 WBC 6.34 (4.50-11.00) K/uL RBC 4.78 (4.30-5.90) m/uL Hgb 14.8 (13.5-17.5) gm/dL Hct 45.4 (37.0-53.0) % MCV 95 (80-100) fL MCH 31 (26-34) pg MCHC 33 (32-36) gm/dL RDW Coeff of Mariia 13.4 (11.5-15.5) % Plt Count 197 (140-440) K/uL Neut % (Auto) 59.3 (42.0-72.0) % Lymph % (Auto) 27.0 (20-44) % [place] % (Auto) 9.9 (0.0-11.0) % Eos % (Auto) 2.5 (0.0-7.0) % Baso % (Auto) 1.1 (0.0-3.0) % Neut # (Auto) 3.76 (1.7-7.0) K/uL Lymph # (Auto) 1.71 (0.90-2.90) K/uL [place] # (Auto) 0.60 (0.00-0.90) K/UL Eos # (Auto) 0.16 (0.00-0.50) K/uL Baso # (Auto) 0.07 (0.00-0.30) K/uL Abs Immat Gran (auto) 0.01 (0.00-0.30) K/uL Imm/Tot Granulo (auto) 0.2 % Sodium 141 (135-149) mmol/L Potassium 3.9 (3.6-5.1) mmol/L Chloride 102 (96-114) mmol/L Carbon Dioxide 28 (20-32) mmol/L Anion Gap 11 (7-15) mEq/L BUN 20 (7-30) mg/dL Creatinine 0.9 (0.5-1.5) mg/dL Estimated Creat Clear 105.29 Estimated GFR 100 ml/min Glucose 112 (60-115) mg/dL Calcium 9.7 (8.4-10.6) mg/dL TSH 3.530 (0.270-4.200) uIU/mL Ethyl Alcohol < 0.01 L (0.01-0.03) % POC Troponin I 0.00 L (0.01-0.04) ng/ml ECG Data Attestation: I personally reviewed and interpreted this ECG as follows: Interpretation: Sinus bradycardia Rate: 59 CO: 144 Possible left atrial enlargement. QRS axis: Normal axis. No pathologic Q-waves. ST segment/T wave: No ST segment elevation or depression. QTc: 411 Discharge Plan Discharge Clinical Impression: PAF (paroxysmal atrial fibrillation) Patient Disposition: Home, Self-Care Condition: Stable Instructions: A-fib (Atrial Fibrillation) (ED) Additional Instructions: Please follow-up with your regular doctor at the [facility] as soon as possible. Call them tomorrow morning to arrange an ER follow-up appointment. Ask your doctor to help you arrange: an outpatient heart monitor (to monitor for runs of AFib over the next couple of weeks) An echocardiogram (to assess the strength of your heart muscle) Consultation with Cardiology Before you have your colonoscopy talk to your doctor about your atrial fibrillation. If you have any more episodes of palpitations or chest pain, dizziness or fainting spells, please return to the emergency room right away to be rechecked Prescriptions: New metoprolol succinate 25 mg tablet extended release 24 hr 12.5 mg PO DAILY Qty: 30 2RF No Action tramadol 50 mg tablet 50 mg PO 3XD PRN gabapentin 300 mg capsule 300 mg PO TID tamsulosin 0.4 mg capsule 0.8 mg PO DAILY Follow Up/Referrals: Trell Akins MD [Primary Care Provider] - Stand Alone Forms: [facility] Info Instructions
[2024-04-06 02:23] VITALS: BP 132/82; PULSE 65; RESP 18; TEMP 37.1; O2SAT 97; BMI 38.5
[2024-04-06 02:49] LABS: Basophils Absolute Auto 0.07 K/uL (0.00-0.30); Basophils Percent Auto 1.1 % (0.0-3.0); Eosinophils Absolute Auto 0.16 K/uL (0.00-0.50); Eosinophils Percent Auto 2.5 % (0.0-7.0); Hematocrit 45.4 % (37.0-53.0); Hemoglobin* 14.8 gm/dL (13.5-17.5); Immature Granulocytes Abs Auto 0.01 K/uL (0.00-0.30); Immature Granulocytes Pct Auto 0.2 %; Lymphocytes Absolute Auto 1.71 K/uL (0.90-2.90); Mean Corpuscular HGB Conc 33 gm/dL (32-36); Mean Corpuscular Hemoglobin 31 pg (26-34); Mean Corpuscular Volume 95 fL (80-100); Monocytes Percent Auto 9.9 % (0.0-11.0); Neutrophils Absolute Auto 3.76 K/uL (1.7-7.0); Neutrophils Percent Auto 59.3 % (42.0-72.0); Platelet Count* 197 K/uL (140-440); RDW Coefficient of Variation % 13.4 % (11.5-15.5); Red Blood Count 4.78 m/uL (4.30-5.90); Slide Review Reflex No; White Blood Count* 6.34 K/uL (4.50-11.00)
--- OUTSIDE RECORDS SUMMARY | 2024-04-06 02:52 | XMS_ITS | Data Portability ---
Author Organization [facility], [facility] Address [address] [place] [address] Care Team Providers Care Print Producer Name Role Phone JASEN BO Primary Care Provider Assessment No assessment recorded. Plan of Treatment Reminders Order Date Submit Date Provider Last Modified By Organization Details Last Modified Time Details Appointments None recorded. Lab None recorded. Referral None recorded. Procedures None recorded. Surgeries None recorded. Imaging None recorded. Medication Orders tadalafil 10 mg tablet 2022 023 [facility] #[id number], [address] [place], [place], [phone], 16:13:15 oxybutynin chloride ER 5 mg tablet,exte nded release 24 hr 2022 023 [id number], [address] [place], [place], [phone], 16:23:57 Patient TargetsNo targets recorded. Patient Instructions Encounter Date Encounter Id Patient Instructions Last Modified By Organization Details Last Modified Time 04/28/2023 [id number] 57 y/o male presents for an evaluation [...] Reason for Referral None Reported. Problems Name Problem SNOMED Code Status Onset Date Resolution Date Notes Provider Name and Address Organization Details Recorded Time Type 2 diabetes mellitus 38709340 [facility] Problem Notes None recorded. Procedures Surgical History Date Name Laterality Status Provider Name and Address Organization Details Recorded Time 04/28/20 23 Bladder Scan completed Guido [facility] 04/28/2023 16:20:06 05/06/20 17 Colonoscopy completed Guido [facility] 04/28/2023 15:53:[address] gastr adj device [...] Name and Address Organization Details Recorded Time [id number] Non-stero idal anti-infl ammatory agent (product) medicatio n Not available Not available Not available 04/28/2023 61634 005 SN[facility]ED [facility] 15:52:43 Medications Name Sig Start Date Stop Date Status Note LastModified by Organization Details LastModified Time valacyclovi r 1 gram tablet TAKE 1 TABLET BY MOUTH TWICE DAILY NEEDED active Not Available Not Available No t Available prednisone 5 mg tablet TAKE DIRECTED active [...] azelastine 137 mcg (0.1 %) nasal spray USE 2 SPRAYS IN EACH NOSTRIL TWICE DAILY active Not Available Not Available No t Available fluticasone propionate 50 mcg/actuati on nasal spray,suspe nsion SHAKE LIQUID AND USE 2 SPRAYS IN EACH NOSTRIL EVERY DAY active Not Available Not Available No t Available tobramycin 0.3 %-dexametha sone 0.1 % eye drops,suspe nsion SHAKE LIQUID AND INSTILL 1 DROP IN RIGHT EYE FOUR TIMES DAILY DIRECTED active Not Available Not Available No [...] Available Not Available No t Available calcium 195 mg (as calcium carbonate 500 mg) chewable tablet 500mg 2/day active Not Available Not Available No t Available Accu-Chek Guide test strips TEST DAILY NEEDED active Not Available Not Available No t [...] Details Last Updated DateTime 04/28/2023 38.7 kg/m2 361277.3689 72361 g 182.88 cm Not Available Health Note [...] Many Years Have You Smoked Tobacco? 36 [facility]-685 Information not available 04/27/2023 Do You Or Have You Ever Used Any Other Forms Of Tobacco Or Nicotine? No Information not available 04/28/2023 How Many Days In The Past Year Have You Consumed 5 Or More Drinks? 10 [facility]-685 Information no t available 04/27/2023 Sex: Unknown Functional Status None recorded. Mental Status None recorded. Family History Relationship Description Onset Age of this Age Resolved Age Notes LastModified by Organization Details LastModified Time Father Family history of diabetes mellitus [facility]68 Not available 2022 16:20:25 Paternal Grandmother Family history of diabetes mellitus [facility]68 Not available 2022 16:20:25 Mother Family history of malignant neoplasm [facility]68 Not available 2022 16:20:25 Maternal Grandfather Family history of malignant neoplasm [place] [id number] Not available 2022 16:20:25 Paternal Grandfather Family history of malignant neoplasm [place] [id number] Not available 2022 16:20:25 Medical History Condition Response High Blood Pressure N Kidney Stones N Lung Disease N Depression N GERD/Acid Reflux N Sexually Transmitted Infection Y Cancer N High Cholesterol N Diabetes Y Bleeding Disorder N Heart Disease N Immunizations Vaccine Type Date Status Provider Name and Address Organization Details Recorded Time influenza, unspecified formulation 04/07/2023 completed Guido lew[facility] 04/28/2023 15:38:04 Pneumococcal conjugate PCV 13 08/08/2022 completed Guido lewis [facility] 04/28/2023 15:38:04 SARS-COV-2 (COVID-19) vaccine, UNSPECIFIED 04/07/2023 completed Guido lewis [facility] 04/28/2023 15:38:04 Influenza, split virus, quadrivalent, preservative 05/24/2014 completed Guido lewis [facility] 04/28/2023 15:38:04 Influenza, split virus, quadrivalent, preservative 05/27/2018 completed Guido lewis [facility] 04/28/2023 15:38:04 Influenza, split virus, quadrivalent, preservative 05/28/2016 completed Guido Stapaulaakov null, [facility] 04/28/2023 15:38:04 Influenza, split virus, quadrivalent, preservative 05/29/2015 completed Guido Stapaulaakov null, [facility] 04/28/2023 15:38:04 Influenza, MDCK, quadrivalent, PF 04/07/2023 completed [facility], [facility] 04/28/[facility] 15:38:04 Influenza, MDCK, quadrivalent, PF 04/14/2022 completed Guido Stapaulaakov null, [facility] 04/28/2023 15:38:04 zoster recombinant 07/29/2019 completed [facility] Sandovalakov null, [facility] 04/28/2023 15:38:04 zoster recombinant 10/14/2019 completed Guido Sandovalakov null, [facility] 04/28/2023 15:38:04 COVID-19, mRNA, LNP-S, PF, 100 mcg/0.5mL dose or 50 mcg/0.25mL dose 10/03/2020 completed Guido Garciav null, [facility] 04/28/2023 15:38:04 COVID-19, mRNA, LNP-S, PF, 100 mcg/0.5mL dose or 50 mcg/0.25mL dose 11/01/2020 [facility] 15:38:04 COVID-19, mRNA, LNP-S, PF, 100 mcg/0.5mL dose or 50 mcg/0.25mL dose 11/20/2021 completed Guido Sandovalakov null, [facility] 04/28/2023 15:38:04 COVID-19, mRNA, LNP-S, PF, 100 mcg/0.5mL dose or 50 mcg/0.25mL dose 05/20/2021 [facility] 15:38:04 Pneumococcal conjugate PCV20, polysaccharide [id number] conjugate, adjuvant, PF 07/30/2022 [facility]23 15:38:04 COVID-19, mRNA, LNP-S, bivalent, PF, 30 mcg/0.3 mL dose 04/14/2022 completed Guido Stalmakov null, [facility] 04/28/2023 15:38:04 pneumococcal polysaccharide PPV23 10/02/2011 completed Guido Stalmakov null, [facility] 04/28/2023 15:38:04 influenza, unspecified formulation 07/20/2014 completed Guido Stalmakov null, [facility] 04/28/2023 15:38:04 influenza, unspecified formulation 04/19/2013 completed Guido Stalmakov null, [facility] 04/28/2023 15:38:04 influenza, unspecified formulation 04/19/2014 completed Guido Stalmakov null, [facility] 04/28/2023 15:38:04 influenza, unspecified formulation 04/19/2016 completed Guido Stalmakov null, [facility] 04/28/2023 15:38:04 Tdap 07/30/2021 completed Guido Stalmakov null, [facility] 04/28/2023 15:38:04 Tdap 03/11/2012 completed Guido Stalmakov null, [facility] 04/28/2023 15:38:04 Tdap 06/18/2007 completed Guido Stalmakov null, [facility] 04/28/2023 15:38:04 Novel [id number]-[id number], all formulations 09/06/2009 completed Guido Stalmakov null, [facility] 04/28/2023 15:38:04 Novel Wdripetdp-[id number], all formulations 06/05/2009 completed Guido Stalmakov null, [facility] 04/28/2023 15:38:04 Influenza, split virus, trivalent, preservative 04/15/2010 completed Guido Stalmakov null, [facility] 04/28/2023 15:38:04 Influenza, split virus, trivalent, preservative 04/28/2012 completed Guido Stalmakov null, [facility] 04/28/2023 15:38:04 Influenza, split virus, trivalent, PF 06/05/2009 completed Guido Stalmakov null, [facility] 04/28/2023 15:38:04 Hep B, adult 08/27/2016 completed Guido Stapaulaakov null, [facility] 04/28/2023 15:38:04 Hep B, adult 10/13/2016 completed Guido Stapaulaakov null, [facility] 04/28/2023 15:38:04 Hep B, adult 04/13/2017 completed Guido Stapaulaakov null, [facility] 04/28/2023 15:38:04 Influenza, split virus, quadrivalent, PF 04/04/2021 completed Guido Stalmakov null, [facility] 04/28/2023 15:38:04 Influenza, split virus, quadrivalent, PF 04/05/2020 completed Guido Stalmakov null, [facility] 04/28/2023 15:38:04 Influenza, split virus, quadrivalent, PF 04/13/2017 completed Guido Stalmakov null, [facility] 04/28/2023 15:38:04 Influenza, split virus, quadrivalent, PF 05/10/2019 completed Guido Stalmakov null, [facility] 04/28/2023 15:38:04 Past Encounters Encounter ID Performer Location Encounter Start Date Encounter Closed Date Diagnosis/Indication Diagnosis SNOMED-CT Code Diagnosis ICD10 Code [id number] PATRICK DIANALYDIA [facility] [address] [id number] 04/28/2023 15:18:44 04/28/2023 17:02:14 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 Primary er ectile dysfunction 664910907 N52.9 Lower urin beatris tract symptoms due to benign prostatic hypertrophy 0734610276 9101 N40.1 Increased frequency of urination 798581761 R35.0 Health Concerns Section Related Observation LastModified by Organization Detai ls LastModified Time None Recorded Concern Status LastModified by Organization Details LastModified Time None Recorded Advance Directives Directive None Recorded Payers Encounter Date Sequence Insurance Name Policy Number Policy Kruger Covered Member ID Kruger Member ID Guarantor Name 04/28/2023 1 [facility] [id number] Choco Marvin [id number] Choco Marvin 04/28/2023 2 [facility] [id number] Choco Marvin [id number] Choco Bucio Clarice Notes Date Note Type Note Provider Name [...] of incomplete bladder emptying with voids. PATRICK ORTIZ, PAC [address] [place] [address],[address], [place], [address], [facility] 04/28/2023 16:30:50
--- OUTSIDE RECORDS SUMMARY | 2024-04-06 02:53 | XMS_ITS | Clinical Summary ---
Author Organization [facility] Address [place], [place] [address] Care Team Providers Care Chair Trimmer Name Role Phone Trell Akins MD Primary Care Provider Maribel Jimenez MD Unavailable [phone] Allergies Active Allergy Reactions Criticality Noted Date [...] mouth. Take 2,000mg in three divided doses Active pediatric multivitamins-iro n 18 mg chewable (FLINTSTONES PLUS IRON; BUGS BUNNY PLUS IRON) chewable tablet Take 1 tablet by mouth 2 times daily. 180 tablet 4 4 Active blood-glucose meterIndications: Diabetes mellitus without complication (HC) Dispense contour meter. 1 Device 9 Active medication order composerIndicatio ns:MAUDE (obstructive sleep apnea) 10/30/2020 AHI-18 HST 05/03/2021 AHI-11; diagnosis obstructive sleep apnea; MRD #1 1 unit 1 Active sildenafil citrate (VIAGRA) 50 mg tabletIndications :Erectile dysfunction, unspecified erectile dysfunction type Take 1 Tablet (50 mg) by mouth once daily if needed for Erectile Dysfunction. Take 30min to 4 hours before sexual activity. Max 100mg/24hr 5 tablet. 10 1 Active naproxen (ALEVE) 220 mg tabletIndications :Bilateral foot pain Take 1 Tablet (220 mg) by mouth every 12 hours if needed for Pain. 0 2 Active CPAPIndications:O SA (obstructive sleep apnea) CPAP machine for home use at pressure 4-15cmw, nasal mask x1/3month with nasal cushion x2/mo 1 Each 11 2 Active imiquimod 5% cream (ALDARA) 5 % creamIndications: HPV in male Apply at bedtime and leave on skin for 8 hours. Thursday, Thursday, Thursday for up 12 weeks. 24 Packet 3 Active cyanocobalamin (VITAMIN B12) 1,000 mcg tablet One tab oral every other day. 0 3 Active blood sugar diagnostic (Blood Glucose Test) stripIndications: Diabetes mellitus without complication (HC) Test 1 times per day as needed for hypoglycemia. 100 Each 3 3 Active gabapentin (NEURONTIN) 300 mg capsuleIndication s:Bilateral foot pain Take 1 Capsule (300 mg) by mouth three times daily. 270 Capsule 3 4 Active tamsulosin (FLOMAX) 0.4 mg capsuleIndication s:BPH without urinary obstruction Take 2 Capsules (0.8 mg) by mouth once daily after a meal. 180 Capsule 3 4 Active valACYclovir (VALTREX) 1 gram tabletIndications :Rash TAKE 1 TABLET BY MOUTH TWICE DAILY NEEDED 30 Tablet 3 4 Active polyethylene glycol-electrolyt e (GOLYTELY) 236-22.74-6.74 -5.86 gram suspensionIndicat ions:Encounter for screening colonoscopy Drink 2 liters the day before the procedure and 2 liters 6 hours prior to procedure. 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 Singh) 04/04/2024 Travel 03/29/2024 Refill [facility] [address] [place] [address] Trell Akins MD Refill Request (Tramadol) 02/28/2024 Refill [facility] [address] [place] [address] Trell Akins MD Refill Request (Tramadol) 02/19/2024 Orders Only [facility] Scanner 1 scan: (1-Ord) [facility], INJ RIGHT GLUTEAL TENDON INSERTION, 02/19/2024 02/17/2024 Orders Only [facility] Scanner 1 scan: (1-Ord) [facility], FOREIGN BODY REMOVAL, 02/17/2024 01/28/2024 Orders Only [facility] Scanner 1 scan: ([facility]-Ord[facility], 01/28/2024 01/26/2024 Refill [facility] [address] [place] [address] Trell Akins MD Refill Request (Tramadol) 01/18/2024 10:55 AM CDT Office Visit [facility] [address] [place] [address] Trell Akins MD Abdominal Pain (LUQ pain, started 01/17/2024) 01/18/2024 Telephone [facility] [address] [place] [address] Johnie Singh MD Pre Procedure 01/18/2024 Travel 01/18/2024 Telephone [facility] [address] [place] [address] Trell Akins MD Error-please disregard from Last 3 Months Immunizations Name Administration [...] Current Chew Tobacco Cessation:Ready to Q uit: No; Counseling Given: No Comments:on Chantix-no cigs in 10 days 12-13-13 Alcohol Use Standard Drinks/Week Comments Yes 0 (1 standard drink = 0.6 oz pur e alcohol) rare since surgery PHQ-2 Answer Date Recorded PHQ-2 TOTAL SCORE 0 08/13/2023 Social Connections Answer Date Recorded Frequency of Communication with Friends and Fami ly 0 01/18/2024 Financial Resource Strain Answer Date R ecorded Difficulty of Paying Living Expenses 3 01/18/2024 Difficulty of Paying Living Expenses Not on file 01/18/2024 Food Insecurity Answer Date Recorded Worried About Running Out of Food in the Last Ye ar 1 01/18/2024 Transportation Needs Answer Date Record ed Lack of Transportation (Medical) 1 01/18/2024 Housing Stability Answer Date Recorded Unable to Pay for Housing in the Last Year 1 01/18/2024 Sex and Gender Information Value Date Recorded Sex Assigned at Male 05/17/2020 10:21 PM CDT Gender Identity Male 05/17/2020 10:21 PM CDT Sexual Orientation Straight 05/17/2020 10 :21 PM CDT Obstetrics History Last Filed Vital Signs Vital Sign Reading Time Taken Comments Blood Pressure 124/79 04/04/2024 3:50 PM CDT Pulse 61 04/04/2024 3:50 PM CDT Temperature 36.7 ??C (98 ??F) 08/08/2021 9:14 AM DIRECTOR CAREER SERVICES Respiratory Rate 12 10/26/2017 11:0 3 AM CDT Oxygen Saturation 96% 04/04/2024 3:50 PM CDT Inhaled Oxygen Concentration - - Weight 128.7 kg (283 lb 12.8 oz) 04/04/2024 3:50 PM CDT Height 182.2 cm (5' 11.73) 04/04/2024 3:50 PM C DT Body Mass Index 38.78 04/04/2024 3:50 PM CDT Plan of Treatment Upcoming Encounters Date Type Department Care Team (Late st Contact Info) Description 04/15/2024 12:15 PM CDT Office Visit [facility] [address] [place] [address] Johnie Singh MD [address] [place] [address] 05/23/2024 1:40 PM DIRECTOR CAREER SERVICES Office Visit [facility] [address] [place] [address] Robinson Gómez MD [address] [place] [address] Health Maintenance Due Date Last Done Comments COVID-19 vaccine series ( season) 2024 04/07/2023, 04/14/2022, 11/20/2021, Additional history exists Influenza for age 50-64 03/20/2024 04/07/20 23, 04/07/2023, 04/14/2022, Additional history exists Depression screening for age 12+ 08/13/2024 08/13/2023, 08/01/2022, 07/30/2022, Additional history exists BMI (ht and wt on same day) for age 18+ 04/04/2025 04/04/2024, 08/13/2023, 01/27/2023, Additional history exists Colonoscopy through age 75 [...] HIV for age 15-65 Completed 01/26/2023, 07/23/2022 Medical Devices Implanted Type Area Stereoptician Device Identifier Shelf Expiration Date Model / Serial / Lot [id number] Implanted:Qty: 1 on 06/15/2012 at [facility] Explanted:at [facility] (Quantity not on file) Stomach [employer] WING 02/17/2014 [id number] / [id number] / Description:ALLODERM 2X12 Procedures Procedure Name Priority Date/Time Associated Diagnosis Comments SCAN-OPERATIVE/PROCE DURE REPORT 02/19/2024 12:00 AM CDT SCAN-OPERATIVE/PROCE DURE REPORT 02/17/2024 12:00 AM CDT SCAN-OPERATIVE/PROCE DURE REPORT 01/28/2024 12:00 AM CDT CBC WITH AUTO DIFFERENTIAL Routine 01/18/2024 11:32 AM CDT Diverticulitis TESTOSTERONE,TOTAL Routine 01/18/2024 11 :32 AM CDT Decreased libido PSA TOTAL SCREEN Routine 01/18/2024 11:3 2 AM CDT Prostate cancer screening CBC WITH AUTO DIFFERENTIAL Routine 01/18/2024 11:32 AM CDT Diverticulitis VITAMIN B12 Routine 01/18/2024 11:32 AM CDT Vitamin B12 deficiency HEMOGLOBIN A1C Routine 01/18/2024 11:32 AM CDT Diabetes mellitus without complication (HC) LIPID PANEL W REFLEX MEASURED LDL Routine 08/06/2023 8:05 AM DIRECTOR CAREER SERVICES Type II or unspecified type diabetes mellitus without mention of complication, not stated as uncontrolled LC HIV-1/O/2, 4TH GENERATION Routine 01/26/2023 2:58 PM CDT Screening for HIV (human immunodeficiency virus) COLONOSCOPY 09/24/2016 11:00 AM DIRECTOR CAREER SERVICES ANTI HCV Routine 09/25/2015 5:16 PM DIRECTOR CAREER SERVICES Vitamin D deficiency DM (diabetes mellitus) from Last 3 Months or Most Recently Relevant to Health Maintenance Results * SCAN-OPERATIVE/PROCEDURE REPORT (02/19/2024 12:00 AM CDT) Scanner OTHER * SCAN-OPERATIVE/PROCEDURE REPORT (02/17/2024 12:00 AM CDT) Scanner OTHER * SCAN-OPERATIVE/PROCEDURE REPORT (01/28/2024 12:00 AM CDT) Scanner OTHER * CBC WITH AUTO DIFFERENTIAL (01/18/2024 11:32 AM CDT) WHITE BLOOD COUNT 6.4 4.5 - 11.0 thou/cu mm 01/18/2024 11:36 AM CDT [facility] RED BLOOD COUNT 4.45 4.30 - 5.90 mil/cu mm 01/18/2024 11:36 AM CDT [facility] HEMOGLOBIN 14.1 13.5 - 17.5 g/dL 01/18/2024 11:36 AM CDT [facility] HEMATOCRIT 41.9 37.0 - 53.0 % 01/18/2024 11:36 AM CDT [facility] MCV 94 80 - 100 fL 01/18/2024 11:36 AM CDT [facility] MCH 31.7 26.0 - 34.0 pg 01/18/2024 11:36 AM CDT [facility] MCHC 33.7 32.0 - 36.0 g/dL 01/18/2024 11:36 AM CDT [facility] RDW 13.8 11.5 - 15.5 % 01/18/2024 11:36 AM CDT [facility] PLATELET COUNT 235 140 - 440 thou/cu mm 01/18/2024 11:36 AM CDT [facility] MPV 10.7 6.5 - 11.0 fL 01/18/2024 11:36 AM CDT [facility] % NEUT 66.3 % 01/18/2024 11:36 AM CDT [facility] % LYMPH 21.4 % 01/18/2024 11:36 AM CDT [facility] % MONO 9.7 % 01/18/2024 11:36 AM CDT [facility] % EOS 2.0 % 01/18/2024 11:36 AM CDT [facility] % BASO 0.6 % 01/18/2024 11:36 AM CDT [facility] ABSOLUTE NEUTROPHILS 4.2 1.7 - 7.0 thou/cu mm 01/18/2024 11:36 AM CDT [facility] ABSOLUTE LYMPHOCYTES 1.4 0.9 - 2.9 thou/cu mm 01/18/2024 11:36 AM CDT [facility] ABSOLUTE MONOCYTES 0.6 <0.9 thou/cu mm 01/18/2024 11:36 AM CDT [facility] ABSOLUTE EOSINOPHILS 0.1 <0.5 thou/cu mm 01/18/2024 11:36 AM CDT [facility] ABSOLUTE BASOPHILS 0.0 <0.3 thou/cu mm 01/18/2024 11:36 AM CDT [facility] Blood BLOOD SPECIMEN / Unknown Venipuncture / Unknown 01/18/2024 11:32 AM CDT 01/18/2024 11:32 AM CDT Trell Akins MD HEMATOLOGY Performing Organization Address [facility] Co de Phone Number [facility] [address] [place] [address], * TESTOSTERONE,TOTAL (01/18/2024 11:32 AM CDT) TESTOSTERONE,T OTAL 454.0 ng/dL 01/19/2024 4:19 AM CDT [facility] Blood BLOOD SPECIMEN / Unknown Venipuncture / Unknown 01/18/2024 11:32 AM CDT 01/18/2024 11:32 AM CDT Narrative [facility] - 01/19/2024 4:19 AM CDT ? TESTOSTERONE, TOTAL REFERENCE RANGES Age Range ? Female ?Male ?Units 20-50 years ? 8.4-48.1 ?249.0-836.0 ?? ng/dl 50-999 years ?2.9-40.8 ?193.0-740.0 ?? ng/dl Trell Akins MD CHEMISTRY Performing Organization Address City/[facility]/ZIP Co de Phone Number [facility] [address] [place] [address], * HEMOGLOBIN A1C MONITORING (POCT) (01/18/2024 11:32 AM CDT) Pathologist [facility] HEMOGLOBIN A1C MONITORING (POCT) 6.1 <=6.4 % 01/18/2024 11:41 AM CDT [facility] Blood BLOOD SPECIMEN / Unknown Venipuncture / Unknown 01/18/2024 11:32 AM CDT 01/18/2024 11:32 AM CDT [facility] - 01/18/2024 11:41 AM CDT ? (<=6.9%) ? Indicates good control ? (7.0% to 7.9%) ? Indicates fair control ? (>=8.0%) ? Indicates poor control ?? NOTE: ??These thresholds are guidelines and ?individual targets may vary. Falsely low levels may be seen with: Recent Transfusion, Recent Significant Blood Loss, Hemolytic Diseases, or Falsely elevated levels may be seen with: Untreated Anemias, Splenectomy ? Trell Akins MD CHEMISTRY [facility] [address] [place] [address], * (ABNORMAL) VITAMIN B12 (01/18/2024 11:32 AM CDT) [facility] VITAMIN B12 1,446(H) 232 - 1,245 pg/mL 01/19/2024 3:48 AM CDT [facility] Blood BLOOD SPECIMEN / Unknown Venipuncture / Unknown 01/18/2024 11:32 AM CDT 01/18/2024 11:32 AM CDT [facility] - 01/19/2024 3:48 AM CDT Biotin supplements may cause clinically significant interference for this test assay. ??If interference is suspected, it is strongly recommended that biotin is discontinued for at least one week prior to retesting. Trell Akins MD CHEMISTRY Performing Organization Address City/[facility]/ZIP Co de Phone Number [facility] [address] [place] [address], * PSA TOTAL SCREEN (01/18/2024 11:32 AM CDT) PSA TOTAL (SCREEN) 0.24 <4.00 ng/mL 01/19/2024 3:48 AM CDT [facility] Blood BLOOD SPECIMEN / Unknown Venipuncture / Unknown 01/18/2024 11:32 AM CDT 01/18/2024 11:32 AM CDT [facility] - 01/19/2024 3:48 AM CDT The test method changed on 01/13/2023. If this test has been used for serial monitoring, rebaselining is recommended. Rebaselining consists of 2 measurements, collected 3-6 weeks apart. The [employer]jiv Elecsys total PSA assay is an electrochemiluminescence immunoassay ECLIA performed on the Sanjiv Rowan e immunoassay analyzers. Values obtained with different assay methods may be different and cannot be used interchangeably. Trell Akins MD LABORATORY Performing Organization Address [facility] Co de Phone Number [facility] [address] [place] [address], * LIPID PANEL W REFLEX MEASURED LDL (08/06/2023 8:05 AM DIRECTOR CAREER SERVICES) CHOLESTEROL,TOTAL 153 100 - 199 mg/dL 08/06/2023 2:17 PM DIRECTOR CAREER SERVICES [facility] Comment: Cholesterol, Total Reference Ranges Desirable <200 mg/dL Borderline 200-239 mg/dL High >=240 mg/dL TRIGLYCERIDES 96 <150 mg/dL 08/06/2023 2:17 PM DIRECTOR CAREER SERVICES [facility] HDL CHOLESTEROL 46 >40 mg/dL 2:17 PM DIRECTOR CAREER SERVICES [facility] NON-HDL CHOLESTEROL 107 <145 mg/dl 08/06/2023 2:17 PM DIRECTOR CAREER SERVICES [facility] CHOL/HDL RATIO 3.33 <4.50 08/06/2023 2:17 PM DIRECTOR CAREER SERVICES [facility] LDL CHOLESTEROL 88 <=130 mg/dL 08/06/2023 2:17 PM DIRECTOR CAREER SERVICES [facility] VLDL CHOLESTEROL 19 <=30 mg/dL 08/06/2023 2:17 PM DIRECTOR CAREER SERVICES [facility] PROVIDER ORDERED STATUS RANDOM 08/06/2023 2:17 PM DIRECTOR CAREER SERVICES [facility] Blood BLOOD SPECIMEN / Unknown Venipuncture / Unknown 08/06/2023 8:05 AM DIRECTOR CAREER SERVICES 08/06/2023 8:05 AM DIRECTOR CAREER SERVICES Trell Akins MD CHEMISTRY [facility] [address] [place] [address], * HIV-1/O/2, 4TH GENERATION (01/26/2023 2:58 PM CDT) HIV Scr 4th Gen Non Reactive Non Reactive 01/29/2023 4:[address] [facility] Comment: HIV Negative HIV-1/HIV-2 antibodies and HIV-1 p24 antigen were NOT detected. There is no laboratory evidence of HIV infection. Blood BLOOD SPECIMEN / Unknown Venipuncture / Unknown 01/26/2023 2:58 PM CDT 01/26/2023 2:59 PM CDT Narrative [facility] ([facility] - 01/29/2023 4:08 AM CDT Performed at: ??[address] ??[id number] Guest Attendant: Dylan Foss MD, Phone: ??[phone] Trell Akins MD LABORATORY [facility] ([facility]) [address] [place], [place] [id number], * COLONOSCOPY (09/24/2016 11:00 AM DIRECTOR CAREER SERVICES) 09/24/2016 11:0 0 AM DIRECTOR CAREER SERVICES Narrative Transcriptions Johnie Singh MD - 09/24/2016 11:51 AM CST Patient Name: Choco Oneil Procedure Date: 09/24/2016 Gender: Male Date of : 1965 Admit Type: Outpatient Procedure: Colonoscopy Proceduralist: Johnie Singh MD , Alecia Burkett (Nurse) Indications/Pre-Op Diagnosis: Screening for colorectal malignant neoplasm, This is the patient's first colonoscopy Medications: Fentanyl 100 micrograms IV, Midazolam 4 mgIV, The level of sedation administered wasmoderate Procedure Description: The patient had risks, benefits and alternatives explained to andgave informed consent. The patient had a stable cardiopulmonary status and judged an adequate candidate for conscious sedation. The [id number] was passed through the anus and advanced tothe terminal ileum. The colonoscopy was performed without difficulty. The patient tolerated the procedure well. The quality of the bowel preparation was excellent. The terminal ileum, ileocecal valve, appendiceal orifice, and rectum were photographed. Complications: No immediate complications. Estimated Blood Loss & Specimen: Estimated blood loss: none. Specimen collected - None Findings: The perianal and digital rectal examinations were normal. Many small and large-mouthed diverticula were found in the sigmoidcolon and descending colon. The exam was otherwise without abnormality on direct and retroflexion views. Impressions/Post-Op Diagnosis: - Diverticulosis in the sigmoid colon and in the descending colon. - The examination was otherwise normal on direct and retroflexionviews. - No specimens collected. Recommendation: - Patient has a contact number available for emergencies. The signsand symptoms of potential delayed complications were discussed with the patient. Return to normal activities tomorrow. Written discharge instructions were provided to the patient. - Resume previous diet. - Continue present medications. - Repeat colonoscopy in 10 years for screening purposes. Moderate Sedation: Moderate (conscious) sedation was administered by the endoscopy nurse and supervised by the endoscopist. The following parameters were monitored: oxygen saturation, heart rate, respiratory rate, blood pressure, adequacy of pulmonary ventilation and reponse to care. [facility] flowsheets and nursing notes for moderate sedation details. Total physician intraservice time was 19 minutes. Johnie Singh MD 09/24/2016 11:51:47 AM This report has been signed electronically. Note Initiated On: 09/24/2016 11:00 AM Procedure Code(s): --- Professional --- 44747, Colonoscopy, flexible; diagnostic, including collection of specimen(s) bybrushing or washing, when performed (separateprocedure) Diagnosis Code(s): --- Professional --- Z12.11, Encounter for screening formalignant neoplasm of colon K57.30, Diverticulosis of large intestine without perforation or abscess withoutbleeding CPT copyright 2016 [employer]. All rights reserved. The codes documented in this report are preliminary and upon car attendant reviewmay be revised to meet current compliance requirements. Scope In: 11:30:28 AM Scope Withdrawal Time 0 hours 11 minutes 38 seconds Scope Out: 11:47:42 AM Johnie Singh MD PROCEDURE ORD * ANTI HCV (09/25/2015 5:16 PM DIRECTOR CAREER SERVICES) HEPATITIS C ANTIBODY Non-Reacti ve Non-Reacti ve 09/26/2015 1:29 PM DIRECTOR CAREER SERVICES [facility] [email or web address] [facility] Blood specimen (specimen) BLOOD SPECIMEN / Unknown Venipuncture / Unknown 09/25/2015 5:16 PM DIRECTOR CAREER SERVICES 09/25/2015 5:16 PM DIRECTOR CAREER SERVICES Narrative [facility] - 09/26/2015 1:29 PM DIRECTOR CAREER SERVICES Antibodies to HCV not detected; does not exclude the possibility of exposure to HCV. Trell Akins MD SEND OUTS [facility] [address] [place] [address], [place] from Last 3 Months or Most Recently Relevant to Health Maintenance Advance Directives * Full Code (Latest Code Status on File) Date Activated Date Inactivated Comments 06/15/2012 9:21 AM 06/16/2012 2:41 PM Care Teams Chair Trimmer Relationship Specialty Start Date End Date Trell Akins MD [address] [place] [address] PCP - General Family Practice 09/20/12 Maribel Jimenez MD [address] [place] [address] Rheumatology Rheumatology 10/06/16
--- OUTSIDE RECORDS SUMMARY | 2024-04-06 02:53 | XMS_ITS | Encounter Summary ---
Author Organization [facility] Address [address] [place] [address] Care Team Providers Care Breeding Manager Name Role Phone Trell Akins MD Primary Care Provider Encounter Details Date Type Department Care Team (Late st Contact Info) Description 05/25/2007 Consent for Procedure/Treatme nt [facility] [address] [facility] [address] [place] [id number] Joselito Geiger MD INFORMED CONSENT RECORD Social [...] * Joselito Geiger - 05/25/2007 12:00 AM EPILEPSY PHYSICIAN EPSY PHYSICIAN documented in this encounter Plan of Treatment Not on file documented as of this encounter Visit Diagnoses Not on filedocumented in this encounter Care Teams Breeding Manager Relationship Specialty Start Date End Date Trell Akins MD [address] [place] [address] PCP - General Family Practice 06/27/16 documented as of this encounter
--- OUTSIDE RECORDS SUMMARY | 2024-04-06 02:53 | XMS_ITS | Clinical Summary ---
Author Organization [facility] Address [address] [place] [address] Care Team Providers Care Cloth Printing Inspector Name Role Phone Trell Akins MD Primary Care Provider Source Comments You are receiving this document as you are listed as the primary care provider,follow-up provider, or the patient has been referred to you for consultation.This is in compliance with the Medicare and[facility] EHR Incentive Program,which states Providers who transition their patient to another setting of careor provider of care or refers their patient to another provider of care shouldprovide summary care record for each transition of care or referral. [facility] Allergies Active Allergy Reactions Criticality Noted Date Comments Penicillins 08/26/2006 Medications Medication Sig Dispensed Refills Start Date End Date Status Naproxen Sodium (ALEVE OR) Take as needed Active valacyclovir (AKA VALTREX) 1000 MG tablet Reported on 08/25/2016 Active Cyanocobalamin (VITAMIN B-12) [address] under tongue. Activ e traMADol (ULTRAM) 50 MG tablet 1-2 po QHS prn 01/30/2016 Active Active Problems Problem Noted Date Diagnosed Date Substance abuse 08/26/2006 Lumbago 12/24/2002 Overview (03/11/2017): Pain Low Back Resolved Problems Problem Noted Date Diagnosed Date Resolved Date Substance abuse 08/26/2006 08/26/2006 Overview (08/26/2006): Pt. States he quit using Crack Cocaine in . Immunizations Name Administration Dates Next Due Flu Vac (3+ yrs) 06/05/2009 [id number] 06/05/2009 Influenza, Unspecified Formulation 07/27/2002 Tdap 06/18/2007 [...] 147.4 kg (325 lb) 07/29/2022 2:48 PM NIB ASSEMBLER Height 185.4 cm (6' 1) 07/29/2022 2:48 PM NIB ASSEMBLER Body Mass Index 42.88 07/29/2022 2:48 PM NIB ASSEMBLER Plan of Treatment Health Maintenance Due Date Last Done Comments Colon Cancer Screening Plan Due 1965 Hep C Screening (Preventive Services) 1965 MTM Covered 1965 HIV Screening (Preventive Services) 1982 HepB (1) 1985 Adult Preventive Visit 08/26/2007 08/26/2006 Cholesterol 10/04/2014 10/04/2009, 10/18, 05/14/1998 PSA Screening Discussion 07/23/2023 07/23/2022, 12/18 COVID-19 Vaccine ( season) 2024 04/14/2022, 11/20/2021, 05/20/2021, Additional history exists Influenza (#1) 2024 04/14/2022, 03/20, 04/05/2020, Additional history exists DTaP/Tdap/Td (5 - Tdap) 07/30/2031 07/30/19 22, 03/11/2012, 07/20/2007, Additional history exists Zoster/Shingles Completed [...] on patient's age to complete this topic Procedures Procedure Name Priority Date/Time Associated Diagnosis Comments LIPID PANEL, FAST > 12 HOUR Routine 10/04/2009 5:27 AM CDT PROSTATIC SPECIFIC ANTIGEN(SCREEN) Routine 12/29/2001 10:28 AM CDT from Last 3 Months or Most Recently Relevant to Health Maintenance Results * (ABNORMAL) Cholesterol Lipid Panel Fast > 12 Hr (Chol, HDL, Trig, Calc LDL) (Must be fasting) (10/04/2009 5:27 AM CDT) Cholesterol 138 0 - 199 mg/dl [facility] Triglyceride 53 0 - 149 mg/dl [facility] HDL 38(L) >40 mg/dl [facility] LDL, Calc. 89 0 - 129 mg/dl [facility] Hours Fasting Information Not Given hours [facility] 10/04/2009 5:27 AM CDT 10/04/2009 5:28 AM CDT Trell Bansal MD LAB_1 [place], [place] [phone] * Prostatic Specific Antigen (Screen) (12/29/2001 10:28 AM CDT) Prostate Specific Antigen 0.3 0.0 - 4.0 ng/mL HP CONVERSION 12/29/2001 10:2 8 AM CDT Valente Gibson LAB_1 HP CONVERSION from Last 3 Months or Most Recently Relevant to Health Maintenance Advance Directives * Full Code (Latest Code Status on File) Date Activated Date Inactivated Comments 10/03/2009 6:10 PM 10/04/2009 3:47 PM Care Teams Cloth Printing Inspector Relationship Specialty Start Date End Date Trell Akins MD [address] [place] [address] PCP - General Family Practice 06/27/16
[2024-04-06 02:55] VITALS: PULSE 64; O2SAT 93
[2024-04-06 03:03] LABS: Chloride* 102 mmol/L (96-114); Potassium* 3.9 mmol/L (3.6-5.1); Sodium* 141 mmol/L (135-149)
[2024-04-06 03:06] LABS: Anion Gap 11 mEq/L (7-15); Blood Urea Nitrogen* 20 mg/dL (7-30); Carbon Dioxide* 28 mmol/L (20-32); Creatinine* 0.9 mg/dL (0.5-1.5); Est. Creatinine Clearance* 105.29; Estimated Glomerular Filt Rate 100 ml/min
[2024-04-06 03:07] LABS: Calcium* 9.7 mg/dL (8.4-10.6); Glucose* 112 mg/dL (60-115)
[2024-04-06 03:08] LABS: Ethanol* < 0.01 % (0.01-0.03)
== END 2024-04-06 04:31 | disposition home or self-care (01) ==
PROVIDERS: Emergency Provider Emergency Medicine; PCP Family Medicine
DX: I48.0 Paroxysmal atrial fibrillation (principal)
CPT/HCPCS: 36415; 80048; 82077; 84443; 84484; 85025; 93005; 99283; 99284

== ENCOUNTER 2024-04-15 10:32 | Outpatient (CLI) | payer OTHER, SELFPAY ==
--- OUTSIDE RECORDS SUMMARY | 2024-04-15 10:35 | XMS_ITS | Clinical Summary ---
Author Organization [facility] Address [place], [place] [address] Care Team Providers Care Rivet Hole Machine Operator Name Role Phone Trell Akins MD Primary Care Provider Maribel Jimenez MD Unavailable [phone] Allergies Active Allergy Reactions Criticality Noted Date [...] Resolved Date Psoriatic arthritis (HCC). S ees Tool Repairer Bench (Russ) at [facility] Rheum 01/30/2016 01/24/2021 Heel pain 03/05/2009 07/29/2019 Acute prostatitis 03/05/2009 01/27/2023 Encounters Date Type Department Care Team Description 04/13/2024 Travel 04/06/2024 Telephone [facility] [address] [facility] [address] [place] [phone] Anam Zimmerman MD paroxysmal atrial fibrillation 04/04/2024 3:45 PM CDT Office Visit [facility] [address] [place] [address] Trell Akins MD Preoperative Exam (DOS: 04/15/2024, colonoscopy, [facility], Dr. Singh) 04/04/2024 Travel 03/29/2024 Refill [facility] [address] [place] [address] Trell Akins MD Refill Request (Tramadol) 02/28/2024 Refill [facility] [address] [place] [address] Trell Akins MD Refill Request (Tramadol) 02/19/2024 Orders Only [facility] Scanner 1 scan: (1-Ord) [facility], INJ RIGHT GLUTEAL TENDON INSERTION, 02/19/2024 02/17/2024 Orders Only [facility] Scanner 1 scan: (1-Ord) [facility], FOREIGN BODY REMOVAL, 02/17/2024 01/28/2024 Orders Only [facility] Scanner 1 scan: (1-Ord) [facility], SUBACROMIAL INJ, 01/28/2024 01/26/2024 Refill [facility] [address] [place] [address] Trell Akins MD Refill Request (Tramadol) 01/18/2024 10:55 AM CDT Office Visit [facility] [address] [place] [address] Trell Akins MD Abdominal Pain (LUQ pain, started 01/17/2024) 01/18/2024 Telephone [facility] [address] [place] [address] Johnie Singh MD Pre Procedure 01/18/2024 Travel 01/18/2024 Telephone [facility] [address] [place] [address] Trell Akins MD Error-please disregard from Last [...] No Comments:on Chantix-no cigs in 10 days 14 Alcohol Use Standard Drinks/Week Comments Yes 0 [...] 36.7 ??C (98 ??F) 08/08/2021 9:14 AM MINILAB OPERATOR Respiratory Rate 12 10/26/2017 11:0 3 AM [...] Description 04/15/2024 12:15 PM CDT Office Visit [facility] [address] [place] [address] Johnie Singh MD [address] [place] [address] Arrived 04/27/2024 2:00 PM CDT Ancillary Procedure [facility] [address] [place] [address] 05/13/2024 3:00 PM CDT Office Visit [address] [place] [address] Janay Lea MD [address] [place] [address] [place] [address] 05/23/2024 1:40 PM MINILAB OPERATOR Office Visit [facility] [address] [place] [address] Robinson Gómez MD [address] [place], [place] [phone] Health Maintenance Due Date Last Done Comments [...] Additional history exists Colonoscopy through age 76 09/24/202604/15, 09/24/2016, 09/24/2016 Lipids for age 45-75 08/06/2028 08/06/2023, 07/23/2022, [...] 01/26/2023, 07/23/2022 Medical Devices Implanted Type Area Airline Lounge Receptionist Device Identifier Shelf Expiration Date Model / Serial / Lot [id number] Implanted:Qty: 1 on 06/15/2012 at [facility] Explanted:at [facility] (Quantity not on file) Stomach [employer]CE[employer] WING 02/17/2014 [id number] / [id number] / Description:ALLODERM 2X12 Procedures Procedure Name Priority Date/Time Associated Diagnosis Comments COLONOSCOPY SCREENING Routine 04/15/2024 9:00 AM CDT Screening for colon cancer SCAN-OPERATIVE/PROCE DURE REPORT 02/19/2024 12:00 AM CDT [...] AM CDT Vitamin B12 deficiency HEMOGLOBIN A1C MONITORING (POCT) Routine 01/18/2024 11:32 AM CDT Diabetes mellitus without complication (HC) LIPID PANEL W REFLEX MEASURED LDL Routine 08/06/2023 8:05 AM MINILAB OPERATOR Type II or unspecified type diabetes mellitus without mention of complication, not stated as uncontrolled LC HIV-1/O/2, 4TH GENERATION Routine 01/26/2023 2:58 PM CDT Screening for HIV (human immunodeficiency virus) ANTI HCV Routine 09/25/2015 5:16 PM MINILAB OPERATOR Vitamin D deficiency DM (diabetes mellitus) from [...] 11.0 thou/cu mm 01/18/2024 11:36 AM CDT [facility] RED BLOOD COUNT 4.45 4.30 - 5.90 mil/cu mm 01/18/2024 11:36 AM CDT [facility] HEMOGLOBIN 14.1 13.5 - 17.5 g/dL 01/18/2024 11:36 AM CDT [facility] HEMATOCRIT 41.9 37.0 - 53.0 % 01/18/2024 11:36 AM CDT [facility] MCV 94 80 - 100 fL 01/18/2024 11:36 AM CDT [facility] MCH 31.7 26.0 - 34.0 pg 01/18/2024 11:36 AM CDT [facility] MCHC 33.7 32.0 - 36.0 g/dL 01/18/2024 11:36 AM CDT [facility] RDW 13.8 11.5 - 15.5 % 01/18/2024 11:36 AM CDT [facility] PLATELET COUNT 235 140 - 440 thou/cu mm 01/18/2024 11:36 AM CDT [facility] MPV 10.7 6.5 - 11.0 fL 01/18/2024 11:36 AM CDT [facility] % NEUT 66.3 % 01/18/2024 11:36 AM CDT [facility] % LYMPH 21.4 % 01/18/2024 11:36 AM CDT [facility] % MONO 9.7 % 01/18/2024 11:36 AM CDT [facility] % EOS 2.0 % 01/18/2024 11:36 AM CDT [facility] % BASO 0.6 % 01/18/2024 11:36 AM CDT [facility] ABSOLUTE NEUTROPHILS 4.2 1.7 - 7.0 thou/cu mm 01/18/2024 11:36 AM CDT [facility] ABSOLUTE LYMPHOCYTES 1.4 0.9 - 2.9 thou/cu mm 01/18/2024 11:36 AM CDT [facility] ABSOLUTE MONOCYTES 0.6 <0.9 thou/cu mm 01/18/2024 11:36 AM CDT [facility] ABSOLUTE EOSINOPHILS 0.1 <0.5 thou/cu mm 01/18/2024 11:36 AM CDT [facility] ABSOLUTE BASOPHILS 0.0 <0.3 thou/cu mm 01/18/2024 11:36 AM CDT [facility] Blood BLOOD SPECIMEN / Unknown Venipuncture / Unknown 01/18/2024 11:32 AM CDT 01/18/2024 11:32 AM CDT Trell Akins MD HEMATOLOGY [facility] [address] [place] [address], * TESTOSTERONE,TOTAL (01/18/2024 11:32 AM CDT) Pathologist [facility] TESTOSTERONE,T OTAL 454.0 ng/dL 01/19/2024 4:19 AM CDT [facility] Blood BLOOD SPECIMEN / Unknown Venipuncture / Unknown 01/18/2024 11:32 AM CDT 01/18/2024 11:32 AM CDT Narrative [facility] - 01/19/2024 4:19 AM CDT ? TESTOSTERONE, TOTAL REFERENCE RANGES Age Range ? Female ?Male ?Units 20-50 years ? 8.4-48.1 ?249.0-836.0 ?? ng/dl 50-999 years ?2.9-40.8 ?193.0-740.0 ?? ng/dl Trell Akins MD CHEMISTRY Performing Organization Address City/[facility]/ZIP Co de Phone Number [facility] [address] [place] [address], * HEMOGLOBIN A1C MONITORING (POCT) (01/18/2024 11:32 AM CDT) HEMOGLOBIN A1C MONITORING (POCT) 6.1 <=6.4 % 01/18/2024 11:41 AM CDT [facility] Blood BLOOD SPECIMEN / Unknown Venipuncture / Unknown 01/18/2024 11:32 AM CDT 01/18/2024 11:32 AM CDT Narrative [facility] - 01/18/2024 11:41 AM CDT ? (<=6.9%) [...] Trell Akins MD CHEMISTRY Performing Organization Address City/[facility]/ZIP Co de Phone Number [facility] [address] [place] [address], * (ABNORMAL) VITAMIN B12 (01/18/2024 11:32 AM CDT) VITAMIN B12 1,446(H) 232 - 1,245 pg/mL 01/19/2024 3:48 AM CDT [facility] Blood BLOOD SPECIMEN / Unknown Venipuncture / Unknown 01/18/2024 11:32 AM CDT 01/18/2024 11:32 AM CDT [facility] - 01/19/2024 3:48 AM CDT Biotin supplements may cause clinically significant interference for this test assay. ??If interference is suspected, it is strongly recommended that biotin is discontinued for at least one week prior to retesting. Trell Akins MD CHEMISTRY Performing Organization Address [facility] Co de Phone Number [facility] [address] [place] [address], * PSA TOTAL SCREEN (01/18/2024 11:32 AM CDT) Pathologist [facility] PSA TOTAL (SCREEN) 0.24 <4.00 ng/mL 01/19/2024 3:48 AM CDT [facility] Blood BLOOD SPECIMEN / Unknown Venipuncture / Unknown 01/18/2024 11:32 AM CDT 01/18/2024 11:[address] [facility] - 01/19/2024 3:48 AM CDT The [...] Trell Akins MD LABORATORY Performing Organization Address [facility] Co de Phone Number [facility] [address] [place] [address], [place] * LIPID PANEL W REFLEX MEASURED LDL (08/06/2023 8:05 AM MINILAB OPERATOR) CHOLESTEROL,TOTAL 153 100 - 199 mg/dL 08/06/2023 2:17 PM MINILAB OPERATOR [facility] Comment: Cholesterol, Total Reference Ranges Desirable <200 mg/dL Borderline 200-239 mg/dL High >=240 mg/dL TRIGLYCERIDES 96 <150 mg/dL 08/06/2023 2:17 PM MINILAB OPERATOR [facility] HDL CHOLESTEROL 46 >40 mg/dL 2:17 PM MINILAB OPERATOR [facility] NON-HDL CHOLESTEROL 107 <145 mg/dl 08/06/2023 2:17 PM MINILAB OPERATOR [facility] CHOL/HDL RATIO 3.33 <4.50 08/06/2023 2:17 PM MINILAB OPERATOR [facility] LDL CHOLESTEROL 88 <=130 mg/dL 08/06/2023 2:17 PM MINILAB OPERATOR [facility] VLDL CHOLESTEROL 19 <=30 mg/dL 08/06/2023 2:17 PM MINILAB OPERATOR [facility] PROVIDER ORDERED STATUS RANDOM 08/06/2023 2:17 PM [facility] Blood BLOOD SPECIMEN / Unknown Venipuncture / Unknown 08/06/2023 8:05 AM MINILAB OPERATOR 08/06/2023 8:05 AM MINILAB OPERATOR Trell Akins MD CHEMISTRY [facility] [address] [place] [address], [place] * LC HIV-1/O/2, 4TH GENERATION (01/26/2023 2:58 PM CDT) HIV Scr 4th Gen Non Reactive Non Reactive 01/29/2023 4:08 AM CDT [facility] Comment: HIV Negative HIV-1/HIV-2 antibodies and HIV-1 p24 antigen were NOT detected. There is no laboratory evidence of HIV infection. Blood BLOOD SPECIMEN / Unknown Venipuncture / Unknown 01/26/2023 2:58 PM CDT 01/26/2023 2:59 PM CDT Narrative [facility] ([facility]) - 01/29/2023 4:08 AM CDT Performed at: ??01 - [facility] [address] [place] [address], [place], [place] [phone] Foster Care Worker: Dylan Foss MD, Phone: ??[phone] Trell Akins MD LABORATORY [facility] ([facility]) [address] [place] [address], * COLONOSCOPY (09/24/2016 11:00 AM MINILAB OPERATOR) 09/24/2016 11:0 0 AM MINILAB OPERATOR Narrative Transcriptions Johnie Singh MD - 09/24/2016 [...] adequate candidate for conscious sedation. The [id number] was passed through the anus and advanced [...] reponse to care. [facility] and nursing notes for moderate sedation details. Total physician intraservice time was 19 minutes. Johnie Singh MD 09/24/2016 11:51:47 AM This report has been signed electronically. Note Initiated On: 09/24/2016 11:00 AM Procedure Code(s): --- Professional --- 21402, Colonoscopy, flexible; diagnostic, including collection of specimen(s) bybrushing or washing, when performed (separateprocedure) Diagnosis Code(s): --- Professional --- Z12.11, Encounter for screening formalignant neoplasm of colon K57.30, Diverticulosis of large intestine without perforation or abscess withoutbleeding CPT copyright 2016 [employer]. All rights reserved. The codes documented in this report are preliminary and upon physician coder reviewmay be revised to meet current compliance requirements. Scope In: 11:30:28 AM Scope Withdrawal Time 0 hours 11 minutes 38 seconds Scope Out: 11:47:42 AM Johnie Singh MD PROCEDURE ORD * ANTI HCV (09/25/2015 5:16 PM MINILAB OPERATOR) HEPATITIS C ANTIBODY Non-Reacti ve Non-Reacti ve 09/26/2015 1:29 PM MINILAB OPERATOR [facility] Blood specimen (specimen) BLOOD SPECIMEN / Unknown Venipuncture / Unknown 09/25/2015 5:16 PM MINILAB OPERATOR 09/25/2015 5:16 PM MINILAB OPERATOR Narrative [facility] - 09/26/2015 1:29 PM MINILAB OPERATOR Antibodies to HCV not detected; does not exclude the possibility of exposure to HCV. Trell Akins MD SEND OUTS [facility] [address] [place] [address], from Last 3 Months or Most Recently Relevant to Health Maintenance Advance Directives * Full Code (Latest Code Status on File) Date Activated Date Inactivated Comments 06/15/2012 9:21 AM 06/16/2012 2:41 PM Care Teams Rivet Hole Machine Operator Relationship Specialty Start Date End Date Trell Akins MD [address] [place] [address] PCP - General Family Practice 09/20/12 Maribel Jimenez MD [address] [facility] [address] [place] [address] Rheumatology Rheumatology 10/06/16
--- OUTSIDE RECORDS SUMMARY | 2024-04-15 10:35 | XMS_ITS | Encounter Summary ---
Author Organization [facility] Address [address] [place] [address] Care Team Providers Care [employer] Glazer Name Role Phone Trell Akins MD Primary Care Provider Encounter Details Date Type Department Care Team (Late st Contact Info) Description 05/25/2007 Consent for Procedure/Treatme nt [facility] [address] [facility] [address] [place] [id number] Joselito Geiger MD INFORMED CONSENT RECORD Social [...] * Joselito Geiger - 05/25/2007 12:00 AM ROUGH AND TRUING MACHINE OPERATOR H AND TRUING MACHINE OPERATOR documented in this encounter Plan of Treatment Not on file documented as of this encounter Visit Diagnoses Not on filedocumented in this encounter Care Teams [employer] Glazer Relationship Specialty Start Date End Date Trell Akins MD [address] [place] [address] PCP - General Family Practice 06/27/16 documented as of this encounter
--- OUTSIDE RECORDS SUMMARY | 2024-04-15 10:35 | XMS_ITS | Clinical Summary ---
Author Organization [facility] Address [address] [place] [address] Care Team Providers Care Lace Roller Operator Name Role Phone Trell Akins MD Primary Care Provider Source Comments You are receiving this document as you are listed as the primary care provider,follow-up provider, or the patient has been referred to you for consultation.This is in compliance with the Medicare and[facility] EHR Incentive Program,which states Providers who transition their patient to another setting of careor provider of care or refers their patient to another provider of care shouldprovide summary care record for each transition of care or referral. [employer] Allergies Active Allergy Reactions Criticality Noted Date [...] Next Due Flu Vac (3+ yrs) 06/05/2009 [id number] 06/05/2009 Influenza, Unspecified Formulation 07/27/2002 Tdap 06/18/2007 [...] 147.4 kg (325 lb) 07/29/2022 2:48 PM COFFEE SHOP MANAGER Height 185.4 cm (6' 1) 07/29/2022 2:48 PM COFFEE SHOP MANAGER Body Mass Index 42.88 07/29/2022 2:48 PM COFFEE SHOP MANAGER Plan of Treatment Health Maintenance Due Date [...] 5:28 AM CDT Trell Bansal MD [facility] [place], [place] [phone] * Prostatic Specific Antigen (Screen) (12/29/2001 10:28 AM CDT) Prostate Specific Antigen 0.3 0.0 - 4.0 ng/mL HP CONVERSION 12/29/2001 10:2 8 AM CDT Valente Gibson [facility] HP CONVERSION from Last 3 Months or Most Recently Relevant to Health Maintenance Advance Directives * Full Code (Latest Code Status on File) Date Activated Date Inactivated Comments 10/03/2009 6:10 PM 10/04/2009 3:47 PM Care Teams Lace Roller Operator Relationship Specialty Start Date End Date Trell Akins MD [address] [place] [address] PCP - General Family Practice 06/27/16
--- NOTE | 2024-04-15 11:17 | W.ANESCHARGE ---
Anesthesia Charges Start Date/Time Anesthesia Start Date: 04/15/24 Anesthesia Start Time: 12:15 Stop Date/Time Anesthesia Stop Date: 04/15/24 Anesthesia Stop Time: 12:46
--- NOTE | 2024-04-15 12:47 | W.ANESCHARGE ---
Anesthesia Charges Start Date/Time Anesthesia Start Date: 04/15/24 Anesthesia Start Time: 12:15 Stop Date/Time Anesthesia Stop Date: 04/15/24 Anesthesia Stop Time: 12:46
== END 2024-04-15 10:33 | disposition home or self-care (01) ==
LOC: OP CLINIC 10:33
PROVIDERS: PCP Family Medicine; Visit Provider Internal Medicine Gastroenterology
DX: R93.3 Abnormal findings on diagnostic imaging of other parts of digestive tract (principal); K57.32 Diverticulitis of large intestine without perforation or abscess without bleeding; D12.0 Benign neoplasm of cecum; D12.1 Benign neoplasm of appendix; K57.30 Diverticulosis of large intestine without perforation or abscess without bleeding
CPT/HCPCS: 00811; 45385; 88305; J2704